=== PATIENT | female | born 1980 | race African-American/Black ===

== ENCOUNTER 2017-02-02 15:07 | Inpatient (IN) | payer SELFPAY ==
[~2017-02-02] VITALS: Ht 170.2 cm; Wt 59.4 kg
[~2017-02-02 15:07] MED LIST: ALPR0.25 PO; ASPI-630 PO; ASPI325T8 PO; ATOR20TA58 PO; CLIN150C14 PO; CLIN300C8 PO; FLUT16SP NS; FLUT9.9S NS; NAPR-682 PO; OMEP40CA5 PO; OXYC-323 PO; TRAM-48 PO
[2017-02-02] MEDS ORDERED: IV NORMAL SALINE 1000ML BAG 1,000 ML IV SCH (15:37)
[2017-02-02] MEDS ORDERED: ASPIRIN CHEWABLE 81 MG TABLET. PO ONE (15:45)
[2017-02-02 15:50] LABS: BASO % 1 % (0-3); EOS % 1 % (0-3); HEMATOCRIT 33.9 % (36.0-47.0); LYMPH # 1.8 x10^3/uL (1.0-4.8); LYMPH % 33 % (24-48); MEAN CORPUSCULAR HEMOGLOBIN 27 pg (25-35); MEAN CORPUSCULAR HGB CONC 33 g/dL (31-37); MEAN CORPUSCULAR VOLUME 81 fL (79-100); MONO % 8 % (0-9); NEUT % 58 % (31-73); PLATELET COUNT 254 x10^3/uL (140-400); RED BLOOD COUNT 4.16 x10^6/uL (3.50-5.40); RED CELL DISTRIBUTION WIDTH 21.5 % (11.5-14.5); WHITE BLOOD COUNT 5.4 x10^3/uL (4.0-11.0)
[2017-02-02 15:59] LABS: ANION GAP 10 (6-14); BLOOD UREA NITROGEN 10 mg/dL (7-20); CALCIUM 9.7 mg/dL (8.5-10.1); CARBON DIOXIDE 27 mmol/L (21-32); CHLORIDE 99 mmol/L (98-107); GFR 76.3; GLUCOSE 112 mg/dL (70-99); SODIUM 136 mmol/L (136-145)
[2017-02-02 16:04] LABS: ALBUMIN 4.2 g/dL (3.4-5.0); ALK PHOS 47 U/L (46-116); ALT (SGPT) 14 U/L (14-59); AST (SGOT) 18 U/L (15-37); DIRECT BILIRUBIN < 0.1 mg/dL (0.0-0.2); MAGNESIUM 2.2 mg/dL (1.8-2.4); TOTAL BILIRUBIN 0.2 mg/dL (0.2-1.0)
[2017-02-02 16:11] LABS: CREATINE KINASE 44 U/L (26-192)
[2017-02-02 16:16] LABS: CKMB MASS < 0.5 ng/mL (0.0-3.6)
[2017-02-02 16:38] LABS: BARBITURATES NEG (NEG); BENZODIAZEPINES NEG (NEG); CANNABINOIDS NEG (NEG); COCAINE NEG (NEG); METHADONE NEG (NEG); OPIATES NEG (NEG); PHENCYCLIDINE NEG (NEG)
--- NOTE | 2017-02-02 16:58 | RAD ---
Portable chest, 02/02/2017: History: Tachycardia Comparison is made to a study from 03/04/2016. The heart size and pulmonary vascularity are normal. A calcified granuloma is present in the right base. No pulmonary infiltrates are seen. There is no evidence of pleural fluid. IMPRESSION: No acute cardiopulmonary abnormality is detected.
[2017-02-02 17:25] LABS: ANISOCYTOSIS MOD; PLT ESTIMATE ADEQUATE (ADEQUATE); POLYCHROMASIA SLIGHT
--- NOTE | 2017-02-02 17:32 | PHYS DOC ---
Past Medical History Past Medical History: A-Fib, CVA Additional Past Medical Histor: PFO, CVA 2014 Past Surgical History: Tubal ligation Alcohol Use: None Drug Use: None Adult General Chief Complaint Chief Complaint: RAPID HEART RATE HPI HPI Patient is a 37 year old female who states that she was riding in the car with her boyfriend when she felt her heart beating very fast, she felt faint and she almost passed out. She told him to drive her here to get checked out. She feels a bit better now but still feels like her heart is pounding. She also feels a discomfort in her chest that feels like a burning or a rubbing sensation. Patient states she was recently hospitalized at [facility] for A. fib. She was discharged on January 31 with a prescription for diltiazem which she has been taking. Prior to this, she had not had a history of A. fib in the past. She is on low-dose aspirin but is not on a blood thinner. Patient states she has a PFO and had a CVA in 2014. She has only left hand numbness as a residual. She did not have echocardiogram during her recent hospitalization, that she has had a transesophageal echo in the past. Patient denies . She has had her tubes tied. Patient states that both of her legs feel weak and she feels "off balance". This started about 2 days ago. She has generalized weakness but it might be worse in her left leg. She has not had difficulty using her hands but her hand felt "shaky" when she tried to sign her name. No history of slurred speech or aphasia. Review of Systems Review of Systems Constitutional: Denies fever or chills [] HENT: Denies nasal congestion or sore throat [] Respiratory: Denies cough or shortness of breath [] Cardiovascular: As in history of present illness GI: Denies abdominal pain, nausea, vomiting, bloody stools or diarrhea [] : Denies Musculoskeletal: Denies back pain or joint pain [] Integument: Denies rash or skin lesions [] Neurologic: As in history of present illness Current Medications Current Medications Current Medications Medications (Trade) Dose Ordered Sig/Cassie Start Time Stop Time Status Last Admin Dose Admin Aspirin (Children'S Aspirin) 324 mg 1X ONCE 02/02/17 15:45 02/02/17 15:46 DC 02/02/17 15:48 324 MG Sodium Chloride 1,000 ml @ 1,000 mls/hr Q1H 02/02/17 15:37 02/02/17 16:36 DC 02/02/17 15:48 1,000 MLS/HR Allergies Allergies Allergies Coded Allergies Type Severity Reaction Last Updated Verified diphenhydramine Allergy Severe 01/04/16 Yes morphine Allergy Severe shortness of breath 07/08/15 Yes amoxicillin Allergy Intermediate hives 06/30/15 Yes hydrocodone Allergy Intermediate HIVES, tolerates Percocet 01/14/16 Yes ibuprofen Allergy Intermediate HIVES,tolerates aspirin 01/14/16 Yes Physical Exam Physical Exam Constitutional: Well developed, well nourished, no acute distress, non-toxic appearance. Alert, mentating normally, warm and dry. Heart rate in the range of 90, sinus rhythm on the monitor. When I had the patient sit up so I could listen to her lungs, her heart rate jumped up to 125-128, sinus tachycardia. Went back to the mid 90s after she laid back on the bed. HENT: Normocephalic, atraumatic, bilateral external ears normal, oropharynx moist, no oral exudates, nose normal. [] Eyes: conjunctiva normal, no discharge. [] Neck: Normal range of motion, no stridor. [] Cardiovascular:Heart rate regular rhythm, no murmur Lungs & Thorax: Bilateral breath sounds clear to auscultation [] Abdomen: Bowel sounds normal, soft, no tenderness, no masses, no pulsatile masses. [] Skin: Warm, dry, no erythema, no rash. [] Extremities: No tenderness, no cyanosis, no clubbing, ROM intact, no edema. [] Neurologic: Alert and oriented X 3, normal motor function, no focal deficits noted. No facial asymmetry, no speech disturbance, no slurred speech or aphasia. Upper extremity strength and lower extremity strength 5 over 5 and equal bilaterally. [id number] nose and heel to pandey normal bilaterally. Current Patient Data Vital Signs Vital Signs Date Time Temp Pulse Resp B/P (MAP) Pulse Ox O2 Delivery O2 Flow Rate FiO2 02/02/17 17:19 90 22 132/78 (96) 100 Room Air 02/02/17 15:19 98.3 98.3 Lab Values Laboratory Tests Test 9/10/17 15:28 02/02/17 15:30 02/02/17 16:15 POC Urine HCG, Qualitative Hcg negative (Negative) White Blood Count 5.4 x10^3/uL (4.0-11.0) Red Blood Count 4.16 x10^6/uL (3.50-5.40) Hemoglobin 11.0 g/dL (12.0-15.5) L Hematocrit 33.9 % (36.0-47.0) L Mean Corpuscular Volume 81 fL (79-100) Mean Corpuscular Hemoglobin 27 pg (25-35) Mean Corpuscular Hemoglobin Concent 33 g/dL (31-37) Red Cell Distribution Width 21.5 % (11.5-14.5) H Platelet Count 254 x10^3/uL (140-400) Neutrophils (%) (Auto) 58 % (31-73) Lymphocytes (%) (Auto) 33 % (24-48) Monocytes (%) (Auto) 8 % (0-9) Eosinophils (%) (Auto) 1 % (0-3) Basophils (%) (Auto) 1 % (0-3) Neutrophils # (Auto) 3.1 x10^3uL (1.8-7.7) Lymphocytes # (Auto) 1.8 x10^3/uL (1.0-4.8) Monocytes # (Auto) 0.4 x10^3/uL (0.0-1.1) Eosinophils # (Auto) 0.0 x10^3/uL (0.0-0.7) Basophils # (Auto) 0.0 x10^3/uL (0.0-0.2) Platelet Estimate Adequate (ADEQUATE) Polychromasia Slight Anisocytosis Mod D-Dimer (Stella) 0.85 ug/mlFEU (0.00-0.50) H Sodium Level 136 mmol/L (136-145) Potassium Level 4.0 mmol/L (3.5-5.1) Chloride Level 99 mmol/L (98-107) Carbon Dioxide Level 27 mmol/L (21-32) Anion Gap 10 (6-14) Blood Urea Nitrogen 10 mg/dL (7-20) Creatinine 1.0 mg/dL (0.6-1.0) Estimated GFR (Cockcroft-Gault) 76.3 Glucose Level 112 mg/dL (70-99) H Calcium Level 9.7 mg/dL (8.5-10.1) Magnesium Level 2.2 mg/dL (1.8-2.4) Total Bilirubin 0.2 mg/dL (0.2-1.0) Direct Bilirubin < 0.1 mg/dL (0.0-0.2) Aspartate Amino Transferase (AST) 18 U/L (15-37) Alanine Aminotransferase (ALT) 14 U/L (14-59) Alkaline Phosphatase 47 U/L (46-116) Creatine Kinase 44 U/L (26-192) Creatine Kinase MB (Mass) < 0.5 ng/mL (0.0-3.6) Creatine Kinase MB Relative Index 1.1 % (0-4) Troponin I Quantitative < 0.017 ng/mL (0.000-0.055) DW-Yog-L-Type Natriuretic Peptide 17 pg/mL (0-124) Total Protein 8.0 g/dL (6.4-8.2) Albumin 4.2 g/dL (3.4-5.0) Thyroid Stimulating Hormone (TSH) 0.943 uIU/mL (0.358-3.74) Urine Opiates Screen Neg (NEG) Urine Methadone Screen Neg (NEG) Urine Barbiturates Neg (NEG) Urine Phencyclidine Screen Neg (NEG) Urine Amphetamine/Methamphetamine Neg (NEG) Urine Benzodiazepines Screen Neg (NEG) Urine Cocaine Screen Neg (NEG) Urine Cannabinoids Screen Neg (NEG) Urine Ethyl Alcohol Neg (NEG) Laboratory Tests 02/02/17 15:30 Laboratory Tests 02/02/17 15:30 EKG EKG 12-lead EKG read by me. Sinus rhythm. Heart rate 87. There are no acute ST or T wave changes indicative of ischemia or infarction. No STEMI. 1813[] Rhythm strip interpretation by me: Heart rate 128, sinus tachycardia, when the patient sat up for lung exam. Radiology/Procedures Radiology/Procedures CT scan of the head read by the radiologist. No acute findings. CT angiography of the chest read by the radiologist. No pulmonary embolism or other abnormalities.[] Course & Med Decision Making Course & Med Decision Making Pertinent Labs and Imaging studies reviewed. (See chart for details) 37-year-old female presents with the sensation of tachycardia and near syncope. Patient gives a history of a recent episode of atrial fibrillation which apparently resolved on its own. Today she does not have atrial fibrillation or any other rhythm disturbance, but she did become significantly tachycardic when she sat up to take deep breaths for lung exam. I feel the patient needs further evaluation for significant sinus tachycardia and recent history of atrial fibrillation. Patient is concerned and wants to be further evaluated as well. I discussed the case with Dr. Pineda, [facility] medicine. She will admit the patient. I wrote bridge orders. The patient does have a history of CVA in 2015 that was attributed to PFO. Today , she did mention that she is concerned about recurrent CVA given the fact that she is "off balance" today and feels "like something isn't right". On evaluation in the ED, her neuro exam is normal. Her symptom onset was about 2 days ago, putting her well outside the window for thrombolytic consideration. Although she feels "off balance", her finger to nose and her bixf-ii-pabe is normal, and objectively tested her strength is normal bilaterally. CT scan of the head shows nothing acute today. Although possible subacute small CVA is a consideration, she is outside of the thrombolytic window and nothing further to be done at this time other than admission and workup of her recent atrial fibrillation episode and tachycardia. [] Dragon Disclaimer Dragon Disclaimer This electronic medical record was generated, in whole or in part, using a voice recognition dictation system. Departure Departure Impression: Primary Impression: PFO (patent foramen ovale) Additional Impressions: Sinus tachycardia Near syncope Disposition: 09 ADMITTED INPATIENT Admitting Physician: Rekha Pineda Condition: STABLE Referrals: ALEXUS ROBLES (PCP) Problem Qualifiers JOSE ELIAS TAVARES MD Feb 02, 2017 17:32
--- NOTE | 2017-02-02 17:33 | RAD ---
Indication: History of CVA. Axial imaging through the brain was performed without contrast. One or more of the following individualized dose reduction techniques were utilized for this examination: 1. Automated exposure control 2. Adjustment of the mA and/or kV according to patient size 3. Use of iterative reconstruction technique Comparison is made with prior exam from 07/08/2015. The ventricles and sulci are within normal limits. No sulcal effacement, midline shift or hemorrhage is detected. Cisterns are patent. The visualized paranasal sinuses are clear. IMPRESSION: No acute intracranial process is detected. Electronically signed by: Oswald Quezada MD (02/02/2017 5:30 PM) [facility]
--- NOTE | 2017-02-02 17:33 | RAD ---
CTA chest with contrast Indication: tachycardia, elevated d-dimer. r/o pe. iv omni 300 75 mls. . Comparison: No comparison is available. Technique: After bolus of intravenous contrast, CT imaging was performed of the chest. MIP reconstructions were obtained. Exposure: One or more of the following individualized dose reduction techniques were utilized for this examination: 1. Automated exposure control 2. Adjustment of the mA and/or kV according to patient size 3. Use of iterative reconstruction technique. Findings: Pulmonary arteries:No evidence of pulmonary embolism. Thoracic aorta: No evidence of aneurysm or dissection. Great vessel origins: There is an aberrant right subclavian artery, with a retroesophageal course. Thyroid gland:Visualized aspect is unremarkable. Lymph nodes:No significant enlargement Heart: No significant pericadial effusion. Pleural spaces: No significant effusion Lungs: Dense calcified granuloma in the right lung. Trachea and central airways: Patent Bones: No destructive process Upper abdomen: Slices were obtained through the upper abdomen, but are of limited usefulness due to technique.No obvious acute findings. Impression: No evidence of pulmonary embolism or acute abnormality. Electronically signed by: Jose William MD (02/02/2017 5:29 PM) [place] [id number]
[2017-02-02] MEDS: IV NORMAL SALINE 1000ML BAG 1,000 ML IV SCH ×2 (17:34→21:16)
[2017-02-02] MEDS ORDERED: ONDANSETRON PF 4 MG/2 ML VIAL. IV PRN ×2 (17:45→18:00)
[2017-02-02] MEDS ORDERED: IOHEXOL 300 MG/ML 75 ML VIAL IV ONE (17:45)
[2017-02-02] MEDS ORDERED: ONDANSETRON PF 4 MG/2 ML VIAL. IV ONE (17:45)
[2017-02-02] MEDS ORDERED: CONTRAST GIVEN MC PRN (17:45)
[2017-02-02] MEDS ORDERED: diphenhydrAMINE HCL 25 MG CAPSULE PO PRN (18:00)
[2017-02-02] MEDS ORDERED: traMADol 50 MG TABLET PO PRN (18:00)
[2017-02-02] MEDS ORDERED: fentaNYL PF VIAL 100 MCG/2 ML VIAL IV PRN (18:00)
[2017-02-02] MEDS ORDERED: ACETAMINOPHEN 500 MG TABLET PO PRN (18:00)
[2017-02-02 18:15] VITALS: BP 125/80
[2017-02-02] MEDS ORDERED: PANT40TA3 PO (19:12)
[2017-02-02] MEDS ORDERED: DOXY100C14 PO (19:12)
[2017-02-02] MEDS ORDERED: ESCITALOPRAM OX10 MG PO (19:12)
[2017-02-02] MEDS ORDERED: LIDO:MAALOX:DONNATAL 1:1:1 15 ML SINGLE DOSE SWSW ONE (20:15)
[2017-02-02] MEDS ORDERED: CALCIUM CARBONATE 500 MG TAB.CHEW PO PRN (20:15)
[2017-02-02] MEDS ORDERED: LIDO:MAALOX:DONNATAL 1:1:1 15 ML SINGLE DOSE SWSW PRN (20:15)
--- NOTE | 2017-02-02 20:21 | PDOC1 ---
History and Physical Date of Admission Date of Admission DATE: 02/02/17 TIME: 20:13 Identification/Chief Complaint Chief Complaint palpitations,. lightheaded, ill feeling with recent cardizem PO Problems: Source Source: Caregiver, Chart review, Patient History of Present Illness History of Present Illness 37 y.o AA female who was in the car with her boyfriend today, developed the above sx so went to ER, She was in [facility] 2 days ago, spent overnight there for what sounds like a dx of paroxysmal atrial fib, no echo done she claims, dcd on PO cardizem. She only has been taking it 2 days and claims she does not like the feeling it gave her, .lightheaded etc,. She claims she did check her BP and is actually on high side, She is now NSR. She intially would go to 120s bpm at ER while at rest talking to ER mD. NOw SBP 120s, HR 80s at rest, Also she mentions bothersome GERD sxs, has not picked up PPI rx'd by . She claims she can hardly eat bec of severe reflux sxs and has lost 2 lbs. (131 to 128 lbs), She is interested in seeing GI MD while in house, though I went to the full education of trial of PPI first then OP GI if sxs persist, LAbs and CXR all ok Past Medical History Cardiovascular: Other (paroxysmal atrial fib) Pulmonary: No pertinent hx CENTRAL NERVOUS SYSTEM: Other GI: GERD Heme/Onc: No pertinent hx Hepatobiliary: No pertinent hx Psych: No pertinent hx Rheumatologic: No pertinent hx Infectious disease: No pertinent hx ENT: No pertinent hx Renal/: No pertinent hx Endocrine: No pertinent hx Dermatology: No pertinent hx Past Surgical History Past Surgical History: Tubal Ligation Family History Family History: Hypertension, Other Social History Smoke: No ALCOHOL: none Drugs: None Current Problem List Problem List Problems Medical Problems: (1) Near syncope Status: Acute (2) PFO (patent foramen ovale) Status: Acute (3) Sinus tachycardia Status: Acute Problems: Current Medications Current Medications Current Medications Aspirin (Children'S Aspirin) 324 mg 1X ONCE PO Last administered on 02/02/17t 15:48; Start 02/02/17 at 15:45; Stop 02/02/17 at 15:46; Status DC Sodium Chloride 1,000 ml @ 1,000 mls/hr Q1H IV Last administered on 02/02/17t 15:48; Start 02/02/17 at 15:37; Stop 02/02/17 at 16:36; Status DC Iohexol (Omnipaque 300 Mg/ml) 75 ml 1X ONCE IV ; Start 02/02/17 at 17:45; Stop 02/02/17 at 17:46; Status DC Ondansetron HCl (Zofran) 4 mg 1X ONCE IV ; Start 02/02/17 at 17:45; Stop at 17:46; Status DC Ondansetron HCl (Zofran) 4 mg PRN Q8HRS PRN IV NAUSEA/VOMITING; Start 02/02/17 at 17:45; Stop 02/02/17 at 17:55; Status DC Sodium Chloride 1,000 ml @ 100 mls/hr Q10H IV ; Start 02/02/17 at 17:34; Stop 02/03/17 at 17:33 Info (Do NOT chart on this entry -- for MONITORING) 1 each PRN DAILY PRN MC SEE COMMENTS; Start 02/02/17 at 17:45; Stop 02/04/17 at 17:44 Ondansetron HCl (Zofran) 4 mg PRN Q6HRS PRN IV NAUSEA/VOMITING; Start 02/02/17 at 18:00; Stop 02/03/17 at 17:59 Acetaminophen (Tylenol) 500 mg PRN QID PRN PO pain; Start 02/02/17 at 18:00 Tramadol HCl (Ultram) 50 mg PRN QID PRN PO pain; Start 02/02/17 at 18:00 Aspirin (Children'S Aspirin) 81 mg DAILY PO ; Start 02/03/17 at 09:00 Atorvastatin Calcium (Lipitor) 20 mg QHS PO ; Start 02/02/17 at 21:00 Fluticasone Propionate (Flonase) 2 spray DAILY NS ; Start 02/03/17 at 09:00 Diphenhydramine HCl (Benadryl) 25 mg QHS PRN PO sleep; Start 02/02/17 at 18:00 ; Stop 02/02/17 at 18:28; Status DC Fentanyl Citrate (Fentanyl 2ml Vial) 25 mcg PRN Q2HR PRN IV pain; Start at 18:00 Alprazolam (Xanax) 0.25 mg PRN QID PRN PO nerves; Start 02/02/17 at 18:00 Active Scripts Active Fluticasone Propionate Nasal Kingston (Fluticasone Propionate) 16 Gm Kingston.susp 2 Kingston NS DAILY Atorvastatin Calcium 20 Mg Tablet 20 Mg PO QHS Reported Doxycycline Monohydrate 100 Mg Capsule 100 Mg PO BID 10 Days Escitalopram Oxalate 10 Mg Tablet 10 Mg PO DAILY Protonix (Pantoprazole Sodium) 40 Mg Tablet.dr 40 Mg PO DAILY Aspirin 81 Mg Tab.chew 1 Tab PO DAILY Allergies Allergies: Coded Allergies: diphenhydramine (Verified Allergy, Severe, 01/04/16) SVT morphine (Verified Allergy, Severe, shortness of breath, 07/08/15) amoxicillin (Verified Allergy, Intermediate, hives, 06/30/15) hydrocodone (Verified Allergy, Intermediate, HIVES, tolerates Percocet, ) ibuprofen (Verified Allergy, Intermediate, HIVES,tolerates aspirin, ) ROS Review of System per HPI, all else is neg 14 pt reviewed Physical Exam General: Alert, Oriented X3, Cooperative, No acute distress HEENT: Atraumatic, PERRLA, EOMI Lungs: Clear to auscultation, Normal air movement Heart: S1S2, RRR, no thrills, no rubs, no gallops, no murmurs Cardiovascular: S1, S2 Breasts: Normal, Rt breast nml w/o mass, Lt breast nml w/o mass, Nipples normal Abdomen: Normal bowel sounds, Soft, No tenderness, No hepatosplenomegaly, No masses Rectal Exam: not examined PELVIC: Nml ext genitalia Extremities: No clubbing, No cyanosis, No edema, Normal pulses, No tenderness/ swelling Skin: No rashes, No breakdown, No significant lesion Neuro: Normal gait, Normal speech, Strength at 5/5 X4 ext, Normal tone, Sensation intact, Cranial nerves 3-12 NL, Reflexes 2+ Psych/Mental Status: Mental status NL, Mood NL Vitals Vitals Vital Signs Date Time Temp Pulse Resp B/P (MAP) Pulse Ox O2 Delivery O2 Flow Rate FiO2 02/02/17 18:15 98.8 87 20 125/80 (95) 99 Room Air 98.8 Labs Labs Laboratory Tests Test 02/02/17 15:28 02/02/17 15:30 02/02/17 16:15 02/02/17 19:00 Bedside Urine HCG, Qualitative Hcg negative (Negative) White Blood Count 5.4 x10^3/uL (4.0-11.0) Red Blood Count 4.16 x10^6/uL (3.50-5.40) Hemoglobin 11.0 g/dL (12.0-15.5) Hematocrit 33.9 % (36.0-47.0) Mean Corpuscular Volume 81 fL (79-100) Mean Corpuscular Hemoglobin 27 pg (25-35) Mean Corpuscular Hemoglobin Concent 33 g/dL (31-37) Red Cell Distribution Width 21.5 % (11.5-14.5) Platelet Count 254 x10^3/uL (140-400) Neutrophils (%) (Auto) 58 % (31-73) Lymphocytes (%) (Auto) 33 % (24-48) Monocytes (%) (Auto) 8 % (0-9) Eosinophils (%) (Auto) 1 % (0-3) Basophils (%) (Auto) 1 % (0-3) Neutrophils # (Auto) 3.1 x10^3uL (1.8-7.7) Lymphocytes # (Auto) 1.8 x10^3/uL (1.0-4.8) Monocytes # (Auto) 0.4 x10^3/uL (0.0-1.1) Eosinophils # (Auto) 0.0 x10^3/uL (0.0-0.7) Basophils # (Auto) 0.0 x10^3/uL (0.0-0.2) Platelet Estimate Adequate (ADEQUATE) Polychromasia Slight Anisocytosis Mod D-Dimer (Stella) 0.85 ug/mlFEU (0.00-0.50) Sodium Level 136 mmol/L (136-145) Potassium Level 4.0 mmol/L (3.5-5.1) Chloride Level 99 mmol/L (98-107) Carbon Dioxide Level 27 mmol/L (21-32) Anion Gap 10 (6-14) Blood Urea Nitrogen 10 mg/dL (7-20) Creatinine 1.0 mg/dL (0.6-1.0) Estimated GFR (Cockcroft-Gault) 76.3 Glucose Level 112 mg/dL (70-99) Calcium Level 9.7 mg/dL (8.5-10.1) Magnesium Level 2.2 mg/dL (1.8-2.4) Total Bilirubin 0.2 mg/dL (0.2-1.0) Direct Bilirubin < 0.1 mg/dL (0.0-0.2) Aspartate Amino Transf (AST/SGOT) 18 U/L (15-37) Alanine Aminotransferase (ALT/SGPT) 14 U/L (14-59) Alkaline Phosphatase 47 U/L (46-116) Creatine Kinase 44 U/L (26-192) Creatine Kinase MB (Mass) < 0.5 ng/mL (0.0-3.6) Creatine Kinase MB Relative Index 1.1 % (0-4) Troponin I Quantitative < 0.017 ng/mL (0.000-0.055) < 0.017 ng/mL (0.000-0.055) KG-Kyf-V-Type Natriuretic Peptide 17 pg/mL (0-124) Total Protein 8.0 g/dL (6.4-8.2) Albumin 4.2 g/dL (3.4-5.0) Thyroid Stimulating Hormone (TSH) 0.943 uIU/mL (0.358-3.74) Urine Opiates Screen Neg (NEG) Urine Methadone Screen Neg (NEG) Urine Barbiturates Neg (NEG) Urine Phencyclidine Screen Neg (NEG) Urine Amphetamine/Methamphetamine Neg (NEG) Urine Benzodiazepines Screen Neg (NEG) Urine Cocaine Screen Neg (NEG) Urine Cannabinoids Screen Neg (NEG) Urine Ethyl Alcohol Neg (NEG) Laboratory Tests Test 02/02/17 15:28 02/02/17 15:30 02/02/17 16:15 02/02/17 19:00 Bedside Urine HCG, Qualitative Hcg negative (Negative) White Blood Count 5.4 x10^3/uL (4.0-11.0) Red Blood Count 4.16 x10^6/uL (3.50-5.40) Hemoglobin 11.0 g/dL (12.0-15.5) Hematocrit 33.9 % (36.0-47.0) Mean Corpuscular Volume 81 fL (79-100) Mean Corpuscular Hemoglobin 27 pg (25-35) Mean Corpuscular Hemoglobin Concent 33 g/dL (31-37) Red Cell Distribution Width 21.5 % (11.5-14.5) Platelet Count 254 x10^3/uL (140-400) Neutrophils (%) (Auto) 58 % (31-73) Lymphocytes (%) (Auto) 33 % (24-48) Monocytes (%) (Auto) 8 % (0-9) Eosinophils (%) (Auto) 1 % (0-3) Basophils (%) (Auto) 1 % (0-3) Neutrophils # (Auto) 3.1 x10^3uL (1.8-7.7) Lymphocytes # (Auto) 1.8 x10^3/uL (1.0-4.8) Monocytes # (Auto) 0.4 x10^3/uL (0.0-1.1) Eosinophils # (Auto) 0.0 x10^3/uL (0.0-0.7) Basophils # (Auto) 0.0 x10^3/uL (0.0-0.2) Platelet Estimate Adequate (ADEQUATE) Polychromasia Slight Anisocytosis Mod D-Dimer (Stella) 0.85 ug/mlFEU (0.00-0.50) Sodium Level 136 mmol/L (136-145) Potassium Level 4.0 mmol/L (3.5-5.1) Chloride Level 99 mmol/L (98-107) Carbon Dioxide Level 27 mmol/L (21-32) Anion Gap 10 (6-14) Blood Urea Nitrogen 10 mg/dL (7-20) Creatinine 1.0 mg/dL (0.6-1.0) Estimated GFR (Cockcroft-Gault) 76.3 Glucose Level 112 mg/dL (70-99) Calcium Level 9.7 mg/dL (8.5-10.1) Magnesium Level 2.2 mg/dL (1.8-2.4) Total Bilirubin 0.2 mg/dL (0.2-1.0) Direct Bilirubin < 0.1 mg/dL (0.0-0.2) Aspartate Amino Transf (AST/SGOT) 18 U/L (15-37) Alanine Aminotransferase (ALT/SGPT) 14 U/L (14-59) Alkaline Phosphatase 47 U/L (46-116) Creatine Kinase 44 U/L (26-192) Creatine Kinase MB (Mass) < 0.5 ng/mL (0.0-3.6) Creatine Kinase MB Relative Index 1.1 % (0-4) Troponin I Quantitative < 0.017 ng/mL (0.000-0.055) < 0.017 ng/mL (0.000-0.055) VJ-Bog-O-Type Natriuretic Peptide 17 pg/mL (0-124) Total Protein 8.0 g/dL (6.4-8.2) Albumin 4.2 g/dL (3.4-5.0) Thyroid Stimulating Hormone (TSH) 0.943 uIU/mL (0.358-3.74) Urine Opiates Screen Neg (NEG) Urine Methadone Screen Neg (NEG) Urine Barbiturates Neg (NEG) Urine Phencyclidine Screen Neg (NEG) Urine Amphetamine/Methamphetamine Neg (NEG) Urine Benzodiazepines Screen Neg (NEG) Urine Cocaine Screen Neg (NEG) Urine Cannabinoids Screen Neg (NEG) Urine Ethyl Alcohol Neg (NEG) VTE Prophylaxis Ordered VTE Prophylaxis Devices: Yes VTE Pharmacological Prophylaxi: Yes Assessment/Plan Assessment/Plan 1. Palpitations, lightheadedness, 2. Recent dc paroxysmal atrial fib in (dcd jan 31, 2017) dcd on PO cardizem 3. CLaims intolerance to cardizem 4. GERD PLAn: Admit, edvin izaguirre Did advise her to cont cardziem and give it time to work/observe its effects If arrhythmia sxs persist, might need event monitor as OP TSH is normal The rest per cards Might need to check echo - claims MAUREEN never did Get records from PPI daily, melvina pederson Would like to see GI while admitted Seen and discussed with JAGDEEP Jacobson at bedside TOOTIE KNIGHT MD Feb 02, 2017 20:20
[2017-02-02 20:52] VITALS: BP 91/50
[2017-02-02] MEDS: ATORVASTATIN CALCIUM 20 MG TABLET PO SCH (21:04)
[2017-02-02] MEDS: ALPRAZolam 0.25 MG TABLET PO PRN (22:23)
[2017-02-02 23:29] VITALS: BP 99/62
[2017-02-02] MEDS: METOPROLOL TART IMMED RELEASE 25 MG TABLET. PO SCH (23:49)
[2017-02-03 03:55] VITALS: BP 103/62
[2017-02-03] MEDS: METOPROLOL TART IMMED RELEASE 25 MG TABLET. PO SCH ×2 (05:48→23:18)
--- NOTE | 2017-02-03 06:14 | EKG ---
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
[2017-02-03 07:00] VITALS: BP 114/60
[2017-02-03 07:09] LABS: CHOLESTEROL/HDL RATIO 2.8
[2017-02-03] MEDS: IV NORMAL SALINE 1000ML BAG 1,000 ML IV SCH (07:51)
[2017-02-03] MEDS ORDERED: ASPIRIN CHEWABLE 81 MG TABLET. PO SCH (09:00)
--- NOTE | 2017-02-03 10:13 | PDOC2 ---
OLGA ANDUJAR VISITOR SERVICES SPECIALIST 02/03/17 1013: CARDIAC CONSULT DATE OF CONSULT Date of Consult DATE: 02/03/17 TIME: 10:00 REASON FOR CONSULT Reason for Consult: recent AFIB, PFO hx, sinus tach REFERRING PHYSICIAN Referring Physician: Redd SOURCE Source: Chart review, Patient HISTORY OF PRESENT ILLNESS HISTORY OF PRESENT ILLNESS This is a pleasant 37 yo female admitted for complains of palpitations and chest discomfort. Reports that she has not been taking any reflux medications has been having frequent episodes of heartburn. Reports that this came first prior to her heart starting to feel like it was beating fast. when she starts having sensation of palpitations she feels tightness in her chest as well and feeling dizzy as well. Denies any vomiting, or diaphoresis and no significant SOA. Reports though that her palpitations is a daily occurrence. She was at 01/31 amd was discharge on 02/01. She was noted with sinus tachycardia but she said there may be a mention of AFIB but no conclusive evidence during her stay here and no mention per chart review. She is significant for PSVT in the past and was actually with heart monitor for 4 weeks dating Feb-Mar 2016 and noted with SR with occasional PACs otherwise no significant ectopies. She is positive for PFO in the past with cryptogenic stroke as well with no residuals and no further recurrence. Upon discharge in she was started on cardizem. Upon admission she was given a low dose metoprolol and was noted with HR in the 40-50s. Overnight she has had episodes of HR in the 130s but brief. Presently she feels like she is having palpitations but her HR is in the 80s. She has anxiety issues and she has been noted to be taking her sisters xanax as well. PAST MEDICAL HISTORY Cardiovascular: Hyperlipidemia, Other (PFO, palpitations, PSVT; presyncope) Pulmonary: Asthma CENTRAL NERVOUS SYSTEM: CVA (03/2015- cryptogenic) GI: GERD Heme/Onc: No pertinent hx Hepatobiliary: No pertinent hx Psych: Anxiety Rheumatologic: No pertinent hx Infectious disease: No pertinent hx ENT: Allergic Rhinitis Renal/: No pertinent hx Endocrine: No pertinent hx Dermatology: No pertinent hx PAST SURGICAL HISTORY Past Surgical History: Tubal Ligation FAMILY HISTORY Family History noncontributory SOCIAL HISTORY Smoke: No ALCOHOL: occassional Drugs: None Lives: with Family CURRENT MEDICATIONS CURRENT MEDICATIONS Current Medications Medications (Trade) Dose Ordered Sig/Cassie Route PRN Reason Start Time Stop Time Status Last Admin Dose Admin Aspirin (Children'S Aspirin) 324 mg 1X ONCE PO 02/02/17 15:45 02/02/17 15:46 DC 02/02/17 15:48 Sodium Chloride 1,000 ml @ 1,000 mls/hr Q1H IV 02/02/17 15:37 02/02/17 16:36 DC 02/02/17 15:48 Sodium Chloride 1,000 ml @ 100 mls/hr Q10H IV 02/02/17 17:34 02/03/17 17:33 02/03/17 07:51 Acetaminophen (Tylenol) 500 mg PRN QID PRN PO pain 02/02/17 18:00 02/02/17 21:13 Atorvastatin Calcium (Lipitor) 20 mg QHS PO 02/02/17 21:00 02/02/17 21:04 Alprazolam (Xanax) 0.25 mg PRN QID PRN PO nerves 02/02/17 18:00 02/02/17 22:23 Multi-Ingredient Mouthwash/Gargle (Gi Cocktail Single Dose) 15 ml 1X ONCE SWSW 02/02/17 20:15 02/02/17 20:18 DC 02/02/17 21:05 Metoprolol Tartrate (Lopressor) 12.5 mg Q6HRS PO 02/03/17 00:00 02/02/17 23:49 ALLERGIES ALLERGIES: Coded Allergies: diphenhydramine (Verified Allergy, Severe, 01/04/16) SVT morphine (Verified Allergy, Severe, shortness of breath, 07/08/15) amoxicillin (Verified Allergy, Intermediate, hives, 06/30/15) hydrocodone (Verified Allergy, Intermediate, HIVES, tolerates Percocet, ) ibuprofen (Verified Allergy, Intermediate, HIVES,tolerates aspirin, ) ROS Review of System 14 point ROS evaluated with pertinent positives noted per HPI PHYSICAL EXAM General: Alert, Oriented X3, Cooperative, No acute distress HEENT: Atraumatic, Mucous membr. moist/pink Lungs: Clear to auscultation, Normal air movement Heart: Regular rate (SR), Normal S1, Normal S2 Abdomen: Soft, No tenderness Extremities: No cyanosis, No edema Skin: No breakdown, No significant lesion Neuro: Normal speech, Sensation intact Psych/Mental Status: Mental status NL, Other (anxiety) MUSCULOSKELETAL: Full range of motion without pain VITALS VITALS Vital Signs Date Time Temp Pulse Resp B/P (MAP) Pulse Ox O2 Delivery O2 Flow Rate FiO2 02/03/17 07:00 98.4 73 16 114/60 (78) 100 Room Air 98.4 LABS Lab: Laboratory Tests Test 02/02/17 15:28 02/02/17 15:30 02/02/17 16:15 02/02/17 19:00 Bedside Urine HCG, Qualitative Hcg negative (Negative) White Blood Count 5.4 x10^3/uL (4.0-11.0) Red Blood Count 4.16 x10^6/uL (3.50-5.40) Hemoglobin 11.0 g/dL (12.0-15.5) Hematocrit 33.9 % (36.0-47.0) Mean Corpuscular Volume 81 fL (79-100) Mean Corpuscular Hemoglobin 27 pg (25-35) Mean Corpuscular Hemoglobin Concent 33 g/dL (31-37) Red Cell Distribution Width 21.5 % (11.5-14.5) Platelet Count 254 x10^3/uL (140-400) Neutrophils (%) (Auto) 58 % (31-73) Lymphocytes (%) (Auto) 33 % (24-48) Monocytes (%) (Auto) 8 % (0-9) Eosinophils (%) (Auto) 1 % (0-3) Basophils (%) (Auto) 1 % (0-3) Neutrophils # (Auto) 3.1 x10^3uL (1.8-7.7) Lymphocytes # (Auto) 1.8 x10^3/uL (1.0-4.8) Monocytes # (Auto) 0.4 x10^3/uL (0.0-1.1) Eosinophils # (Auto) 0.0 x10^3/uL (0.0-0.7) Basophils # (Auto) 0.0 x10^3/uL (0.0-0.2) Platelet Estimate Adequate (ADEQUATE) Polychromasia Slight Anisocytosis Mod D-Dimer (Stella) 0.85 ug/mlFEU (0.00-0.50) Sodium Level 136 mmol/L (136-145) Potassium Level 4.0 mmol/L (3.5-5.1) Chloride Level 99 mmol/L (98-107) Carbon Dioxide Level 27 mmol/L (21-32) Anion Gap 10 (6-14) Blood Urea Nitrogen 10 mg/dL (7-20) Creatinine 1.0 mg/dL (0.6-1.0) Estimated GFR (Cockcroft-Gault) 76.3 Glucose Level 112 mg/dL (70-99) Calcium Level 9.7 mg/dL (8.5-10.1) Magnesium Level 2.2 mg/dL (1.8-2.4) Total Bilirubin 0.2 mg/dL (0.2-1.0) Direct Bilirubin < 0.1 mg/dL (0.0-0.2) Aspartate Amino Transf (AST/SGOT) 18 U/L (15-37) Alanine Aminotransferase (ALT/SGPT) 14 U/L (14-59) Alkaline Phosphatase 47 U/L (46-116) Creatine Kinase 44 U/L (26-192) Creatine Kinase MB (Mass) < 0.5 ng/mL (0.0-3.6) Creatine Kinase MB Relative Index 1.1 % (0-4) Troponin I Quantitative < 0.017 ng/mL (0.000-0.055) < 0.017 ng/mL (0.000-0.055) HA-Ryn-F-Type Natriuretic Peptide 17 pg/mL (0-124) Total Protein 8.0 g/dL (6.4-8.2) Albumin 4.2 g/dL (3.4-5.0) Triglycerides Level 48 mg/dL (0-150) Cholesterol Level 187 mg/dL (0-200) LDL Cholesterol, Calculated 110 mg/dL (0-100) VLDL Cholesterol, Calculated 10 mg/dL (0-40) Non-HDL Cholesterol Calculated 120 mg/dL (0-129) HDL Cholesterol 67 mg/dL (40-60) Cholesterol/HDL Ratio 2.8 Thyroid Stimulating Hormone (TSH) 0.943 uIU/mL (0.358-3.74) Urine Opiates Screen Neg (NEG) Urine Methadone Screen Neg (NEG) Urine Barbiturates Neg (NEG) Urine Phencyclidine Screen Neg (NEG) Urine Amphetamine/Methamphetamine Neg (NEG) Urine Benzodiazepines Screen Neg (NEG) Urine Cocaine Screen Neg (NEG) Urine Cannabinoids Screen Neg (NEG) Urine Ethyl Alcohol Neg (NEG) Test 02/02/17 21:25 Troponin I Quantitative < 0.017 ng/mL (0.000-0.055) ECHOCARDIOGRAM ECHOCARDIOGRAM <Conclusion> TTE Left ventricle systolic function is normal. The Ejection Fraction is 65-70%. There is normal LV segmental wall motion. Patient has a known PFO from previous TRISTEN with bubble study. Color doppler was negative on this study. No significant valvular disease. DATE: 03/05/16 152 STRESS TEST STRESS TEST IMPRESSION Normal Myocardial Perfusion exercise stress study Conclusion 1. No evidence of stress induced EKG changes. 2. Normal myocardial perfusion at stress/rest. 3. Normal EF at stress at > 70% 4. Low risk study DATE: 03/05/16 152 ASSESSMENT/PLAN ASSESSMENT/PLAN 1. Palpitations/dizziness: notable for PSVT hx, possibly inappropriate sinus tach with max rate noted at 130s. Presently SR 80s with occasional PACs. TSH normal per review 2. GERD exacerbation, GI following 3. Hx of PFO: not a candidate for closure due to nickel allergy 4. Hx of cryptogenic stroke: no residuals. 5. HLP 6. Uncontrolled anxiety: pt has been taking her sister's xanax. 7. Sinus bradycardia: mainly induced by cardizem CD use. Recommendations 1. DC cardizem 120 mg and start on low dose metoprolol tartrate at 12.5 mg po bid. Continue statin 2. Will likely need a loop recorder to further differentiate any episodic tachyarrhythmias. Will discuss and reevaluate as an outpt. 3. Continue with low dose ECASA. 4. Discuss treatment compliance and follow up. 5. TTE today Problems: MARIJA BLOOM MD 02/03/17 9225: CARDIAC CONSULT ALLERGIES ALLERGIES: Coded Allergies: diphenhydramine (Verified Allergy, Severe, 01/04/16) SVT morphine (Verified Allergy, Severe, shortness of breath, 07/08/15) amoxicillin (Verified Allergy, Intermediate, hives, 06/30/15) hydrocodone (Verified Allergy, Intermediate, HIVES, tolerates Percocet, ) ibuprofen (Verified Allergy, Intermediate, HIVES,tolerates aspirin, ) ASSESSMENT/PLAN ASSESSMENT/PLAN Patient seen and examined. Agree with MAID SUPERVISOR's assessment and plan. Telemetry did not show any significant arrhythmias. 2-D echo showed normal LV systolic function without any wall motion abnormalities. Agree with initiating beta blockers. We will consider loop recorder implantation as an outpatient. Thank you for your consultation. Problems: OLGA ANDUJAR APRN Feb 03, 2017 10:13 MARIJA BLOOM MD Feb 03, 2017 16:57
--- NOTE | 2017-02-03 10:40 | PDOC2 ---
GI CONSULT Reason For Consult: Severe GERD HPI: HPI: 37 y/o female admitted w/ lightheadedness. PMH as below, cardiology eval pending. Has had GERD symptoms for at least a year; describes heartburn and reflux daily w/ dysphagia-type symptoms (food goes down slowly and "hangs" in epigastrium). Some nausea after eating; avoids eating as a result, has lost 3 pounds recently. Some periumbilical pain which is a newer symptom but comes and goes. Radiates to upper back, "burning like a heart attack." Alternating bowel habits w/ diarrhea one day followed by constipation several days later. Currently more on the constipation side, had a small greenish stool yesterday. Takes ASA, no NSAIDs. No gallbladder, liver, or pancreas history. Tried omeprazole QD x 6 months, stopped due to sore throat. Now takes Zantac or Tums PRN. No previous EGD or colonoscopy. Has PPI, Mylanta, Tums, and GI cocktail ordered here but kept NPO this morning. PMH: PMH: A Fib, PFO, CVA, GERD, tubal ligation FH: Family History: No pertinent hx (denies GI cancers) Social History: Smoke: No ALCOHOL: none Drugs: None ROS: GEN: Denies fevers, chills, sweats HEENT: Denies blurred vision, sore throat CV: Denies chest pain RESP: Denies shortness of air, cough GI: Per HPI : Denies hematuria, dysuria ENDO: +weight loss NEURO: +lightheaded MSK: Denies weakness, joint pain/swelling SKIN: Denies jaundice, pruritus Vitals: Vitals: Vital Signs Date Time Temp Pulse Resp B/P (MAP) Pulse Ox O2 Delivery O2 Flow Rate FiO2 02/03/17 07:00 98.4 73 16 114/60 (78) 100 Room Air 98.4 Labs: Labs: Laboratory Tests Test 02/02/17 15:28 02/02/17 15:30 02/02/17 16:15 02/02/17 19:00 Bedside Urine HCG, Qualitative Hcg negative (Negative) White Blood Count 5.4 x10^3/uL (4.0-11.0) Red Blood Count 4.16 x10^6/uL (3.50-5.40) Hemoglobin 11.0 g/dL (12.0-15.5) Hematocrit 33.9 % (36.0-47.0) Mean Corpuscular Volume 81 fL (79-100) Mean Corpuscular Hemoglobin 27 pg (25-35) Mean Corpuscular Hemoglobin Concent 33 g/dL (31-37) Red Cell Distribution Width 21.5 % (11.5-14.5) Platelet Count 254 x10^3/uL (140-400) Neutrophils (%) (Auto) 58 % (31-73) Lymphocytes (%) (Auto) 33 % (24-48) Monocytes (%) (Auto) 8 % (0-9) Eosinophils (%) (Auto) 1 % (0-3) Basophils (%) (Auto) 1 % (0-3) Neutrophils # (Auto) 3.1 x10^3uL (1.8-7.7) Lymphocytes # (Auto) 1.8 x10^3/uL (1.0-4.8) Monocytes # (Auto) 0.4 x10^3/uL (0.0-1.1) Eosinophils # (Auto) 0.0 x10^3/uL (0.0-0.7) Basophils # (Auto) 0.0 x10^3/uL (0.0-0.2) Platelet Estimate Adequate (ADEQUATE) Polychromasia Slight Anisocytosis Mod D-Dimer (Stella) 0.85 ug/mlFEU (0.00-0.50) Sodium Level 136 mmol/L (136-145) Potassium Level 4.0 mmol/L (3.5-5.1) Chloride Level 99 mmol/L (98-107) Carbon Dioxide Level 27 mmol/L (21-32) Anion Gap 10 (6-14) Blood Urea Nitrogen 10 mg/dL (7-20) Creatinine 1.0 mg/dL (0.6-1.0) Estimated GFR (Cockcroft-Gault) 76.3 Glucose Level 112 mg/dL (70-99) Calcium Level 9.7 mg/dL (8.5-10.1) Magnesium Level 2.2 mg/dL (1.8-2.4) Total Bilirubin 0.2 mg/dL (0.2-1.0) Direct Bilirubin < 0.1 mg/dL (0.0-0.2) Aspartate Amino Transf (AST/SGOT) 18 U/L (15-37) Alanine Aminotransferase (ALT/SGPT) 14 U/L (14-59) Alkaline Phosphatase 47 U/L (46-116) Creatine Kinase 44 U/L (26-192) Creatine Kinase MB (Mass) < 0.5 ng/mL (0.0-3.6) Creatine Kinase MB Relative Index 1.1 % (0-4) Troponin I Quantitative < 0.017 ng/mL (0.000-0.055) < 0.017 ng/mL (0.000-0.055) FN-Bdi-E-Type Natriuretic Peptide 17 pg/mL (0-124) Total Protein 8.0 g/dL (6.4-8.2) Albumin 4.2 g/dL (3.4-5.0) Triglycerides Level 48 mg/dL (0-150) Cholesterol Level 187 mg/dL (0-200) LDL Cholesterol, Calculated 110 mg/dL (0-100) VLDL Cholesterol, Calculated 10 mg/dL (0-40) Non-HDL Cholesterol Calculated 120 mg/dL (0-129) HDL Cholesterol 67 mg/dL (40-60) Cholesterol/HDL Ratio 2.8 Thyroid Stimulating Hormone (TSH) 0.943 uIU/mL (0.358-3.74) Urine Opiates Screen Neg (NEG) Urine Methadone Screen Neg (NEG) Urine Barbiturates Neg (NEG) Urine Phencyclidine Screen Neg (NEG) Urine Amphetamine/Methamphetamine Neg (NEG) Urine Benzodiazepines Screen Neg (NEG) Urine Cocaine Screen Neg (NEG) Urine Cannabinoids Screen Neg (NEG) Urine Ethyl Alcohol Neg (NEG) Test 02/02/17 21:25 Troponin I Quantitative < 0.017 ng/mL (0.000-0.055) Allergies: Coded Allergies: diphenhydramine (Verified Allergy, Severe, 01/04/16) SVT morphine (Verified Allergy, Severe, shortness of breath, 07/08/15) amoxicillin (Verified Allergy, Intermediate, hives, 06/30/15) hydrocodone (Verified Allergy, Intermediate, HIVES, tolerates Percocet, ) ibuprofen (Verified Allergy, Intermediate, HIVES,tolerates aspirin, ) Medications: Current Medications Medications (Trade) Dose Ordered Sig/Cassie Route PRN Reason Start Time Stop Time Status Last Admin Dose Admin Aspirin (Children'S Aspirin) 324 mg 1X ONCE PO 02/02/17 15:45 02/02/17 15:46 DC 02/02/17 15:48 Sodium Chloride 1,000 ml @ 1,000 mls/hr Q1H IV 02/02/17 15:37 02/02/17 16:36 DC 02/02/17 15:48 Sodium Chloride 1,000 ml @ 100 mls/hr Q10H IV 02/02/17 17:34 02/03/17 17:33 02/03/17 07:51 Acetaminophen (Tylenol) 500 mg PRN QID PRN PO pain 02/02/17 18:00 02/02/17 21:13 Atorvastatin Calcium (Lipitor) 20 mg QHS PO 02/02/17 21:00 02/02/17 21:04 Alprazolam (Xanax) 0.25 mg PRN QID PRN PO nerves 02/02/17 18:00 02/02/17 22:23 Multi-Ingredient Mouthwash/Gargle (Gi Cocktail Single Dose) 15 ml 1X ONCE SWSW 02/02/17 20:15 02/02/17 20:18 DC 02/02/17 21:05 Metoprolol Tartrate (Lopressor) 12.5 mg Q6HRS PO 02/03/17 00:00 02/02/17 23:49 Imaging: Imaging: CXR 02/02/17 IMPRESSION: No acute cardiopulmonary abnormality is detected. Head CT 02/02/17 IMPRESSION: No acute intracranial process is detected. Chest CTA 02/02/17 Impression: No evidence of pulmonary embolism or acute abnormality. PE: GEN: NAD HEENT: Atraumatic, PERRL LUNGS: CTAB HEART: RRR ABD: NABS, S/ND, periumbilical discomfort (mild) EXTREMITY: No edema SKIN: No rashes, no jaundice NEURO/PSYCH: A & O 3 A/P: A/P: Lightheadedness w/ ?h/o A Fib and PFO -per cardiology -on ASA GERD -reflux, heartburn/chest burning, radiates to back -no previous EGD, stopped PPI after 6 months due to sore throat, takes H2 rancho/Tums PRN -feels food moves slowly down esophagus, some early satiety and nausea w/ periumbilical pain Alternating diarrhea and constipation Normocytic anemia -Hgb at/above average CRC screen -no previous colonoscopy, average risk -- Agree w/ PPI. Probably would benefit from EGD at some point, probably as outpatient but will review this w/ Dr. Dougherty. Will add Miralax PRN. BEAU BLAKE Feb 03, 2017 10:40
[2017-02-03] MEDS ORDERED: POLYETHYLENE GLYCOL 3350 17 GM PACKET. PO PRN (10:45)
[2017-02-03 11:00] VITALS: BP 110/72
[2017-02-03] MEDS: PANTOPRAZOLE 40 MG TABLET.DR. PO SCH (11:16)
--- NOTE | 2017-02-03 11:31 | PDOC ---
PROGRESS NOTES Chief Complaint Chief Complaint Lightheadedness, palpitations GERD Atrial tachycardia GI discomfort Assessment/Plan History of Present Illness History of Present Illness Pt sitting up in bed and talkative and in good spirits. Vitals Vitals Vital Signs Date Time Temp Pulse Resp B/P (MAP) Pulse Ox O2 Delivery O2 Flow Rate FiO2 02/03/17 07:00 98.4 73 16 114/60 (78) 100 Room Air 98.4 Physical Exam General: Alert, Oriented X3, Cooperative, No acute distress Heart: Regular rate (Tachycardic), Normal S1, Normal S2, No murmurs Lungs: Clear, Other (No acute respiratory distress) Abdomen: Normal bowel sounds, Soft Extremities: No cyanosis, No edema Skin: No breakdown, No significant lesion Labs LABS Laboratory Tests Test 02/02/17 15:28 02/02/17 15:30 02/02/17 16:15 02/02/17 19:00 Bedside Urine HCG, Qualitative Hcg negative (Negative) White Blood Count 5.4 x10^3/uL (4.0-11.0) Red Blood Count 4.16 x10^6/uL (3.50-5.40) Hemoglobin 11.0 g/dL (12.0-15.5) Hematocrit 33.9 % (36.0-47.0) Mean Corpuscular Volume 81 fL (79-100) Mean Corpuscular Hemoglobin 27 pg (25-35) Mean Corpuscular Hemoglobin Concent 33 g/dL (31-37) Red Cell Distribution Width 21.5 % (11.5-14.5) Platelet Count 254 x10^3/uL (140-400) Neutrophils (%) (Auto) 58 % (31-73) Lymphocytes (%) (Auto) 33 % (24-48) Monocytes (%) (Auto) 8 % (0-9) Eosinophils (%) (Auto) 1 % (0-3) Basophils (%) (Auto) 1 % (0-3) Neutrophils # (Auto) 3.1 x10^3uL (1.8-7.7) Lymphocytes # (Auto) 1.8 x10^3/uL (1.0-4.8) Monocytes # (Auto) 0.4 x10^3/uL (0.0-1.1) Eosinophils # (Auto) 0.0 x10^3/uL (0.0-0.7) Basophils # (Auto) 0.0 x10^3/uL (0.0-0.2) Platelet Estimate Adequate (ADEQUATE) Polychromasia Slight Anisocytosis Mod D-Dimer (Stella) 0.85 ug/mlFEU (0.00-0.50) Sodium Level 136 mmol/L (136-145) Potassium Level 4.0 mmol/L (3.5-5.1) Chloride Level 99 mmol/L (98-107) Carbon Dioxide Level 27 mmol/L (21-32) Anion Gap 10 (6-14) Blood Urea Nitrogen 10 mg/dL (7-20) Creatinine 1.0 mg/dL (0.6-1.0) Estimated GFR (Cockcroft-Gault) 76.3 Glucose Level 112 mg/dL (70-99) Calcium Level 9.7 mg/dL (8.5-10.1) Magnesium Level 2.2 mg/dL (1.8-2.4) Total Bilirubin 0.2 mg/dL (0.2-1.0) Direct Bilirubin < 0.1 mg/dL (0.0-0.2) Aspartate Amino Transf (AST/SGOT) 18 U/L (15-37) Alanine Aminotransferase (ALT/SGPT) 14 U/L (14-59) Alkaline Phosphatase 47 U/L (46-116) Creatine Kinase 44 U/L (26-192) Creatine Kinase MB (Mass) < 0.5 ng/mL (0.0-3.6) Creatine Kinase MB Relative Index 1.1 % (0-4) Troponin I Quantitative < 0.017 ng/mL (0.000-0.055) < 0.017 ng/mL (0.000-0.055) KO-Vji-Y-Type Natriuretic Peptide 17 pg/mL (0-124) Total Protein 8.0 g/dL (6.4-8.2) Albumin 4.2 g/dL (3.4-5.0) Triglycerides Level 48 mg/dL (0-150) Cholesterol Level 187 mg/dL (0-200) LDL Cholesterol, Calculated 110 mg/dL (0-100) VLDL Cholesterol, Calculated 10 mg/dL (0-40) Non-HDL Cholesterol Calculated 120 mg/dL (0-129) HDL Cholesterol 67 mg/dL (40-60) Cholesterol/HDL Ratio 2.8 Thyroid Stimulating Hormone (TSH) 0.943 uIU/mL (0.358-3.74) Urine Opiates Screen Neg (NEG) Urine Methadone Screen Neg (NEG) Urine Barbiturates Neg (NEG) Urine Phencyclidine Screen Neg (NEG) Urine Amphetamine/Methamphetamine Neg (NEG) Urine Benzodiazepines Screen Neg (NEG) Urine Cocaine Screen Neg (NEG) Urine Cannabinoids Screen Neg (NEG) Urine Ethyl Alcohol Neg (NEG) Test 02/02/17 21:25 Troponin I Quantitative < 0.017 ng/mL (0.000-0.055) Review of Systems Review of Systems c/o anxiety c/o fatigue Assessment and Plan Assessmemt and Plan CC: lightheadedness, palpitations 1. GI discomfort: possible endoscopy tomorrow 2. Tachycardia: continue to monitor 4. GERD: continue PPI 5. Anxiety: continue xanax cardiac workup negative Problems: Comment Review of Relevant I have reviewed the following items janet (where applicable) has been applied. Labs Laboratory Tests Test 02/02/17 15:28 02/02/17 15:30 02/02/17 16:15 02/02/17 19:00 Bedside Urine HCG, Qualitative Hcg negative (Negative) White Blood Count 5.4 x10^3/uL (4.0-11.0) Red Blood Count 4.16 x10^6/uL (3.50-5.40) Hemoglobin 11.0 g/dL (12.0-15.5) Hematocrit 33.9 % (36.0-47.0) Mean Corpuscular Volume 81 fL (79-100) Mean Corpuscular Hemoglobin 27 pg (25-35) Mean Corpuscular Hemoglobin Concent 33 g/dL (31-37) Red Cell Distribution Width 21.5 % (11.5-14.5) Platelet Count 254 x10^3/uL (140-400) Neutrophils (%) (Auto) 58 % (31-73) Lymphocytes (%) (Auto) 33 % (24-48) Monocytes (%) (Auto) 8 % (0-9) Eosinophils (%) (Auto) 1 % (0-3) Basophils (%) (Auto) 1 % (0-3) Neutrophils # (Auto) 3.1 x10^3uL (1.8-7.7) Lymphocytes # (Auto) 1.8 x10^3/uL (1.0-4.8) Monocytes # (Auto) 0.4 x10^3/uL (0.0-1.1) Eosinophils # (Auto) 0.0 x10^3/uL (0.0-0.7) Basophils # (Auto) 0.0 x10^3/uL (0.0-0.2) Platelet Estimate Adequate (ADEQUATE) Polychromasia Slight Anisocytosis Mod D-Dimer (Stella) 0.85 ug/mlFEU (0.00-0.50) Sodium Level 136 mmol/L (136-145) Potassium Level 4.0 mmol/L (3.5-5.1) Chloride Level 99 mmol/L (98-107) Carbon Dioxide Level 27 mmol/L (21-32) Anion Gap 10 (6-14) Blood Urea Nitrogen 10 mg/dL (7-20) Creatinine 1.0 mg/dL (0.6-1.0) Estimated GFR (Cockcroft-Gault) 76.3 Glucose Level 112 mg/dL (70-99) Calcium Level 9.7 mg/dL (8.5-10.1) Magnesium Level 2.2 mg/dL (1.8-2.4) Total Bilirubin 0.2 mg/dL (0.2-1.0) Direct Bilirubin < 0.1 mg/dL (0.0-0.2) Aspartate Amino Transf (AST/SGOT) 18 U/L (15-37) Alanine Aminotransferase (ALT/SGPT) 14 U/L (14-59) Alkaline Phosphatase 47 U/L (46-116) Creatine Kinase 44 U/L (26-192) Creatine Kinase MB (Mass) < 0.5 ng/mL (0.0-3.6) Creatine Kinase MB Relative Index 1.1 % (0-4) Troponin I Quantitative < 0.017 ng/mL (0.000-0.055) < 0.017 ng/mL (0.000-0.055) RT-Ymj-L-Type Natriuretic Peptide 17 pg/mL (0-124) Total Protein 8.0 g/dL (6.4-8.2) Albumin 4.2 g/dL (3.4-5.0) Triglycerides Level 48 mg/dL (0-150) Cholesterol Level 187 mg/dL (0-200) LDL Cholesterol, Calculated 110 mg/dL (0-100) VLDL Cholesterol, Calculated 10 mg/dL (0-40) Non-HDL Cholesterol Calculated 120 mg/dL (0-129) HDL Cholesterol 67 mg/dL (40-60) Cholesterol/HDL Ratio 2.8 Thyroid Stimulating Hormone (TSH) 0.943 uIU/mL (0.358-3.74) Urine Opiates Screen Neg (NEG) Urine Methadone Screen Neg (NEG) Urine Barbiturates Neg (NEG) Urine Phencyclidine Screen Neg (NEG) Urine Amphetamine/Methamphetamine Neg (NEG) Urine Benzodiazepines Screen Neg (NEG) Urine Cocaine Screen Neg (NEG) Urine Cannabinoids Screen Neg (NEG) Urine Ethyl Alcohol Neg (NEG) Test 02/02/17 21:25 Troponin I Quantitative < 0.017 ng/mL (0.000-0.055) Laboratory Tests Test 02/02/17 15:28 02/02/17 15:30 02/02/17 16:15 02/02/17 19:00 Bedside Urine HCG, Qualitative Hcg negative (Negative) White Blood Count 5.4 x10^3/uL (4.0-11.0) Red Blood Count 4.16 x10^6/uL (3.50-5.40) Hemoglobin 11.0 g/dL (12.0-15.5) Hematocrit 33.9 % (36.0-47.0) Mean Corpuscular Volume 81 fL (79-100) Mean Corpuscular Hemoglobin 27 pg (25-35) Mean Corpuscular Hemoglobin Concent 33 g/dL (31-37) Red Cell Distribution Width 21.5 % (11.5-14.5) Platelet Count 254 x10^3/uL (140-400) Neutrophils (%) (Auto) 58 % (31-73) Lymphocytes (%) (Auto) 33 % (24-48) Monocytes (%) (Auto) 8 % (0-9) Eosinophils (%) (Auto) 1 % (0-3) Basophils (%) (Auto) 1 % (0-3) Neutrophils # (Auto) 3.1 x10^3uL (1.8-7.7) Lymphocytes # (Auto) 1.8 x10^3/uL (1.0-4.8) Monocytes # (Auto) 0.4 x10^3/uL (0.0-1.1) Eosinophils # (Auto) 0.0 x10^3/uL (0.0-0.7) Basophils # (Auto) 0.0 x10^3/uL (0.0-0.2) Platelet Estimate Adequate (ADEQUATE) Polychromasia Slight Anisocytosis Mod D-Dimer (Stella) 0.85 ug/mlFEU (0.00-0.50) Sodium Level 136 mmol/L (136-145) Potassium Level 4.0 mmol/L (3.5-5.1) Chloride Level 99 mmol/L (98-107) Carbon Dioxide Level 27 mmol/L (21-32) Anion Gap 10 (6-14) Blood Urea Nitrogen 10 mg/dL (7-20) Creatinine 1.0 mg/dL (0.6-1.0) Estimated GFR (Cockcroft-Gault) 76.3 Glucose Level 112 mg/dL (70-99) Calcium Level 9.7 mg/dL (8.5-10.1) Magnesium Level 2.2 mg/dL (1.8-2.4) Total Bilirubin 0.2 mg/dL (0.2-1.0) Direct Bilirubin < 0.1 mg/dL (0.0-0.2) Aspartate Amino Transf (AST/SGOT) 18 U/L (15-37) Alanine Aminotransferase (ALT/SGPT) 14 U/L (14-59) Alkaline Phosphatase 47 U/L (46-116) Creatine Kinase 44 U/L (26-192) Creatine Kinase MB (Mass) < 0.5 ng/mL (0.0-3.6) Creatine Kinase MB Relative Index 1.1 % (0-4) Troponin I Quantitative < 0.017 ng/mL (0.000-0.055) < 0.017 ng/mL (0.000-0.055) MN-Gux-A-Type Natriuretic Peptide 17 pg/mL (0-124) Total Protein 8.0 g/dL (6.4-8.2) Albumin 4.2 g/dL (3.4-5.0) Triglycerides Level 48 mg/dL (0-150) Cholesterol Level 187 mg/dL (0-200) LDL Cholesterol, Calculated 110 mg/dL (0-100) VLDL Cholesterol, Calculated 10 mg/dL (0-40) Non-HDL Cholesterol Calculated 120 mg/dL (0-129) HDL Cholesterol 67 mg/dL (40-60) Cholesterol/HDL Ratio 2.8 Thyroid Stimulating Hormone (TSH) 0.943 uIU/mL (0.358-3.74) Urine Opiates Screen Neg (NEG) Urine Methadone Screen Neg (NEG) Urine Barbiturates Neg (NEG) Urine Phencyclidine Screen Neg (NEG) Urine Amphetamine/Methamphetamine Neg (NEG) Urine Benzodiazepines Screen Neg (NEG) Urine Cocaine Screen Neg (NEG) Urine Cannabinoids Screen Neg (NEG) Urine Ethyl Alcohol Neg (NEG) Test 02/02/17 21:25 Troponin I Quantitative < 0.017 ng/mL (0.000-0.055) Medications Current Medications Aspirin (Children'S Aspirin) 324 mg 1X ONCE PO Last administered on 02/02/17 15:48; Start 02/02/17 at 15:45; Stop 02/02/17 at 15:46; Status DC Sodium Chloride 1,000 ml @ 1,000 mls/hr Q1H IV Last administered on 02/02/17 15:48; Start 02/02/17 at 15:37; Stop 02/02/17 at 16:36; Status DC Iohexol (Omnipaque 300 Mg/ml) 75 ml 1X ONCE IV ; Start 02/02/17 at 17:45; Stop 02/02/17 at 17:46; Status DC Ondansetron HCl (Zofran) 4 mg 1X ONCE IV ; Start 02/02/17 at 17:45; Stop at 17:46; Status DC Ondansetron HCl (Zofran) 4 mg PRN Q8HRS PRN IV NAUSEA/VOMITING; Start 02/02/17 at 17:45; Stop 02/02/17 at 17:55; Status DC Sodium Chloride 1,000 ml @ 100 mls/hr Q10H IV Last administered on 02/03/17 07:51; Start 02/02/17 at 17:34; Stop 02/03/17 at 17:33 Info (Do NOT chart on this entry -- for MONITORING) 1 each PRN DAILY PRN MC SEE COMMENTS; Start 02/02/17 at 17:45; Stop 02/04/17 at 17:44 Ondansetron HCl (Zofran) 4 mg PRN Q6HRS PRN IV NAUSEA/VOMITING; Start 02/02/17 at 18:00; Stop 02/03/17 at 17:59 Acetaminophen (Tylenol) 500 mg PRN QID PRN PO pain Last administered on 21:13; Start 02/02/17 at 18:00 Tramadol HCl (Ultram) 50 mg PRN QID PRN PO pain; Start 02/02/17 at 18:00 Aspirin (Children'S Aspirin) 81 mg DAILY PO ; Start 02/03/17 at 09:00 Atorvastatin Calcium (Lipitor) 20 mg QHS PO Last administered on 02/02/17 21: 04; Start 02/02/17 at 21:00 Fluticasone Propionate (Flonase) 2 spray DAILY NS ; Start 02/03/17 at 09:00 Diphenhydramine HCl (Benadryl) 25 mg QHS PRN PO sleep; Start 02/02/17 at 18:00 ; Stop 02/02/17 at 18:28; Status DC Fentanyl Citrate (Fentanyl 2ml Vial) 25 mcg PRN Q2HR PRN IV pain; Start at 18:00 Alprazolam (Xanax) 0.25 mg PRN QID PRN PO nerves Last administered on 22:23; Start 02/02/17 at 18:00 Multi-Ingredient Mouthwash/Gargle (Gi Cocktail Single Dose) 15 ml PRN 1X PRN SWSW CHEST PAIN; Start 02/02/17 at 20:15; Stop 02/03/17 at 21:00 Multi-Ingredient Mouthwash/Gargle (Gi Cocktail Single Dose) 15 ml 1X ONCE SWSW Last administered on 02/02/17 21:05; Start 02/02/17 at 20:15; Stop 02/02/17 at 20:18; Status DC Calcium Carbonate/ Glycine (Tums) 500 mg PRN AFTMEALHC PRN PO INDIGESTION; Start 02/02/17 at 20:15 Pantoprazole Sodium (Protonix) 40 mg DAILYAC PO Last administered on 02/03/17 11:16; Start 02/03/17 at 07:30 Al Hydroxide/Mg Hydroxide (Mylanta Plus Xs) 30 ml PRN Q2HR PRN PO HEARTBURN / GAS; Start 02/02/17 at 20:15 Metoprolol Tartrate (Lopressor) 12.5 mg Q6HRS PO Last administered on t 23:49; Start 02/03/17 at 00:00; Stop 02/03/17 at 11:02; Status DC Polyethylene Glycol (miraLAX PACKET) 17 gm PRN DAILY PRN PO CONSTIPATION; Start 02/03/17 at 10:45 Metoprolol Tartrate (Lopressor) 12.5 mg BID PO ; Start 02/03/17 at 21:00 Active Scripts Active Fluticasone Propionate Nasal Witt (Fluticasone Propionate) 16 Gm Witt.susp 2 Witt NS DAILY Atorvastatin Calcium 20 Mg Tablet 20 Mg PO QHS Reported Doxycycline Monohydrate 100 Mg Capsule 100 Mg PO BID 10 Days Escitalopram Oxalate 10 Mg Tablet 10 Mg PO DAILY Protonix (Pantoprazole Sodium) 40 Mg Tablet.dr 40 Mg PO DAILY Aspirin 81 Mg Tab.chew 1 Tab PO DAILY Vitals/I & O Vital Sign - Last 24 Hours 02/02/17 02/02/17 02/02/17 02/02/17 15:19 16:17 17:19 18:15 Temp 98.3 98.8 98.3 98.8 Pulse 83 88 90 87 Resp 20 20 22 20 B/P (MAP) 131/75 (93) 134/79 (97) 132/78 (96) 125/80 (95) Pulse Ox 97 97 100 99 O2 Delivery Room Air Room Air Room Air Room Air 02/02/17 02/02/17 02/02/17 02/02/17 18:15 19:34 20:52 23:29 Temp 98.8 98.9 98.8 98.9 Pulse 87 76 85 Resp 20 20 20 B/P (MAP) 125/80 (95) 91/50 (64) 99/62 (74) Pulse Ox 99 97 96 O2 Delivery Room Air Room Air Room Air Room Air 02/02/17 02/03/17 02/03/17 02/03/17 23:49 03:55 05:48 07:00 Temp 98.4 98.4 98.4 98.4 Pulse 78 56 57 73 Resp 16 B/P (MAP) 101/53 103/62 (76) 114/60 (78) Pulse Ox 98 100 O2 Delivery Room Air Room Air SANJUANITA VALENCIA III DO Feb 03, 2017 11:31
[2017-02-03] MEDS: FLUTICASONE 50MCG/NASAL SPRAY 16GM BOTTLE. NS SCH (12:37)
[2017-02-03] MEDS ORDERED: METOPROLOL TART IMMED RELEASE 25 MG TABLET. PO ONE (14:30)
[2017-02-03] MEDS: ALPRAZolam 0.25 MG TABLET PO PRN ×2 (14:36→14:37)
[2017-02-03 15:00] VITALS: BP 121/83
[2017-02-03 15:03] LABS: CALCIUM 9.2 mg/dL (8.5-10.1); CREATININE 0.9 mg/dL (0.6-1.0); GFR 86.2; POTASSIUM 3.6 mmol/L (3.5-5.1)
--- NOTE | 2017-02-03 15:36 | EKG ---
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
--- NOTE | 2017-02-03 16:29 | CARD ---
APPROVED REPORT EXAM: Two-dimensional and M-mode echocardiogram with Doppler and color Doppler. Other Information Quality : GoodHR: 80bpm Rhythm : NSR INDICATION Tachycardia, Dizziness, PFO hx. 2D DIMENSIONS RVDd2.9 (2.9-3.5cm)Left Atrium(2D)2.8 (1.6-4.0cm) IVSd0.7 (0.7-1.1cm)Aortic Root(2D)2.7 (2.0-3.7cm) LVDd4.7 (3.9-5.9cm)LVOT Diameter2.1 (1.8-2.4cm) PWd0.7 (0.7-1.1cm)LVDs3.0 (2.5-4.0cm) FS (%) 36.4 %SV69.0 ml LVEF(%)66.1 (>50%) Aortic Valve AoV Peak Doug.124.1cm/sAoV VTI25.4cm AO Peak GR.6.2mmHgLVOT Peak Doug.111.5cm/s AO Mean GR.3mmHgAVA (VMAX)3.25cm2 Mitral Valve MV E Ddyglqqt71.7cm/sMV E Peak Gr.4mmHg MV DECEL [id number] A Gnolppyz15.2cm/s MV E Mean Gr.1mmHgE/A Ratio1.8 MV A [id number] Pulmonary Valve PV Peak Rixjrnsi003.3cm/s Tricuspid Valve TR P. [id number]/sTR Peak Gr.22mmHg Pulmonary Vein S1 Qjspkife47.1cm/sD2 Yhzirfay30.0cm/s PVa [id number] LEFT VENTRICLE The left ventricle is normal size. There is normal left ventricular wall thickness. The left ventricu lar systolic function is normal and the ejection fraction is within normal range. The Ejection Fracti on is 60-65%. There is normal LV segmental wall motion. The left ventricular diastolic function and f illing is normal for age. RIGHT VENTRICLE The right ventricle is normal size. There is normal right ventricular wall thickness. The right ventr icular systolic function is normal. ATRIA The left atrium size is normal. The right atrium size is normal. The interatrial septum is intact wit h no evidence for an atrial septal defect or patent foramen ovale as noted on 2-D or Doppler imaging. The atrial septum is aneurysmal. The PFO previously diagnosed with TRISTEN visualization could not be se en at this time. AORTIC VALVE The aortic valve is normal in structure and function. The aortic valve is trileaflet. Doppler and Col or Flow revealed no significant aortic regurgitation. There is no significant aortic valvular stenosi s. MITRAL VALVE The mitral valve is normal in structure and function. There is no evidence of mitral valve prolapse. There is no mitral valve stenosis. Doppler and Color Flow revealed no mitral valve regurgitation note d. TRICUSPID VALVE Doppler and Color Flow revealed trace tricuspid regurgitation. The pulmonary artery systolic pressure is estimated at 25 mmHg. PULMONIC VALVE The pulmonic valve is not well visualized but appears to open adequately. Doppler and Color Flow reve aled mild pulmonic valvular regurgitation. There is no pulmonic valvular stenosis by spectral Doppler . GREAT VESSELS The aortic root is normal in size. The ascending aorta is normal in size. The pulmonary artery is nor mal. The IVC is normal in size and collapses >50% with inspiration. PERICARDIAL EFFUSION There is no evidence of significant pericardial effusion. Critical Notification Critical Value: No <Conclusion> The left ventricle is normal size. The left ventricular systolic function is normal and the ejection fraction is within normal range. The Ejection Fraction is 60-65%. The interatrial septum is intact with no evidence for an atrial septal defect or patent foramen ovale as noted on 2-D or Doppler imaging. The atrial septum is aneurysmal. The PFO previously diagnosed with TRISTEN visualization could not be see n at this time. There is no significant aortic valvular stenosis. Doppler and Color Flow revealed no significant aortic regurgitation. Doppler and Color Flow revealed no mitral valve regurgitation noted. Doppler and Color Flow revealed trace tricuspid regurgitation. The pulmonary artery systolic pressure is estimated at 25 mmHg.
[2017-02-03 19:06] VITALS: BP 102/71
[2017-02-03 22:15] VITALS: BP 142/98
[2017-02-03] MEDS: ATORVASTATIN CALCIUM 20 MG TABLET PO SCH (22:17)
[2017-02-03] MEDS: MAG HYDROX/ALUMINUM HYD/SIMETH 30 ML ORAL.SUSP PO PRN (23:21)
[2017-02-04 03:59] VITALS: BP 124/80
[2017-02-04 05:03] LABS: BASO % 0 % (0-3); EOS % 1 % (0-3); HEMATOCRIT 29.8 % (36.0-47.0); HEMOGLOBIN 9.6 g/dL (12.0-15.5); LYMPH # 1.9 x10^3/uL (1.0-4.8); LYMPH % 40 % (24-48); MEAN CORPUSCULAR HEMOGLOBIN 27 pg (25-35); MEAN CORPUSCULAR HGB CONC 32 g/dL (31-37); MEAN CORPUSCULAR VOLUME 82 fL (79-100); MONO % 7 % (0-9); NEUT % 51 % (31-73); PLATELET COUNT 227 x10^3/uL (140-400); RED BLOOD COUNT 3.64 x10^6/uL (3.50-5.40); RED CELL DISTRIBUTION WIDTH 22.3 % (11.5-14.5); WHITE BLOOD COUNT 4.7 x10^3/uL (4.0-11.0)
[2017-02-04 05:39] LABS: CREATININE 0.9 mg/dL (0.6-1.0); GFR 86.2
[2017-02-04 07:25] VITALS: BP 116/77
[2017-02-04] MEDS ORDERED: ASPIRIN ENTERIC COATED 81 MG TABLET.DR. PO SCH (08:00)
[2017-02-04 10:32] VITALS: BP 117/81
--- NOTE | 2017-02-04 12:43 | PDOC3 ---
Discharge Summary Visit Information Date of Admission: Feb 02, 2017 Date of Discharge: Feb 04, 2017 Admitting Diagnosis Comment: 1. Palpitations, lightheadedness, 2. Recent dc paroxysmal atrial fib in [facility] (dcd jan 31, 2017) dcd on PO cardizem 3. CLaims intolerance to cardizem 4. GERD Final Diagnosis Problems Medical Problems: (1) Near syncope Status: Acute (2) PFO (patent foramen ovale) Status: Acute (3) Sinus tachycardia Status: Acute Brief Hospital Course Allergies Allergies Coded Allergies Type Severity Reaction Last Updated Verified diphenhydramine Allergy Severe 01/04/16 Yes morphine Allergy Severe shortness of breath 07/08/15 Yes amoxicillin Allergy Intermediate hives 06/30/15 Yes hydrocodone Allergy Intermediate HIVES, tolerates Percocet 01/14/16 Yes ibuprofen Allergy Intermediate HIVES,tolerates aspirin 01/14/16 Yes clindamycin Allergy Unknown 02/04/17 Yes Vital Signs Vital Signs Date Time Temp Pulse Resp B/P (MAP) Pulse Ox O2 Delivery O2 Flow Rate FiO2 02/04/17 10:32 98.2 80 18 117/81 (93) 95 Room Air 98.2 Lab Results Laboratory Tests Test 02/02/17 15:28 02/02/17 15:30 02/02/17 16:15 02/02/17 19:00 Bedside Urine HCG, Qualitative Hcg negative (Negative) White Blood Count 5.4 x10^3/uL (4.0-11.0) Red Blood Count 4.16 x10^6/uL (3.50-5.40) Hemoglobin 11.0 g/dL (12.0-15.5) Hematocrit 33.9 % (36.0-47.0) Mean Corpuscular Volume 81 fL (79-100) Mean Corpuscular Hemoglobin 27 pg (25-35) Mean Corpuscular Hemoglobin Concent 33 g/dL (31-37) Red Cell Distribution Width 21.5 % (11.5-14.5) Platelet Count 254 x10^3/uL (140-400) Neutrophils (%) (Auto) 58 % (31-73) Lymphocytes (%) (Auto) 33 % (24-48) Monocytes (%) (Auto) 8 % (0-9) Eosinophils (%) (Auto) 1 % (0-3) Basophils (%) (Auto) 1 % (0-3) Neutrophils # (Auto) 3.1 x10^3uL (1.8-7.7) Lymphocytes # (Auto) 1.8 x10^3/uL (1.0-4.8) Monocytes # (Auto) 0.4 x10^3/uL (0.0-1.1) Eosinophils # (Auto) 0.0 x10^3/uL (0.0-0.7) Basophils # (Auto) 0.0 x10^3/uL (0.0-0.2) Platelet Estimate Adequate (ADEQUATE) Polychromasia Slight Anisocytosis Mod D-Dimer (Stella) 0.85 ug/mlFEU (0.00-0.50) Sodium Level 136 mmol/L (136-145) Potassium Level 4.0 mmol/L (3.5-5.1) Chloride Level 99 mmol/L (98-107) Carbon Dioxide Level 27 mmol/L (21-32) Anion Gap 10 (6-14) Blood Urea Nitrogen 10 mg/dL (7-20) Creatinine 1.0 mg/dL (0.6-1.0) Estimated GFR (Cockcroft-Gault) 76.3 Glucose Level 112 mg/dL (70-99) Calcium Level 9.7 mg/dL (8.5-10.1) Magnesium Level 2.2 mg/dL (1.8-2.4) Total Bilirubin 0.2 mg/dL (0.2-1.0) Direct Bilirubin < 0.1 mg/dL (0.0-0.2) Aspartate Amino Transf (AST/SGOT) 18 U/L (15-37) Alanine Aminotransferase (ALT/SGPT) 14 U/L (14-59) Alkaline Phosphatase 47 U/L (46-116) Creatine Kinase 44 U/L (26-192) Creatine Kinase MB (Mass) < 0.5 ng/mL (0.0-3.6) Creatine Kinase MB Relative Index 1.1 % (0-4) Troponin I Quantitative < 0.017 ng/mL (0.000-0.055) < 0.017 ng/mL (0.000-0.055) AA-Rnk-F-Type Natriuretic Peptide 17 pg/mL (0-124) Total Protein 8.0 g/dL (6.4-8.2) Albumin 4.2 g/dL (3.4-5.0) Triglycerides Level 48 mg/dL (0-150) Cholesterol Level 187 mg/dL (0-200) LDL Cholesterol, Calculated 110 mg/dL (0-100) VLDL Cholesterol, Calculated 10 mg/dL (0-40) Non-HDL Cholesterol Calculated 120 mg/dL (0-129) HDL Cholesterol 67 mg/dL (40-60) Cholesterol/HDL Ratio 2.8 Thyroid Stimulating Hormone (TSH) 0.943 uIU/mL (0.358-3.74) Urine Opiates Screen Neg (NEG) Urine Methadone Screen Neg (NEG) Urine Barbiturates Neg (NEG) Urine Phencyclidine Screen Neg (NEG) Urine Amphetamine/Methamphetamine Neg (NEG) Urine Benzodiazepines Screen Neg (NEG) Urine Cocaine Screen Neg (NEG) Urine Cannabinoids Screen Neg (NEG) Urine Ethyl Alcohol Neg (NEG) Test 02/02/17 21:25 02/03/17 14:30 02/04/17 04:30 02/04/17 04:35 Troponin I Quantitative < 0.017 ng/mL (0.000-0.055) Sodium Level 137 mmol/L (136-145) 139 mmol/L (136-145) Potassium Level 3.6 mmol/L (3.5-5.1) 4.0 mmol/L (3.5-5.1) Chloride Level 102 mmol/L (98-107) 105 mmol/L (98-107) Carbon Dioxide Level 26 mmol/L (21-32) 27 mmol/L (21-32) Anion Gap 9 (6-14) 7 (6-14) Blood Urea Nitrogen 6 mg/dL (7-20) 7 mg/dL (7-20) Creatinine 0.9 mg/dL (0.6-1.0) 0.9 mg/dL (0.6-1.0) Estimated GFR (Cockcroft-Gault) 86.2 86.2 Glucose Level 100 mg/dL (70-99) 88 mg/dL (70-99) Calcium Level 9.2 mg/dL (8.5-10.1) 9.0 mg/dL (8.5-10.1) Magnesium Level 2.2 mg/dL (1.8-2.4) White Blood Count 4.7 x10^3/uL (4.0-11.0) Red Blood Count 3.64 x10^6/uL (3.50-5.40) Hemoglobin 9.6 g/dL (12.0-15.5) Hematocrit 29.8 % (36.0-47.0) Mean Corpuscular Volume 82 fL (79-100) Mean Corpuscular Hemoglobin 27 pg (25-35) Mean Corpuscular Hemoglobin Concent 32 g/dL (31-37) Red Cell Distribution Width 22.3 % (11.5-14.5) Platelet Count 227 x10^3/uL (140-400) Neutrophils (%) (Auto) 51 % (31-73) Lymphocytes (%) (Auto) 40 % (24-48) Monocytes (%) (Auto) 7 % (0-9) Eosinophils (%) (Auto) 1 % (0-3) Basophils (%) (Auto) 0 % (0-3) Neutrophils # (Auto) 2.4 x10^3uL (1.8-7.7) Lymphocytes # (Auto) 1.9 x10^3/uL (1.0-4.8) Monocytes # (Auto) 0.3 x10^3/uL (0.0-1.1) Eosinophils # (Auto) 0.1 x10^3/uL (0.0-0.7) Basophils # (Auto) 0.0 x10^3/uL (0.0-0.2) Laboratory Tests Test 02/03/17 14:30 02/04/17 04:30 02/04/17 04:35 Sodium Level 137 mmol/L (136-145) 139 mmol/L (136-145) Potassium Level 3.6 mmol/L (3.5-5.1) 4.0 mmol/L (3.5-5.1) Chloride Level 102 mmol/L (98-107) 105 mmol/L (98-107) Carbon Dioxide Level 26 mmol/L (21-32) 27 mmol/L (21-32) Anion Gap 9 (6-14) 7 (6-14) Blood Urea Nitrogen 6 mg/dL (7-20) 7 mg/dL (7-20) Creatinine 0.9 mg/dL (0.6-1.0) 0.9 mg/dL (0.6-1.0) Estimated GFR (Cockcroft-Gault) 86.2 86.2 Glucose Level 100 mg/dL (70-99) 88 mg/dL (70-99) Calcium Level 9.2 mg/dL (8.5-10.1) 9.0 mg/dL (8.5-10.1) Magnesium Level 2.2 mg/dL (1.8-2.4) White Blood Count 4.7 x10^3/uL (4.0-11.0) Red Blood Count 3.64 x10^6/uL (3.50-5.40) Hemoglobin 9.6 g/dL (12.0-15.5) Hematocrit 29.8 % (36.0-47.0) Mean Corpuscular Volume 82 fL (79-100) Mean Corpuscular Hemoglobin 27 pg (25-35) Mean Corpuscular Hemoglobin Concent 32 g/dL (31-37) Red Cell Distribution Width 22.3 % (11.5-14.5) Platelet Count 227 x10^3/uL (140-400) Neutrophils (%) (Auto) 51 % (31-73) Lymphocytes (%) (Auto) 40 % (24-48) Monocytes (%) (Auto) 7 % (0-9) Eosinophils (%) (Auto) 1 % (0-3) Basophils (%) (Auto) 0 % (0-3) Neutrophils # (Auto) 2.4 x10^3uL (1.8-7.7) Lymphocytes # (Auto) 1.9 x10^3/uL (1.0-4.8) Monocytes # (Auto) 0.3 x10^3/uL (0.0-1.1) Eosinophils # (Auto) 0.1 x10^3/uL (0.0-0.7) Basophils # (Auto) 0.0 x10^3/uL (0.0-0.2) Brief Hospital Course Ms. Redd is a 37 old AA female admitted for Palpitations with intermittent tachy, Recent dx [facility] A fib, paroxysmal - dcd on PO cardizem which she did not like the effects, HEnce shifted to PO BB here by C[facility], Lipitor 20 and ASA 81 also new meds. ALso some anxiety needed Xanax in house, I gave RX, Then severe GERD sxs, PPI not yet filled, given at GI consulted here, EGD later, If neg then home later with PPI. All rx given. Plan of care dw her and Rn Marnie Seen and examined Time 34 mins 5 new Rx: Bb bid, asa 81, lipitor 20, xanax prn and PPI Discharge Information Condition at Discharge: Improved, Stable Disposition/Orders: D/C to Home Scheduled Aspirin (Aspirin), 1 TAB PO DAILY, (Reported) Atorvastatin Calcium (Atorvastatin Calcium), 20 MG PO QHS Doxycycline Monohydrate (Doxycycline Monohydrate), 100 MG PO BID, (Reported) Escitalopram Oxalate (Escitalopram Oxalate), 10 MG PO DAILY, (Reported) Fluticasone Propionate (Fluticasone Propionate Nasal [place]), 2 SPRAY NS DAILY Pantoprazole Sodium (Protonix), 40 MG PO DAILY, (Reported) TOOTIE KNIGHT MD Feb 04, 2017 12:43
[2017-02-04] MEDS ORDERED: IV RINGERS,LACTATED 1000ML 1,000 ML IV ONE (13:45)
[2017-02-04] MEDS ORDERED: METO25TA4 PO (13:56)
[2017-02-04] MEDS ORDERED: ALPR0.25 PO (13:57)
[2017-02-04] MEDS ORDERED: PROPOFOL 0 ML IV ONE (14:03)
[2017-02-04] MEDS ORDERED: PROPOFOL 20 ML IV ONE (14:04)
--- NOTE | 2017-02-04 14:25 | PDOC4 ---
PROCEDURE Procedure EGD Indication: NCCP Meds: per anesthesia Findings: E--Irregular Zline at 40cm G--Normal D-Normal to second portion. cassie. well. IMP: less than grade I reflux; typical for patients with NCCP from reflux. REC: PPI daily at least for 6-8 weeks, chronically if repeats admissions for NCCP. Would not expect rapid response. OK to feed/dismiss at your discretion. LEANNE WADSWORTH MD Feb 04, 2017 14:25
[2017-02-04 15:10] VITALS: BP 123/75
[2017-02-04] MEDS: FLUTICASONE 50MCG/NASAL SPRAY 16GM BOTTLE. NS SCH (15:24)
[2017-02-04] MEDS: PANTOPRAZOLE 40 MG TABLET.DR. PO SCH (15:24)
[2017-02-04 15:27] VITALS: BP 123/75
[2017-02-04] MEDS: METOPROLOL TART IMMED RELEASE 25 MG TABLET. PO SCH (15:27)
[2017-02-04] MEDS: MAG HYDROX/ALUMINUM HYD/SIMETH 30 ML ORAL.SUSP PO PRN (15:28)
[2017-02-04] MEDS: ALPRAZolam 0.25 MG TABLET PO PRN (16:25)
--- NOTE | 2017-02-05 04:50 | ACF ---
Admission Forms Criteria ATRIAL FIBRILLATION Clinical Indications for Admission to Inpatient Care ([place]/check or initial the applicable condition/criteria) Admission is indicated for ANY ONE of the following(1)(2)(3)(4)(5)(6)(7)(8): [ ]I. Myocardial ischemia that persists despite outpatient and observation care treatment (13) [ ]II. Myocardial infarction [X]III. Hemodynamic instability [ ]IV. Heart failure (e.g., pulmonary edema) (14) [ ]V. Altered mental status that is severe or persistent complications secondary to comorbidities (eg, symptomatic heart failure) [ ]. Syncope [ ]VII. Patient has implantable cardioverter defibrillator that has fired more than once within past 24hror needs immediate adjustment of settings that cannot be done other than in inpatient setting. (15) [ ]VIII. Suspected accessory pathway (e.g., Tncxd-Gdbelzdla-Sxpko syndrome) on ECG [ ]IX. Medication toxicity (e.g., digitalis) causing arrhythmia(16) [ ]X. Underlying medical condition that necessitates inpatient care(e.g., thyrotoxicosis, pneumonia)(17) [ ]XI. Continuous ECG monitoring is required for condition causing arrhythmia (e.g., severe hyperkalemia, hypokalemia, acid-base disturbance)(18)(19)(20) [ ]XII. Initiation of antiarrhythmic drug therapy is needed in patient at high risk of adverse effects as indicated by ANY ONE of the following: [ ]a) Significant structural heart disease (e.g., reduced ejection fraction, congenital heart disease, valvular heart disease) [ ]b) Prolonged QT interval [ ]c) Underlying sinus node or atrioventricular conduction disturbances [ ]d) Need for treatment with antiarrhythmic drugs that have significant proarrhythmic potential (e.g., dofetilide, sotalol, procainamide) [ ]e) Patient whose sinus rhythm has never been observed on ECG [ ]XIII. Persistent symptomatic tachycardia (rate > 100 bpm) despite outpatient and observation level of care (eg, rate cannot be sufficiently controlled [ ]XIV. Elective or urgent cardioversion that cannot be performed on outpatient basis or during observation care. [A] (Use also A Fib: Observation Care ) as appropriate.(21)(22)(23) Extended stay beyond goal length of stay may be needed for (1)(43)(44): [ ]a) Unstable comorbidities (eg, heart failure, COPD, renal insuffciency) [ ]b) Persistently uncontrolled atrial fibrillation or other arrhythmias (45) [ ]c) Acute thromboembolic event (e.g., stroke, limb ischemia) [ ]d) Need for inpatient attainment of full anticoagulation(28)(46)(47) The original [facility] content created by [facility] [employer] has been revised. The portions of the content which have been revised are identified through the use of italic text, and [facility] has neither reviewed nor approved the modified material. All other unmodified content is copyright [facility] [employer]. Please see references footnoted in the original [facility] [employer] edition 2014 Admission Criteria Met?: Yes CHIO SANTANA Feb 05, 2017 04:50
== END 2017-02-04 16:43 | disposition home or self-care (01) | DRG 309 ==
LOC: ER 15:07 → 2 SOUTH 17:30
PROVIDERS: ADMIT Internal Medicine; ATTEND Internal Medicine
PROC: 0DJ08ZZ Inspection of Upper Intestinal Tract, Via Natural or Artificial Opening Endoscopic (ICD-10-PCS; principal; 2017-02-04 14:00)
DX: I47.1 Supraventricular tachycardia (principal); I51.0 Cardiac septal defect, acquired; E78.5 Hyperlipidemia, unspecified; I48.0 Paroxysmal atrial fibrillation; K21.9 Gastro-esophageal reflux disease without esophagitis; F41.9 Anxiety disorder, unspecified; J02.9 Acute pharyngitis, unspecified; R12 Heartburn; J45.909 Unspecified asthma, uncomplicated; Z79.82 Long term (current) use of aspirin; Z86.73 Personal history of transient ischemic attack (TIA), and cerebral infarction without residual deficits; Z82.49 Family history of ischemic heart disease and other diseases of the circulatory system; Z98.51 Tubal ligation status; Z88.1 Allergy status to other antibiotic agents; Z88.8 Allergy status to other drugs, medicaments and biological substances
CPT/HCPCS: 36415; 70450; 71010; 71275; 80048; 80061; 80076; 80307; 81025; 82553; 83735; 83880; 84443; 84484; 85025; 85379; 93005; 93306; 96360; J2704; J7030; J7120; 99285-25; G0479

== ENCOUNTER 2017-02-05 13:42 | Observation (INO) | payer SELFPAY ==
[~2017-02-05] VITALS: Ht 170.2 cm; Wt 58.5 kg
[~2017-02-05 13:42] MED LIST changes: +DOXY100C14 PO; +ESCITALOPRAM OX10 MG PO; +METO25TA4 PO; +PANT40TA3 PO
--- NOTE | 2017-02-05 14:01 | PHYS DOC ---
Past Medical History Past Medical History: A-Fib, CVA Additional Past Medical Histor: PFO, CVA 2014 Past Surgical History: Tubal ligation Alcohol Use: None Drug Use: None Adult General Chief Complaint Chief Complaint: SHORTNESS OF BREATH HPI HPI Patient is a 37 year old female who presents with near- syncope. She states that she started feeling bad yesterday she got a hospital and was taken to [facility] where she was not evaluated because the wait was too long. She states this morning she felt like she was going to pass out she's had some mild shortness of breath and more than anything just weakness all over. She denies any fevers chills or vomiting. She states that ever since she was put on metoprolol she has been feeling well. His last night she got sweaty when she was sleeping and this is also new for her. Review of Systems Review of Systems Constitutional: Denies fever or chills [] Eyes: Denies change in visual acuity, redness, or eye pain [] HENT: Denies nasal congestion or sore throat [] Respiratory: Denies cough or shortness of breath [] Cardiovascular: No additional information not addressed in HPI [] GI: Denies abdominal pain, nausea, vomiting, bloody stools or diarrhea [] : Denies dysuria or hematuria [] Musculoskeletal: Denies back pain or joint pain [] Integument: Denies rash or skin lesions [] Neurologic: Denies headache, focal weakness or sensory changes [] Endocrine: Denies polyuria or polydipsia [] Allergies Allergies Allergies Coded Allergies Type Severity Reaction Last Updated Verified diphenhydramine Allergy Severe 02/04/17 Yes morphine Allergy Severe shortness of breath 02/04/17 Yes amoxicillin Allergy Intermediate hives 02/04/17 Yes hydrocodone Allergy Intermediate HIVES, tolerates Percocet 02/04/17 Yes ibuprofen Allergy Intermediate HIVES,tolerates aspirin 02/04/17 Yes clindamycin Allergy Unknown 02/04/17 Yes doxycycline Allergy Unknown 02/04/17 Yes Physical Exam Physical Exam Constitutional: Well developed, well nourished, no acute distress, non-toxic appearance. [] HENT: Normocephalic, atraumatic, bilateral external ears normal, oropharynx moist, no oral exudates, nose normal. [] Eyes: PERRLA, EOMI, conjunctiva normal, no discharge. [] Neck: Normal range of motion, no tenderness, supple, no stridor. [] Cardiovascular:Heart rate regular rhythm, no murmur [] Lungs & Thorax: Bilateral breath sounds clear to auscultation [] Abdomen: Bowel sounds normal, soft, no tenderness, no masses, no pulsatile masses. [] Skin: Warm, dry, no erythema, no rash. [] Back: No tenderness, no CVA tenderness. [] Extremities: No tenderness, no cyanosis, no clubbing, ROM intact, no edema. [] Neurologic: Alert and oriented X 3, normal motor function, normal sensory function, no focal deficits noted. [] Psychologic: Affect normal, judgement normal, mood normal. [] Current Patient Data Vital Signs Vital Signs Date Time Temp Pulse Resp B/P (MAP) Pulse Ox O2 Delivery O2 Flow Rate FiO2 02/05/17 13:59 99.1 87 20 133/68 (89) 98 Room Air 99.1 Lab Values Laboratory Tests Test 02/05/17 14:10 02/05/17 15:20 02/05/17 15:25 02/05/17 17:25 White Blood Count 5.4 x10^3/uL (4.0-11.0) Red Blood Count 4.13 x10^6/uL (3.50-5.40) Hemoglobin 11.0 g/dL (12.0-15.5) L Hematocrit 33.9 % (36.0-47.0) L Mean Corpuscular Volume 82 fL (79-100) Mean Corpuscular Hemoglobin 27 pg (25-35) Mean Corpuscular Hemoglobin Concent 32 g/dL (31-37) Red Cell Distribution Width 21.5 % (11.5-14.5) H Platelet Count 282 x10^3/uL (140-400) Neutrophils (%) (Auto) 68 % (31-73) Lymphocytes (%) (Auto) 23 % (24-48) L Monocytes (%) (Auto) 7 % (0-9) Eosinophils (%) (Auto) 1 % (0-3) Basophils (%) (Auto) 0 % (0-3) Neutrophils # (Auto) 3.7 x10^3uL (1.8-7.7) Lymphocytes # (Auto) 1.3 x10^3/uL (1.0-4.8) Monocytes # (Auto) 0.4 x10^3/uL (0.0-1.1) Eosinophils # (Auto) 0.1 x10^3/uL (0.0-0.7) Basophils # (Auto) 0.0 x10^3/uL (0.0-0.2) Platelet Estimate Adequate (ADEQUATE) Giant Platelets Occ Hypochromasia Slight Anisocytosis Mod Ovalocytes Few Prothrombin Time 13.5 SEC (11.7-14.0) Prothrombin Time INR 1.1 (0.8-1.1) D-Dimer (Stella) 1.73 ug/mlFEU (0.00-0.50) H Sodium Level 137 mmol/L (136-145) Potassium Level 3.8 mmol/L (3.5-5.1) Chloride Level 101 mmol/L (98-107) Carbon Dioxide Level 27 mmol/L (21-32) Anion Gap 9 (6-14) Blood Urea Nitrogen 9 mg/dL (7-20) Creatinine 1.1 mg/dL (0.6-1.0) H Estimated GFR (Cockcroft-Gault) 68.4 Glucose Level 91 mg/dL (70-99) Calcium Level 9.8 mg/dL (8.5-10.1) Total Bilirubin 0.6 mg/dL (0.2-1.0) Direct Bilirubin 0.1 mg/dL (0.0-0.2) Aspartate Amino Transferase (AST) 17 U/L (15-37) Alanine Aminotransferase (ALT) 18 U/L (14-59) Alkaline Phosphatase 53 U/L (46-116) Creatine Kinase 41 U/L (26-192) Creatine Kinase MB (Mass) < 0.5 ng/mL (0.0-3.6) Creatine Kinase MB Relative Index % (0-4) Troponin I Quantitative < 0.017 ng/mL (0.000-0.055) < 0.017 ng/mL (0.000-0.055) NO-Fio-T-Type Natriuretic Peptide 23 pg/mL (0-124) Total Protein 8.4 g/dL (6.4-8.2) H Albumin 4.1 g/dL (3.4-5.0) Lipase 185 U/L (73-393) Serum Test, Qualitative Negative (NEG) Urine Collection Type Unknown Urine Color Yellow Urine Clarity Clear Urine pH 7.5 Urine Specific Denio <=1.005 Urine Protein Negative mg/dL (NEG-TRACE) Urine Glucose (UA) Negative mg/dL (NEG) Urine Ketones (Stick) Negative mg/dL (NEG) Urine Blood Negative (NEG) Urine Nitrite Negative (NEG) Urine Bilirubin Negative (NEG) Urine Urobilinogen Dipstick 0.2 mg/dL (0.2 mg/dL) Urine Leukocyte Esterase Negative (NEG) Urine RBC 0 /HPF (0-2) Urine WBC 0 /HPF (0-4) Urine Squamous Epithelial Cells Few /LPF Urine Transitional Epithelial Cells Few /LPF Urine Bacteria 0 /HPF (0-FEW) POC Urine HCG, Qualitative Hcg negative (Negative) Laboratory Tests 02/05/17 14:10 Laboratory Tests 02/05/17 14:10 EKG EKG KG shows sinus rhythm [address] elevations, T-wave inversions noted in leads 3, normal axis, QTC 374 ms, as interpreted by me. Radiology/Procedures Radiology/Procedures [facility] [address] [place] [address] IMAGING REPORT Signed PATIENT: NARA SEGUNDO ACCOUNT: [id number] : 1980 LOCATION: ER AGE: 37 SEX: F EXAM STATUS: REG ER ORD. PHYSICIAN: VLAD WU MD REASON: soa PROCEDURE: PORTABLE CHEST 1V Portable chest, 02/05/2017: History: Shortness of breath, chest pressure Comparison is made to a study from 02/05/2017. The heart size and pulmonary vascularity are normal. A calcified granuloma is present in the right base. No acute infiltrates are seen. There is no evidence of pleural fluid. IMPRESSION: No acute cardiopulmonary abnormality is detected. DICTATED and SIGNED BY: JAXSON SMART MD DATE: 02/05/17 1520 CC: VLAD WU MD; ALEXUS ROBLES Impressions: Presyncope Palpitations Course & Med Decision Making Course & Med Decision Making Pertinent Labs and Imaging studies reviewed. (See chart for details) Patient was just discharged from hospital yesterday and 3 days ago she presented with exact same symptoms that she has today. Her d-dimer was elevated then and she did receive a CT Angio. D-dimer remains elevated. I do not believe she has a PE based on her physical exam findings, her heart rate, her O2 saturation and her history. She states she feels like she is going to pass out and she's been getting sweaty at night's when she is sleeping. She doesn't feel comfortable being discharged home. Patient is being admitted for additional workup. Dragon Disclaimer Dragon Disclaimer This electronic medical record was generated, in whole or in part, using a voice recognition dictation system. Departure Departure Impression: Primary Impression: Pre-syncope Disposition: ADMITTED INPATIENT Admitting Physician: Claudia Gomez Condition: STABLE Referrals: ALEXUS ROBLES (PCP) VLAD WU MD Feb 05, 2017 14:01
[2017-02-05 14:25] LABS: BASO % 0 % (0-3); EOS % 1 % (0-3); HEMATOCRIT 33.9 % (36.0-47.0); LYMPH # 1.3 x10^3/uL (1.0-4.8); LYMPH % 23 % (24-48); MEAN CORPUSCULAR HEMOGLOBIN 27 pg (25-35); MEAN CORPUSCULAR HGB CONC 32 g/dL (31-37); MEAN CORPUSCULAR VOLUME 82 fL (79-100); MONO % 7 % (0-9); NEUT % 68 % (31-73); PLATELET COUNT 282 x10^3/uL (140-400); RED BLOOD COUNT 4.13 x10^6/uL (3.50-5.40); RED CELL DISTRIBUTION WIDTH 21.5 % (11.5-14.5); WHITE BLOOD COUNT 5.4 x10^3/uL (4.0-11.0)
[2017-02-05 14:37] LABS: INR 1.1 (0.8-1.1); PROTHROMBIN TIME PATIENT 13.5 SEC (11.7-14.0)
[2017-02-05 14:42] LABS: CALCIUM 9.8 mg/dL (8.5-10.1); CREATININE 1.1 mg/dL (0.6-1.0); GFR 68.4; POTASSIUM 3.8 mmol/L (3.5-5.1)
[2017-02-05 14:43] LABS: NEG OBC SER NEG; POS OBC SER POS
[2017-02-05 14:48] LABS: ALBUMIN 4.1 g/dL (3.4-5.0); DIRECT BILIRUBIN 0.1 mg/dL (0.0-0.2); TOTAL BILIRUBIN 0.6 mg/dL (0.2-1.0); TOTAL PROTEIN 8.4 g/dL (6.4-8.2)
[2017-02-05 15:01] LABS: CREATINE KINASE 41 U/L (26-192)
[2017-02-05 15:02] LABS: CKMB MASS < 0.5 ng/mL (0.0-3.6)
--- NOTE | 2017-02-05 15:23 | RAD ---
Portable chest, 02/05/2017: History: Shortness of breath, chest pressure Comparison is made to a study from 02/05/2017. The heart size and pulmonary vascularity are normal. A calcified granuloma is present in the right base. No acute infiltrates are seen. There is no evidence of pleural fluid. IMPRESSION: No acute cardiopulmonary abnormality is detected.
[2017-02-05 15:27] LABS: ANISOCYTOSIS MOD; HYPOCHROMIA SLIGHT; OVALOCYTES FEW; PLT ESTIMATE ADEQUATE (ADEQUATE)
[2017-02-05 15:31] LABS: BILIRUBIN,URINE NEGATIVE (NEG); GLUCOSE,URINE NEGATIVE (NEG); NITRITE,URINE NEGATIVE (NEG); PH,URINE 7.5; PROTEIN,URINE NEGATIVE (NEG-TRACE); UROBILINOGEN,URINE 0.2 mg/dL (0.2 mg/dL)
[2017-02-05 15:38] LABS: BACTERIA,URINE 0 /HPF (0-FEW); RBC,URINE 0 /HPF (0-2); SQUAMOUS EPITHELIAL CELL,UR FEW /LPF; WBC,URINE 0 /HPF (0-4)
--- NOTE | 2017-02-05 15:38 | EKG ---
[facility] [address] [place] [address] Test Date: 2017-02-05 Test Time: 13:59:05 Pat Name: NARA SEGUNDO Department: Room: Gender: F Mountain Guide: TRISTIN : 1980 Requested By: VLAD WU Order Number: [id number] Reading MD: Fidencio Powell Measurements Intervals [place] Rate: 76 P: 52 IN: 146 QRS: 31 QRSD: 74 T: 10 QT: 330 QTc: 375 Interpretive Statements SINUS RHYTHM Electronically Signed On 02-10-2017 10:24:17 CDT by Fidencio Powell
[2017-02-05] MEDS ORDERED: ONDANSETRON PF 4 MG/2 ML VIAL. IV PRN (18:15)
[2017-02-05 19:20] VITALS: BP 114/71
[2017-02-05] MEDS ORDERED: ALPRAZolam 0.25 MG TABLET PO PRN (22:45)
[2017-02-05 23:00] VITALS: BP 104/66
[2017-02-05] MEDS ORDERED: ATORVASTATIN CALCIUM 20 MG TABLET PO SCH (23:00)
--- NOTE | 2017-02-05 23:19 | HP ---
ADMIT DATE: 02/05/2017 CHIEF COMPLAINT: Palpitations. HOSPITAL COURSE: The patient is a 37-year-old -[place] woman who had been recently diagnosed at with SVT and had been started on Cardizem. She had been seen here for a couple of days and just discharged yesterday for lightheadedness, dizziness and prompting GI workup. At that time, she was seen by Cardiology here and her Cardizem had been changed to metoprolol. The patient now presents for what she thinks persistent symptoms. She describes her heart beating in her left chest with some pain towards her left axilla. She denies any shortness of breath. She states that the pain actually gets worse when she takes her metoprolol. She is quite fatigued, which she also relates to the metoprolol. She has developed night sweats at night, at times drenching and wonders if this is also related to the medication. She denies any current lightheadedness or other symptoms. PAST MEDICAL HISTORY: SVT, GERD and anxiety. PAST SURGICAL HISTORY: Tubal ligation. FAMILY HISTORY: Positive for hypertension. SOCIAL HISTORY: No toxic habits. ALLERGIES: Multiple including AMOXICILLIN, CLINDAMYCIN, DIPHENHYDRAMINE, DOXYCYCLINE, HYDROCODONE, IBUPROFEN and MORPHINE. HOME MEDICATIONS: Reconciled with MAR. REVIEW OF SYSTEMS: Positive as per HPI. Rest of organ system review is negative. PHYSICAL EXAMINATION: VITAL SIGNS: Today show blood pressure of 114/70, heart rate of 77 and respiratory rate at 20. She is afebrile. GENERAL: Includes a slim, well-nourished 37-year-old -[place] woman, alert and oriented, in no acute distress, very pleasant. HEENT: Shows no scleral icterus. NECK: Supple. LUNGS: Clear to auscultation. HEART: Has regular rate and rhythm without any murmurs. ABDOMEN: Has positive bowel sounds. Soft and nontender. EXTREMITIES: Show no edema. LABORATORY DATA: CBC with a WBC of 5.4, hemoglobin 11.0 and platelets of 282. Chemistries with a BUN and creatinine of 9 and 1.1. Normal electrolytes, normal LFTs and normal protein. Toxicology reason 2 days ago was negative. IMAGING STUDIES: Chest x-ray in the Emergency Room did not reveal any acute cardiopulmonary abnormality. ASSESSMENT AND PLAN: The patient is a 37-year-old woman with supraventricular tachycardia, recently switched to metoprolol, who feels that her palpitations are persisting. Her heart rate actually is very well controlled in the 70-80 range on her current regimen. No abnormalities are noted on rhythm strip. We will obtain Cardiology consult in the morning. My strong suspicion is that this is anxiety more than anything else. She is requesting her Xanax. She has been started recently on Lexapro as well in hopes of transitioning. Discussed the medications with her in detail, both are available to her here. We will continue all her other medications from home as well. AILEEN ISAAC MD DR: UR/nts JOB#: [id number] / [id number] GYPSY Clay MD MTDD
[2017-02-06 06:53] LABS: BASO % 1 % (0-3); EOS % 2 % (0-3); HEMATOCRIT 32.2 % (36.0-47.0); HEMOGLOBIN 10.2 g/dL (12.0-15.5); LYMPH # 1.7 x10^3/uL (1.0-4.8); LYMPH % 40 % (24-48); MEAN CORPUSCULAR HEMOGLOBIN 26 pg (25-35); MEAN CORPUSCULAR HGB CONC 32 g/dL (31-37); MEAN CORPUSCULAR VOLUME 83 fL (79-100); MONO % 11 % (0-9); NEUT % 47 % (31-73); PLATELET COUNT 245 x10^3/uL (140-400); RED BLOOD COUNT 3.88 x10^6/uL (3.50-5.40); RED CELL DISTRIBUTION WIDTH 21.2 % (11.5-14.5); WHITE BLOOD COUNT 4.3 x10^3/uL (4.0-11.0)
[2017-02-06 07:00] VITALS: BP 116/67
[2017-02-06 07:14] LABS: CALCIUM 9.2 mg/dL (8.5-10.1); CREATININE 0.9 mg/dL (0.6-1.0); GFR 86.2; POTASSIUM 4.2 mmol/L (3.5-5.1)
[2017-02-06] MEDS ORDERED: PANTOPRAZOLE 40 MG TABLET.DR. PO SCH (07:30)
[2017-02-06] MEDS ORDERED: FLUTICASONE 50MCG/NASAL SPRAY 16GM BOTTLE. NS SCH (09:00)
[2017-02-06] MEDS ORDERED: CITALOPRAM 20 MG TABLET. PO SCH (09:00)
[2017-02-06] MEDS ORDERED: ASPIRIN CHEWABLE 81 MG TABLET. PO SCH (09:00)
[2017-02-06] MEDS ORDERED: METOPROLOL TART IMMED RELEASE 25 MG TABLET. PO SCH (09:00)
[2017-02-06 11:03] VITALS: BP 118/64
--- NOTE | 2017-02-06 11:07 | PDOC ---
OLGA ANDUJAR AIR COMMODORE 02/06/17 1107: CARDIO Progress Notes Date and Time Date of Service 02/06/2017 Time of Evaluation 1030 Subjective Subjective: No Chest Pain, No shortness of breath, No Palpitations, No Dizziness Vitals Vitals Vital Signs Date Time Temp Pulse Resp B/P (MAP) Pulse Ox O2 Delivery O2 Flow Rate FiO2 02/06/17 09:29 86 116/67 02/06/17 08:20 Room Air 02/06/17 07:00 97.9 18 100 97.9 Weight Weight [ ] Input and Output Intake and Output Intake and Output 02/07/17 07:00 Intake Total 300 ml Balance 300 ml Intake Oral 300 ml Laboratory Labs Laboratory Tests Test 02/05/17 14:10 02/05/17 15:20 02/05/17 15:25 02/05/17 17:25 White Blood Count 5.4 x10^3/uL (4.0-11.0) Red Blood Count 4.13 x10^6/uL (3.50-5.40) Hemoglobin 11.0 g/dL (12.0-15.5) Hematocrit 33.9 % (36.0-47.0) Mean Corpuscular Volume 82 fL (79-100) Mean Corpuscular Hemoglobin 27 pg (25-35) Mean Corpuscular Hemoglobin Concent 32 g/dL (31-37) Red Cell Distribution Width 21.5 % (11.5-14.5) Platelet Count 282 x10^3/uL (140-400) Neutrophils (%) (Auto) 68 % (31-73) Lymphocytes (%) (Auto) 23 % (24-48) Monocytes (%) (Auto) 7 % (0-9) Eosinophils (%) (Auto) 1 % (0-3) Basophils (%) (Auto) 0 % (0-3) Neutrophils # (Auto) 3.7 x10^3uL (1.8-7.7) Lymphocytes # (Auto) 1.3 x10^3/uL (1.0-4.8) Monocytes # (Auto) 0.4 x10^3/uL (0.0-1.1) Eosinophils # (Auto) 0.1 x10^3/uL (0.0-0.7) Basophils # (Auto) 0.0 x10^3/uL (0.0-0.2) Platelet Estimate Adequate (ADEQUATE) Giant Platelets Occ Hypochromasia Slight Anisocytosis Mod Ovalocytes Few Prothrombin Time 13.5 SEC (11.7-14.0) Prothromb Time International Ratio 1.1 (0.8-1.1) D-Dimer (Stella) 1.73 ug/mlFEU (0.00-0.50) Sodium Level 137 mmol/L (136-145) Potassium Level 3.8 mmol/L (3.5-5.1) Chloride Level 101 mmol/L (98-107) Carbon Dioxide Level 27 mmol/L (21-32) Anion Gap 9 (6-14) Blood Urea Nitrogen 9 mg/dL (7-20) Creatinine 1.1 mg/dL (0.6-1.0) Estimated GFR (Cockcroft-Gault) 68.4 Glucose Level 91 mg/dL (70-99) Calcium Level 9.8 mg/dL (8.5-10.1) Total Bilirubin 0.6 mg/dL (0.2-1.0) Direct Bilirubin 0.1 mg/dL (0.0-0.2) Aspartate Amino Transf (AST/SGOT) 17 U/L (15-37) Alanine Aminotransferase (ALT/SGPT) 18 U/L (14-59) Alkaline Phosphatase 53 U/L (46-116) Creatine Kinase 41 U/L (26-192) Creatine Kinase MB (Mass) < 0.5 ng/mL (0.0-3.6) Creatine Kinase MB Relative Index % (0-4) Troponin I Quantitative < 0.017 ng/mL (0.000-0.055) < 0.017 ng/mL (0.000-0.055) YZ-Aiq-N-Type Natriuretic Peptide 23 pg/mL (0-124) Total Protein 8.4 g/dL (6.4-8.2) Albumin 4.1 g/dL (3.4-5.0) Lipase 185 U/L (73-393) Serum Test, Qualitative Negative (NEG) Urine Collection Type Unknown Urine Color Yellow Urine Clarity Clear Urine pH 7.5 Urine Specific [place] <=1.005 Urine Protein Negative mg/dL (NEG-TRACE) Urine Glucose (UA) Negative mg/dL (NEG) Urine Ketones (Stick) Negative mg/dL (NEG) Urine Blood Negative (NEG) Urine Nitrite Negative (NEG) Urine Bilirubin Negative (NEG) Urine Urobilinogen Dipstick 0.2 mg/dL (0.2 mg/dL) Urine Leukocyte Esterase Negative (NEG) Urine RBC 0 /HPF (0-2) Urine WBC 0 /HPF (0-4) Urine Squamous Epithelial Cells Few /LPF Urine Transitional Epithelial Cells Few /LPF Urine Bacteria 0 /HPF (0-FEW) Bedside Urine HCG, Qualitative Hcg negative (Negative) Test 02/05/17 20:25 02/06/17 00:40 02/06/17 06:22 Troponin I Quantitative < 0.017 ng/mL (0.000-0.055) < 0.017 ng/mL (0.000-0.055) < 0.017 ng/mL (0.000-0.055) White Blood Count 4.3 x10^3/uL (4.0-11.0) Red Blood Count 3.88 x10^6/uL (3.50-5.40) Hemoglobin 10.2 g/dL (12.0-15.5) Hematocrit 32.2 % (36.0-47.0) Mean Corpuscular Volume 83 fL (79-100) Mean Corpuscular Hemoglobin 26 pg (25-35) Mean Corpuscular Hemoglobin Concent 32 g/dL (31-37) Red Cell Distribution Width 21.2 % (11.5-14.5) Platelet Count 245 x10^3/uL (140-400) Neutrophils (%) (Auto) 47 % (31-73) Lymphocytes (%) (Auto) 40 % (24-48) Monocytes (%) (Auto) 11 % (0-9) Eosinophils (%) (Auto) 2 % (0-3) Basophils (%) (Auto) 1 % (0-3) Neutrophils # (Auto) 2.0 x10^3uL (1.8-7.7) Lymphocytes # (Auto) 1.7 x10^3/uL (1.0-4.8) Monocytes # (Auto) 0.5 x10^3/uL (0.0-1.1) Eosinophils # (Auto) 0.1 x10^3/uL (0.0-0.7) Basophils # (Auto) 0.0 x10^3/uL (0.0-0.2) Sodium Level 137 mmol/L (136-145) Potassium Level 4.2 mmol/L (3.5-5.1) Chloride Level 102 mmol/L (98-107) Carbon Dioxide Level 27 mmol/L (21-32) Anion Gap 8 (6-14) Blood Urea Nitrogen 12 mg/dL (7-20) Creatinine 0.9 mg/dL (0.6-1.0) Estimated GFR (Cockcroft-Gault) 86.2 Glucose Level 85 mg/dL (70-99) Calcium Level 9.2 mg/dL (8.5-10.1) Physical Exam HEENT: Neck Supple W Full Motion Chest: Symmetric LUNGS: Clear to Auscultation Heart: S1S2, RRR (presently SR ) Abdomen: Soft N/T Extremities: No Calf Tenderness Neurology: alert, oriented, follow commands Assessment Assessment IMPRESSION Normal Myocardial Perfusion exercise stress study Conclusion 1. No evidence of stress induced EKG changes. 2. Normal myocardial perfusion at stress/rest. 3. Normal EF at stress at > 70% 4. Low risk study DATE: 03/05/16 1523 <Conclusion> TTE The left ventricle is normal size. The left ventricular systolic function is normal and the ejection fraction is within normal range. The Ejection Fraction is 60-65%. The interatrial septum is intact with no evidence for an atrial septal defect or patent foramen ovale as noted on 2-D or Doppler imaging. The atrial septum is aneurysmal. The PFO previously diagnosed with TRISTEN visualization could not be seen at this time. There is no significant aortic valvular stenosis. Doppler and Color Flow revealed no significant aortic regurgitation. Doppler and Color Flow revealed no mitral valve regurgitation noted. Doppler and Color Flow revealed trace tricuspid regurgitation. The pulmonary artery systolic pressure is estimated at 25 mmHg. DATE: 02/03/17 1628 Findings: CTA Pulmonary arteries:No evidence of pulmonary embolism. Thoracic aorta: No evidence of aneurysm or dissection. Great vessel origins: There is an aberrant right subclavian artery, with a retroesophageal course. Thyroid gland:Visualized aspect is unremarkable. Lymph nodes:No significant enlargement Heart: No significant pericadial effusion. Pleural spaces: No significant effusion Lungs: Dense calcified granuloma in the right lung. Trachea and central airways: Patent Bones: No destructive process Upper abdomen: Slices were obtained through the upper abdomen, but are of limited usefulness due to technique.No obvious acute findings. Impression: No evidence of pulmonary embolism or acute abnormality. DATE: 02/02/17 172 HPI: This is a pleasant 37 yo female admitted for complains of palpitations, dizziness and chest tightness. Pt was seen recently and was discharge 2016. She recently was given cardizem from another hospital but did not want to continue this due to weakness and was noted with low BP/HR. She was admitted here and was switched to metoprolol. Upon discharge pt did not start her metoprolol as an outpt till 1300 yesterday. Also she was started on SSRI but doubtful about it and remains to have uncontrolled anxiety. Due to her complains about weakness and blaming on meds she then did not take the metoprolol last night and was noted with sinus tachycardia overnight. Yesterday she was having intermittent palpitations then followed by some nonradiating chest tightness, mild SOA and dizziness. No nausea, vomiting nor diaphoresis. She initially went to [place] but later decided to come to [facility] because the wait was too long over there. 1. Palpitations/dizziness: appears inappropriate sinus tachycardia and accentuated by not taking her metoprolol with uncontrolled anxiety 2. Generalized anxiety disorder? per PCP 3. 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 GERD exacerbation: recent EGD with grade 1 reflux 5. Noncompliance: poor compliance so far in regards to BB and SSRI. 6. HLP: statin Recommendations 1. Continue with low dose ECASA. 2. Will likely need a loop recorder to further differentiate any episodic tachyarrhythmias. Will discuss and reevaluate as an outpt. 3. Long discussion in regards to treatment compliance and to give the medications chance to work 4. Encouraged home BP/HR monitoring and discuss symptoms and to call our office if any issues arise or HR not controlled. 5. Continue with metoprolol and PPI MARIJA BLOOM MD 02/06/17 5932: CARDIO Progress Notes Assessment Assessment Patient seen and examined. Agree with FOREIGN EXCHANGE TRADER's assessment and plan. Symptoms appear to be secondary to anxiety No arrhythmias recorded so for We will consider event monitor as an outpatient Thank you for your consultation OLGA ANDUJAR APRN Feb 06, 2017 11:07 MARIJA BLOOM MD Feb 06, 2017 16:42
[2017-02-06] MEDS ORDERED: IV NORMAL SALINE 500ML BAG 500 ML IV ONE (13:45)
[2017-02-06 14:47] VITALS: BP 120/65
--- NOTE | 2017-02-07 08:59 | DS ---
DATE OF DISCHARGE: 02/06/2017 CHIEF COMPLAINT: Palpitations. HOSPITAL COURSE: The patient is a 37-year-old -Iranian woman with previously diagnosed paroxysmal SVT who presented to the Emergency Room with palpitations. She had been discharged from the hospital within the past 2 days after having medications changed from calcium channel rancho to metoprolol for control of her heart rate. She stated that she still felt that she had palpitations. However, EKG actually did not show any persistent tachycardia, although slightly irregular heart rate in the 80s. Cardiology was once again consulted. No further interventions were undertaken. She was advised to follow up with Cardiology on an outpatient basis for Holter monitor testing. The perceived palpitations were thought to be potentially secondary to anxiety. She is on benzodiazepines t.i.d. for control of this. She has been started on SSRI by her primary care physician. Long discussions were held with the patient about benefit of good control of her anxiety and hopefully other symptoms as well. DISCHARGE DIAGNOSES: Paroxysmal SVT, anxiety. DISCHARGE DISPOSITION: To home. DISCHARGE CONDITION: Improved. DISCHARGE MEDICATIONS: Please refer to MAR. DISCHARGE INSTRUCTIONS: The patient will follow up with her PCP YEVGENIY and make an appointment with cardiology clinic. AILEEN ISAAC MD DR: UR/nts JOB#: [id number] / [id number] Farhat Bonilla
== END 2017-02-06 18:20 | disposition home or self-care (01) ==
LOC: ER 13:42 → 5 SOUTH 18:00
PROVIDERS: ADMIT Internal Medicine Hematology & Oncology; ATTEND Internal Medicine Hematology & Oncology
DX: I47.1 Supraventricular tachycardia (principal); R55 Syncope and collapse; R53.83 Other fatigue; K21.9 Gastro-esophageal reflux disease without esophagitis; F41.9 Anxiety disorder, unspecified; Z82.49 Family history of ischemic heart disease and other diseases of the circulatory system; Z86.73 Personal history of transient ischemic attack (TIA), and cerebral infarction without residual deficits
CPT/HCPCS: 36415; 71010; 80048; 80076; 81001; 81025; 82553; 83690; 83880; 84484; 84703; 85025; 85379; 85610; 93005; 96360; 99285; G0378; J7040; G0379

== ENCOUNTER 2017-03-10 12:49 | Emergency (ER) | payer BC ==
[~2017-03-10] VITALS: Ht 170.2 cm; Wt 58.5 kg
[2017-03-10] MEDS ORDERED: IV NORMAL SALINE 1000ML BAG 1,000 ML IV SCH (13:37)
--- NOTE | 2017-03-10 13:40 | EKG ---
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
[2017-03-10] MEDS ORDERED: ONDANSETRON PF 4 MG/2 ML VIAL. IV ONE (13:45)
[2017-03-10] MEDS ORDERED: ASPIRIN CHEWABLE 81 MG TABLET. PO ONE (13:45)
[2017-03-10] MEDS ORDERED: 0.9 % SODIUM CHLORIDE 10 ML DISP.SYRIN. IV PRN (13:45)
--- NOTE | 2017-03-10 13:48 | PHYS DOC ---
Past Medical History Past Medical History: A-Fib, CVA Additional Past Medical Histor: PFO, CVA 2015; SVT Past Surgical History: Tubal ligation Alcohol Use: None Drug Use: None Adult General Chief Complaint Chief Complaint: CHEST PAIN HPI HPI She is a pleasant 37-year-old -[place] female with history of PFO since episodes of SVT H or fibrillation and a prior stroke. She has a significant family history of stroke in her father who had a stroke prior to the age of 55 she herself has had one as well. She's on a daily aspirin of 81 mg and she began experiencing mild dizziness that began earlier in the week and has progressively gotten worse with now palpitations without chest pain. She says the dizziness described fullness in her ears without hearing loss or tinnitus and as clouded tunnel vision that occurs with standing from a kneeling laying down or sitting position. She denies any headache or other focal neurologic deficits. & Weakness. She says the palpitations actually gotten progressively worse with mild chest pressure over the last several days. She said there is also been heaviness and pain in her left arm in addition to this. She denies any fevers but has had some chills and mild diaphoresis with symptoms and a nonproductive cough. All joints without rash joint swelling or pain. Patient denies abdominal pain, nausea, vomiting or diarrhea. Denies any UTI symptoms trauma or travel outside the country. My syncope differential includes but not limited to: Neurally mediated vasovagal syncope, situational syncope, cardiac sinus syncope , orthostatic hypertension, medications, psychiatric interventions, neurologic syncope, cardiogenic syncopal B, to include organic heart disease congestive heart failure, cardiac dysrhythmia, seizure disorder, stroke or transient ischemic attack, bradycardia dysrhythmias, tachycardia dysrhythmias, PT, V. fib V. fib, cardiac abnormalities like first degree secondary third-degree AV blocks , prolonged QT, hypertrophic Gregg myopathy, severe pulmonic stenosis, pulmonary arterial hypertension, atrial myxomas, aortic stenosis, valvular failure, alcohol consumption, adrenal insufficiency, drug effects from things like antidepressants, antihypertensive agents like beta blockers, vasodilators including calcium channel blockers and nitrates, autonomic insufficiency. Review of Systems Review of Systems Constitutional: Denies fever has had some chills. Eyes: Denies change in visual acuity, redness, or eye pain [] HENT: Denies nasal congestion or sore throat [] Respiratory: He has had a nonproductive cough and mild shortness of breath or palpitations. Cardiovascular: No additional information not addressed in HPI [] GI: Denies abdominal pain, nausea, vomiting, bloody stools or diarrhea [] : Denies dysuria or hematuria [] Musculoskeletal: Denies back pain or joint pain describes myalgias in all extremities. Integument: Denies rash or skin lesions [] Neurologic: Denies headache, focal weakness or sensory changes [] Endocrine: Denies polyuria or polydipsia [] Current Medications Current Medications Current Medications Medications (Trade) Dose Ordered Sig/Cassie Start Time Stop Time Status Last Admin Dose Admin Aspirin (Children'S Aspirin) 324 mg 1X ONCE 03/10/17 13:45 03/10/17 13:46 DC 03/10/17 14:00 324 MG Info (Do NOT chart on this entry -- for MONITORING) 1 each PRN DAILY PRN 03/10/17 16:00 03/12/17 15:59 Iohexol (Omnipaque 300 Mg/ml) 75 ml 1X ONCE 03/10/17 16:00 03/10/17 16:01 DC 03/10/17 16:09 75 ML Ondansetron HCl (Zofran) 4 mg 1X ONCE 03/10/17 13:45 03/10/17 13:46 DC Sodium Chloride (Normal Saline Flush) 10 ml QSHIFT PRN 03/10/17 13:45 Allergies Allergies Allergies Coded Allergies Type Severity Reaction Last Updated Verified diphenhydramine Allergy Severe 02/04/17 Yes morphine Allergy Severe shortness of breath 02/04/17 Yes amoxicillin Allergy Intermediate hives 02/04/17 Yes clindamycin Allergy Intermediate 02/06/17 Yes doxycycline Allergy Intermediate 02/06/17 Yes hydrocodone Allergy Intermediate HIVES, tolerates Percocet 02/04/17 Yes ibuprofen Allergy Intermediate HIVES,tolerates aspirin 02/04/17 Yes Physical Exam Physical Exam This is vital sign reviewed and within the chart demonstrates hypertension. Constitutional: Well developed, well nourished, no acute distress, non-toxic appearance. [] HENT: Normocephalic, atraumatic, bilateral external ears normal, oropharynx moist, no oral exudates, nose normal. [] Eyes: PERRLA, EOMI, conjunctiva normal, no discharge. [] Neck: Normal range of motion, no tenderness, supple, no stridor. [] Cardiovascular:Heart rate regular rhythm, no murmurs, rubs or rubs noted she has no chest wall tenderness to palpation. Lungs & Thorax: Bilateral breath sounds clear to auscultation wheezes rhonchi rales or crackles. Abdomen: Bowel sounds normal, soft, no tenderness, no masses, no pulsatile masses. [] Skin: Warm, dry, no erythema, no rash. [] Back: No tenderness, no CVA tenderness. [] Extremities: No tenderness, no cyanosis, no clubbing, ROM intact, no edema. [] Neurologic: Alert and oriented X 3, normal motor function, normal sensory function, no focal deficits noted. [] Psychologic: Affect normal, judgement normal, mood normal. [] Current Patient Data Vital Signs Vital Signs Date Time Temp Pulse Resp B/P (MAP) Pulse Ox O2 Delivery O2 Flow Rate FiO2 03/10/17 13:03 97.9 81 18 140/83 (102) 100 Room Air 97.9 Lab Values Laboratory Tests Test 03/10/17 13:10 03/10/17 13:12 03/10/17 13:44 Urine Color Yellow Urine Clarity Clear Urine pH 7.0 Urine Specific [place] <=1.005 Urine Protein Negative mg/dL (NEG-TRACE) Urine Glucose (UA) Negative mg/dL (NEG) Urine Ketones (Stick) Negative mg/dL (NEG) Urine Blood Negative (NEG) Urine Nitrite Negative (NEG) Urine Bilirubin Negative (NEG) Urine Urobilinogen Dipstick 0.2 mg/dL (0.2 mg/dL) Urine Leukocyte Esterase Negative (NEG) Urine RBC 0 /HPF (0-2) Urine WBC 0 /HPF (0-4) Urine Squamous Epithelial Cells Occ /LPF Urine Bacteria 0 /HPF (0-FEW) Urine Mucus Slight /LPF Urine Opiates Screen Neg (NEG) Urine Methadone Screen Neg (NEG) Urine Barbiturates Neg (NEG) Urine Phencyclidine Screen Neg (NEG) Urine Amphetamine/Methamphetamine Neg (NEG) Urine Benzodiazepines Screen Neg (NEG) Urine Cocaine Screen Neg (NEG) Urine Cannabinoids Screen Neg (NEG) Urine Ethyl Alcohol Neg (NEG) White Blood Count 4.6 x10^3/uL (4.0-11.0) Red Blood Count 4.28 x10^6/uL (3.50-5.40) Hemoglobin 11.1 g/dL (12.0-15.5) L Hematocrit 35.3 % (36.0-47.0) L Mean Corpuscular Volume 83 fL (79-100) Mean Corpuscular Hemoglobin 26 pg (25-35) Mean Corpuscular Hemoglobin Concent 32 g/dL (31-37) Red Cell Distribution Width 21.4 % (11.5-14.5) H Platelet Count 385 x10^3/uL (140-400) Neutrophils (%) (Auto) 58 % (31-73) Lymphocytes (%) (Auto) 33 % (24-48) Monocytes (%) (Auto) 7 % (0-9) Eosinophils (%) (Auto) 1 % (0-3) Basophils (%) (Auto) 0 % (0-3) Neutrophils # (Auto) 2.7 x10^3uL (1.8-7.7) Lymphocytes # (Auto) 1.5 x10^3/uL (1.0-4.8) Monocytes # (Auto) 0.3 x10^3/uL (0.0-1.1) Eosinophils # (Auto) 0.0 x10^3/uL (0.0-0.7) Basophils # (Auto) 0.0 x10^3/uL (0.0-0.2) D-Dimer (Stella) 1.57 ug/mlFEU (0.00-0.50) H Sodium Level 139 mmol/L (136-145) Potassium Level 3.5 mmol/L (3.5-5.1) Chloride Level 103 mmol/L (98-107) Carbon Dioxide Level 25 mmol/L (21-32) Anion Gap 11 (6-14) Blood Urea Nitrogen 10 mg/dL (7-20) Creatinine 0.9 mg/dL (0.6-1.0) Estimated GFR (Cockcroft-Gault) 86.2 BUN/Creatinine Ratio 11 (6-20) Glucose Level 89 mg/dL (70-99) Calcium Level 9.9 mg/dL (8.5-10.1) Magnesium Level 2.0 mg/dL (1.8-2.4) Total Bilirubin 0.4 mg/dL (0.2-1.0) Aspartate Amino Transferase (AST) 16 U/L (15-37) Alanine Aminotransferase (ALT) 17 U/L (14-59) Alkaline Phosphatase 53 U/L (46-116) Creatine Kinase 42 U/L (26-192) Creatine Kinase MB (Mass) < 0.5 ng/mL (0.0-3.6) Creatine Kinase MB Relative Index 1.2 % (0-4) Troponin I Quantitative < 0.017 ng/mL (0.000-0.055) VO-Hed-H-Type Natriuretic Peptide 54 pg/mL (0-124) Total Protein 8.6 g/dL (6.4-8.2) H Albumin 4.3 g/dL (3.4-5.0) Albumin/Globulin Ratio 1.0 (1.0-1.7) Lipase 173 U/L (73-393) Thyroid Stimulating Hormone (TSH) 0.904 uIU/mL (0.358-3.74) POC Urine HCG, Qualitative Hcg negative (Negative) Laboratory Tests 03/10/17 13:12 Laboratory Tests 03/10/17 13:12 EKG EKG []KG timed 12:58 PM demonstrated to her rate of 82. The QRS normal sinus rhythm with T-wave inversions in the inferior leads patient is a 7 T-wave changes consistent with acute ischemia. NC interval was 147 which is normal, QRS width is 78 which is normal, QTc is 460 which is normal. No evidence of wall Parkinson 's White, long QT, or Brugada syndrome. EKG read by hi Radiology/Procedures Radiology/Procedures [] [facility] [address] [place], [place] [id number] IMAGING REPORT Signed PATIENT: NARA SEGUNDO ACCOUNT: [id number] : 1980 LOCATION: ER AGE: 37 SEX: F EXAM STATUS: REG ER ORD. PHYSICIAN: SEBAS MAURICIO MD REASON: PE protocol PROCEDURE: CT ANGIOGRAPHY CHEST Indication chest pain. Contrast imaging through the chest was performed. Examination was tailored for the detection of pulmonary embolus. 75 cc of Omnipaque 300 was administered intravenously. Note is made of a similar examination just over one month ago. MIP images were generated in the coronal and sagittal planes and reviewed. The study is negative for pulmonary embolus. The thoracic aorta is unremarkable. Aberrant right subclavian artery is noted. There is no significant hilar or mediastinal adenopathy. No acute parenchymal infiltrate is seen. There is no pleural fluid. Imaging through the upper abdomen is unremarkable. IMPRESSION: No acute finding seen in the chest. Negative study for pulmonary embolus PQRS Compliance Statement: One or more of the following individualized dose reduction techniques were utilized for this examination: 1. Automated exposure control 2. Adjustment of the mA and/or kV according to patient size 3. Use of iterative reconstruction technique DICTATED and SIGNED BY: GILLIAN BLACKWELL MD DATE: 03/10/17 1633 CC: SEBAS MAURICIO MD; ALEXUS ROBLES ~ [facility] [address] [place] [address] IMAGING REPORT Signed PATIENT: NARA SEGUNDO ACCOUNT: [id number] : 1980 LOCATION: ER AGE: 37 SEX: F EXAM STATUS: REG ER ORD. PHYSICIAN: SEBAS MAURICIO MD REASON: chest pain with palpitations, CHEST PRESSURE, SHORT OF AIR, DIZZY, X 1 DAY PROCEDURE: CHEST PA & LATERAL Indication: Chest pain and palpitations. Technique: Two-view chest radiograph was obtained. Comparison is from February 05, 2017. Findings: The lungs are clear. Calcified granuloma is noted on the right. The cardiopulmonary silhouette is within normal limits. There is no pleural effusion. The bony structures are intact. Leads overlie the patient. Impression: No acute thoracic findings. DICTATED and SIGNED BY: RIGO KEVIN MD DATE: 03/10/17 1439 CC: SEBAS MAURICIO MD; ALEXUS ROBLES Course & Med Decision Making Course & Med Decision Making Pertinent Labs and Imaging studies reviewed. (See chart for details) she presents with chest pain and dizziness that began bothering her for last week, Along with palpitations she does have a concerning history of atrial fibrillation SVT with a prior stroke secondary to PFO. Patient's palpitations and increasing dizziness or concerning for possible cardiac cause. Differential diagnosis for chest pain: Pericarditis, myocarditis, endocarditis, pneumothorax , pneumonia, aortic dissection, esophageal spasm, esophagitis, peptic ulcer disease, acute coronary syndrome, mediastinitis, Boerhaave syndrome, musculoskeletal chest wall pain, costochondritis, intercostal strain, rib fracture, pulmonary contusion, pneumonitis, pleural effusion, pericardial effusion, pericardial tamponode, and pleurisy. Considered upon arrival. Patient tells me that their symptoms given during CC are improved. We reviewed labs and radiology reports with patient and any family at bedside. Time is now 3 :20 PM she has negative troponin, negative CMP, mild anemia with an H&H of 10 at 30 chest x-ray, my concern is an elevated d-dimer although she has low risk for PE positive d-dimer requires further studies at this time. His history she scores a 0 based on presentation. History factors and troponin. This means that if she is found clear of PE on CT angios the chest she is low risk and she can go home and follow with cardiology as an outpatient. History: Highly suspicious 2 points moderately suspicious 1. slightly suspicious 0 point EKG: ST segment depression 2. nonspecific repolarization disturbance 1. normal 0 point Age: Greater than 65 2 points, 65-45 1., less than 45 years old 0 points Risk factors:> 3 risk factors 2 points, 1-2 risk factors one point, no risk factors 0 point Troponin: > 2 times normal 2 points, 1-2 times normal 1., normal limits 0 point Total score: Score % pts MACE/n MACE Policy 0-3 32% 1.9% 0.05% Discharge 4-6 51% 413/3136 13% 1.3% Observation Risk management 7-10 17% 518/1045 50% 2.8% Observation Treatment, CAG [] Impression CT scan angiogram of the chest reveals no pulmonary most. Patient's family and I discussed symptoms and reasonable follow-up with cardiology and her primary care doctor. There is no obvious signs of dysrhythmia today on EKG, there is no evidence of elevated troponin or cardiac damage at this point in time. Impression: palpitations, chest pain shortness of breath dizziness unclear etiology Disposition: Discharged home PCP follow-up cardiology evaluation. Dragon Disclaimer Dragon Disclaimer This electronic medical record was generated, in whole or in part, using a voice recognition dictation system. Departure Departure Impression: Primary Impression: Chest pain at rest Additional Impressions: PFO (patent foramen ovale) Palpitations Pre-syncope Disposition: 01 HOME, SELF-CARE Condition: IMPROVED Referrals: ALEXUS ROBLES (PCP) Patient Instructions: Anxiety and Panic Attacks, Chest Pain (Nonspecific), Near -Syncope, Palpitations Additional Instructions: My discharge plan Although you have low risk chest pain you May still have heart disease despite having an apparent negative workup today. I would advise that you follow-up with your primary care doctor this week to arrange follow-up with her insurance claim representative. The insurance claim representative will help stratify your risk for heart injury in the future. Follow up: In addition patient is asked to followup with their primary doctor, within a week for followup examination and to address patient's ongoing medical conditions. Because patient does not have a regular medical doctor, the [facility] Resource Sheet will be provided to establish care primary care. Patient is advised that in the Emergency Department primary complaints are addressed and only in light of known signs and symptoms. Patient should return immediately to the emergency department if new signs and symptoms develop or patient's condition worsens in any way. At time of discharge patient was in stable condition and had verbalized understanding of the discharge instructions. Scripts Acetaminophen (TYLENOL) 325 Mg Tablet 1-2 TAB PO QID, #60 TAB 2 Refills Prov: SEBAS MAURICIO MD 03/10/17 Lorazepam (ATIVAN) 1 Mg Tablet 1 MG PO BID for 5 Days, #10 TAB Prov: SEBAS MAURICIO MD 03/10/17 Problem Qualifiers SEBAS MAURICIO MD Mar 10, 2017 13:48
[2017-03-10 13:52] LABS: BASO % 0 % (0-3); EOS % 1 % (0-3); HEMATOCRIT 35.3 % (36.0-47.0); HEMOGLOBIN 11.1 g/dL (12.0-15.5); LYMPH # 1.5 x10^3/uL (1.0-4.8); LYMPH % 33 % (24-48); MEAN CORPUSCULAR HEMOGLOBIN 26 pg (25-35); MEAN CORPUSCULAR HGB CONC 32 g/dL (31-37); MEAN CORPUSCULAR VOLUME 83 fL (79-100); MONO % 7 % (0-9); NEUT % 58 % (31-73); PLATELET COUNT 385 x10^3/uL (140-400); RED BLOOD COUNT 4.28 x10^6/uL (3.50-5.40); RED CELL DISTRIBUTION WIDTH 21.4 % (11.5-14.5); WHITE BLOOD COUNT 4.6 x10^3/uL (4.0-11.0)
[2017-03-10 14:07] LABS: BARBITURATES NEG (NEG); BENZODIAZEPINES NEG (NEG); CANNABINOIDS NEG (NEG); COCAINE NEG (NEG); METHADONE NEG (NEG); OPIATES NEG (NEG); PHENCYCLIDINE NEG (NEG)
[2017-03-10 14:11] LABS: ALBUMIN 4.3 g/dL (3.4-5.0); CALCIUM 9.9 mg/dL (8.5-10.1); CREATININE 0.9 mg/dL (0.6-1.0); GFR 86.2; POTASSIUM 3.5 mmol/L (3.5-5.1); TOTAL BILIRUBIN 0.4 mg/dL (0.2-1.0); TOTAL PROTEIN 8.6 g/dL (6.4-8.2)
[2017-03-10 14:17] LABS: BILIRUBIN,URINE NEGATIVE (NEG); GLUCOSE,URINE NEGATIVE (NEG); NITRITE,URINE NEGATIVE (NEG); PROTEIN,URINE NEGATIVE (NEG-TRACE); UROBILINOGEN,URINE 0.2 mg/dL (0.2 mg/dL)
[2017-03-10 14:19] LABS: CREATINE KINASE 42 U/L (26-192)
[2017-03-10 14:27] LABS: CKMB MASS < 0.5 ng/mL (0.0-3.6)
[2017-03-10 14:34] LABS: BACTERIA,URINE 0 /HPF (0-FEW); RBC,URINE 0 /HPF (0-2); SQUAMOUS EPITHELIAL CELL,UR OCC /LPF; WBC,URINE 0 /HPF (0-4)
--- NOTE | 2017-03-10 14:42 | RAD ---
Indication: Chest pain and palpitations. Technique: Two-view chest radiograph was obtained. Comparison is from February 05, 2017. Findings: The lungs are clear. Calcified granuloma is noted on the right. The cardiopulmonary silhouette is within normal limits. There is no pleural effusion. The bony structures are intact. Leads overlie the patient. Impression: No acute thoracic findings.
[2017-03-10] MEDS ORDERED: IOHEXOL 300 MG/ML 75 ML VIAL IV ONE (16:00)
[2017-03-10] MEDS ORDERED: CONTRAST GIVEN MC PRN (16:00)
--- NOTE | 2017-03-10 16:42 | RAD ---
Indication chest pain. Contrast imaging through the chest was performed. Examination was tailored for the detection of pulmonary embolus. 75 cc of Omnipaque 300 was administered intravenously. Note is made of a similar examination just over one month ago. MIP images were generated in the coronal and sagittal planes and reviewed. The study is negative for pulmonary embolus. The thoracic aorta is unremarkable. Aberrant right subclavian artery is noted. There is no significant hilar or mediastinal adenopathy. No acute parenchymal infiltrate is seen. There is no pleural fluid. Imaging through the upper abdomen is unremarkable. IMPRESSION: No acute finding seen in the chest. Negative study for pulmonary embolus PQRS Compliance Statement: One or more of the following individualized dose reduction techniques were utilized for this examination: 1. Automated exposure control 2. Adjustment of the mA and/or kV according to patient size 3. Use of iterative reconstruction technique
[2017-03-10] MEDS ORDERED: LORA-434 PO (16:53)
[2017-03-10] MEDS ORDERED: ACET325T9 PO (16:53)
[2017-03-10 16:58] VITALS: BP 108/54
[2017-03-11] MEDS ORDERED: FERR-26 PO (18:07)
== END 2017-03-10 17:19 | disposition home or self-care (01) ==
LOC: ER 12:49
DX: R55 Syncope and collapse (principal); R07.89 Other chest pain; R00.2 Palpitations; Q21.1 Atrial septal defect; I48.91 Unspecified atrial fibrillation; Z86.73 Personal history of transient ischemic attack (TIA), and cerebral infarction without residual deficits; Z98.51 Tubal ligation status; Z88.1 Allergy status to other antibiotic agents; Z88.5 Allergy status to narcotic agent; Z88.6 Allergy status to analgesic agent; Z88.8 Allergy status to other drugs, medicaments and biological substances
CPT/HCPCS: 36415; 71020; 71275; 80053; 80307; 81001; 81025; 82553; 83690; 83735; 83880; 84443; 84484; 85025; 85379; 93005; 96360; 99285; J7030; Q9967; G0479

== ENCOUNTER 2017-03-11 15:16 | Inpatient (IN) | payer BC ==
[~2017-03-11] VITALS: Ht 170.2 cm; Wt 59.0 kg
[~2017-03-11 15:16] MED LIST changes: +ACET325T9 PO; +LORA-434 PO
[2017-03-11] MEDS ORDERED: fentaNYL PF VIAL 100 MCG/2 ML VIAL IV PRN (15:45)
--- NOTE | 2017-03-11 15:49 | PHYS DOC ---
Past Medical History Past Medical History: A-Fib, CVA Additional Past Medical Histor: PFO, CVA 2015; SVT Past Surgical History: Tubal ligation Alcohol Use: None Drug Use: None Adult General Chief Complaint Chief Complaint: CHEST WALL PAIN HPI HPI She is a pleasant 37-year-old -Swedish female with history of PFO and multiple episodes of SVT with atrial fibrillation and a prior stroke. She has a significant family history of stroke in her father who had a stroke prior to the age of 55 she herself has had one as well. She's on a daily aspirin of 81 mg and she began experiencing mild dizziness that began earlier in the week and has progressively gotten worse with now palpitations without chest pain. Impression today was sitting in a car which had a sudden onset of sharp stabbing pain in the center of her chest is exacerbated by position and her anxiety. She says that the dizziness that she had yesterday as she described as fullness in her ears without hearing loss or tinnitus and as clouded tunnel vision that occurs with standing from a kneeling laying down or sitting position. She denies any headache or other focal neurologic deficits. & Weakness. She says the palpitations actually gotten progressively worse with mild chest pressure over the last several days. She said there is also been heaviness and pain in her left arm in addition to this. She denies any fevers but has had some chills and mild diaphoresis with symptoms and a nonproductive cough. All joints without rash joint swelling or pain. Patient denies abdominal pain, nausea, vomiting or diarrhea. Denies any UTI symptoms trauma or travel outside the country. Differential diagnosis for chest pain: Pericarditis, myocarditis, endocarditis, pneumothorax, pneumonia, aortic dissection, esophageal spasm, esophagitis, peptic ulcer disease, acute coronary syndrome, mediastinitis, Boerhaave syndrome , musculoskeletal chest wall pain, costochondritis, intercostal strain, rib fracture, pulmonary contusion, pneumonitis, pleural effusion, pericardial effusion, pericardial tamponode, and pleurisy. Considered upon arrival. Concerning the fact the patient was here yesterday I will add a CT angios the chest to ensure that no pulmonary was him has developed in the interval time between evaluation now. Based on patient's history of irregular heartbeat Review of Systems Review of Systems Constitutional: Denies fever or chills [] Eyes: Denies change in visual acuity, redness, or eye pain [] HENT: Denies nasal congestion or sore throat [] Respiratory: She complains of a nonproductive cough and intermittent shortness of breath Cardiovascular: No additional information not addressed in HPI [] GI: Denies abdominal pain, she does complain of nausea without vomiting bloody stools or diarrhea. : Denies dysuria or hematuria [] Musculoskeletal: Denies back pain or joint pain [] Integument: Denies rash or skin lesions [] Neurologic: She complains of generalized myalgias without focal weakness. Endocrine: Denies polyuria or polydipsia [] Current Medications Current Medications Current Medications Medications (Trade) Dose Ordered Sig/Cassie Start Time Stop Time Status Last Admin Dose Admin Acetaminophen (Tylenol) 650 mg 1X ONCE 03/11/17 16:00 03/11/17 16:01 DC 03/11/17 16:12 650 MG Aspirin (Children'S Aspirin) 324 mg 1X ONCE 03/11/17 16:00 03/11/17 16:01 DC 03/11/17 16:12 324 MG Fentanyl Citrate (Fentanyl 2ml Vial) 50 mcg PRN Q15MIN PRN 03/11/17 15:45 03/11/17 15:45 DC Info (Do NOT chart on this entry -- for MONITORING) 1 each PRN DAILY PRN 03/11/17 16:15 03/13/17 16:14 Iohexol (Omnipaque 300 Mg/ml) 75 ml 1X ONCE 03/11/17 16:30 03/11/17 16:31 DC Allergies Allergies Allergies Coded Allergies Type Severity Reaction Last Updated Verified diphenhydramine Allergy Severe 02/04/17 Yes morphine Allergy Severe shortness of breath 02/04/17 Yes amoxicillin Allergy Intermediate hives 02/04/17 Yes clindamycin Allergy Intermediate 02/06/17 Yes doxycycline Allergy Intermediate 02/06/17 Yes hydrocodone Allergy Intermediate HIVES, tolerates Percocet 02/04/17 Yes ibuprofen Allergy Intermediate HIVES,tolerates aspirin 02/04/17 Yes Physical Exam Physical Exam Other vital signs reviewed on the chart documented at this point all within normal limits. Constitutional: Well developed, well nourished, no acute distress, non-toxic appearance. [] HENT: Normocephalic, atraumatic, bilateral external ears normal, oropharynx moist, no oral exudates, nose normal. [] Eyes: PERRLA, EOMI, conjunctiva normal, no discharge. [] Neck: Normal range of motion, no tenderness, supple, no stridor. [] Cardiovascular:Heart rate regular rhythm, no murmur [] Lungs & Thorax: Bilateral breath sounds clear to auscultation does have some chest wall tenderness to palpation of physical exam. Abdomen: Bowel sounds normal, soft, no tenderness, no masses, no pulsatile masses. [] Skin: Warm, dry, no erythema, no rash. [] Extremities: No tenderness, no cyanosis, no clubbing, ROM intact, no edema. [] Neurologic: Alert and oriented X 3, normal motor function, normal sensory function, no focal deficits noted. [] Psychologic: She is anxious Current Patient Data Vital Signs Vital Signs Date Time Temp Pulse Resp B/P (MAP) Pulse Ox O2 Delivery O2 Flow Rate FiO2 03/11/17 16:14 85 16 119/62 (81) 100 Room Air 03/11/17 15:24 98.8 98.8 Lab Values Laboratory Tests Test 03/11/17 15:45 03/11/17 16:15 White Blood Count 4.2 x10^3/uL (4.0-11.0) Red Blood Count 3.88 x10^6/uL (3.50-5.40) Hemoglobin 10.2 g/dL (12.0-15.5) L Hematocrit 31.6 % (36.0-47.0) L Mean Corpuscular Volume 82 fL (79-100) Mean Corpuscular Hemoglobin 26 pg (25-35) Mean Corpuscular Hemoglobin Concent 32 g/dL (31-37) Red Cell Distribution Width 21.3 % (11.5-14.5) H Platelet Count 396 x10^3/uL (140-400) Neutrophils (%) (Auto) 45 % (31-73) Lymphocytes (%) (Auto) 41 % (24-48) Monocytes (%) (Auto) 10 % (0-9) H Eosinophils (%) (Auto) 1 % (0-3) Basophils (%) (Auto) 2 % (0-3) Neutrophils # (Auto) 1.9 x10^3uL (1.8-7.7) Lymphocytes # (Auto) 1.7 x10^3/uL (1.0-4.8) Monocytes # (Auto) 0.4 x10^3/uL (0.0-1.1) Eosinophils # (Auto) 0.1 x10^3/uL (0.0-0.7) Basophils # (Auto) 0.1 x10^3/uL (0.0-0.2) Platelet Estimate Pending Sodium Level 140 mmol/L (136-145) Potassium Level 4.2 mmol/L (3.5-5.1) Chloride Level 104 mmol/L (98-107) Carbon Dioxide Level 26 mmol/L (21-32) Anion Gap 10 (6-14) Blood Urea Nitrogen 9 mg/dL (7-20) Creatinine 0.9 mg/dL (0.6-1.0) Estimated GFR (Cockcroft-Gault) 86.2 Glucose Level 89 mg/dL (70-99) Calcium Level 9.5 mg/dL (8.5-10.1) Total Bilirubin Pending Direct Bilirubin Pending Aspartate Amino Transferase (AST) Pending Alanine Aminotransferase (ALT) Pending Alkaline Phosphatase Pending Total Protein Pending Albumin Pending Lipase Pending Laboratory Tests 03/11/17 15:45 Laboratory Tests 03/11/17 16:15 EKG EKG [] Radiology/Procedures Radiology/Procedures [] [facility] [address] [place] [address] IMAGING REPORT Signed PATIENT: NARA SEGUNDO ACCOUNT: [id number] : 1980 LOCATION: ER AGE: 37 SEX: F EXAM STATUS: REG ER ORD. PHYSICIAN: SEBAS MAURICIO MD REASON: chest pain PROCEDURE: PORTABLE CHEST 1V Indication left-sided chest pain. A single view of the chest was obtained. Comparison is made to an examination yesterday. Note is made of a CT examination of the chest yesterday as well The heart and pulmonary vessels and mediastinum appear normal. The lungs are clear. There has not been a significant change compared to prior study. IMPRESSION: No acute finding. No significant change DICTATED and SIGNED BY: GILLIAN BLACKWELL MD DATE: 03/11/17 7534 CC: SEBAS MAURICIO MD; ALEXUS ROBLES ~ Course & Med Decision Making Course & Med Decision Making Pertinent Labs and Imaging studies reviewed. (See chart for details) [] Dragon Disclaimer Dragon Disclaimer This electronic medical record was generated, in whole or in part, using a voice recognition dictation system. Departure Departure Referrals: ALEXUS ROBLES (PCP) SEBAS MAURICIO MD Mar 11, 2017 15:49
[2017-03-11] MEDS ORDERED: ACETAMINOPHEN 325 MG TABLET. PO ONE (16:00)
[2017-03-11] MEDS ORDERED: ASPIRIN CHEWABLE 81 MG TABLET. PO ONE (16:00)
[2017-03-11 16:03] LABS: BASO # 0.1 x10^3/uL (0.0-0.2); BASO % 2 % (0-3); EOS % 1 % (0-3); HEMATOCRIT 31.6 % (36.0-47.0); HEMOGLOBIN 10.2 g/dL (12.0-15.5); LYMPH # 1.7 x10^3/uL (1.0-4.8); LYMPH % 41 % (24-48); MEAN CORPUSCULAR HEMOGLOBIN 26 pg (25-35); MEAN CORPUSCULAR HGB CONC 32 g/dL (31-37); MEAN CORPUSCULAR VOLUME 82 fL (79-100); MONO % 10 % (0-9); NEUT % 45 % (31-73); PLATELET COUNT 396 x10^3/uL (140-400); RED BLOOD COUNT 3.88 x10^6/uL (3.50-5.40); RED CELL DISTRIBUTION WIDTH 21.3 % (11.5-14.5); WHITE BLOOD COUNT 4.2 x10^3/uL (4.0-11.0)
--- NOTE | 2017-03-11 16:09 | RAD ---
Indication left-sided chest pain. A single view of the chest was obtained. Comparison is made to an examination yesterday. Note is made of a CT examination of the chest yesterday as well The heart and pulmonary vessels and mediastinum appear normal. The lungs are clear. There has not been a significant change compared to prior study. IMPRESSION: No acute finding. No significant change
[2017-03-11] MEDS ORDERED: CONTRAST GIVEN MC PRN (16:15)
--- NOTE | 2017-03-11 16:20 | EKG ---
[facility] [address] [place] [address] Test Date: 2017-03-11 Test Time: 15:46:47 Pat Name: NARA SEGUNDO Department: Room: Gender: F Kier Tender: : 1980 Requested By: SEBAS MAURICIO Order Number: [id number] Reading MD: Measurements Intervals [place] Rate: 91 P: 13 CA: 144 QRS: 26 QRSD: 82 T: 24 QT: 420 QTc: 519 Interpretive Statements SINUS RHYTHM INCOMPLETE RIGHT BUNDLE BRANCH BLOCK T ABNORMALITY IN HIGH LATERAL LEADS PROLONGED QT RI6.01 Unconfirmed report No previous ECG available for comparison
[2017-03-11] MEDS ORDERED: IOHEXOL 300 MG/ML 75 ML VIAL IV ONE (16:30)
[2017-03-11 16:38] LABS: CALCIUM 9.5 mg/dL (8.5-10.1); CREATININE 0.9 mg/dL (0.6-1.0); GFR 86.2; POTASSIUM 4.2 mmol/L (3.5-5.1)
[2017-03-11 16:44] LABS: ALBUMIN 3.7 g/dL (3.4-5.0); DIRECT BILIRUBIN 0.1 mg/dL (0.0-0.2); TOTAL BILIRUBIN 0.3 mg/dL (0.2-1.0); TOTAL PROTEIN 7.3 g/dL (6.4-8.2)
[2017-03-11 16:46] LABS: ANISOCYTOSIS MOD; HYPOCHROMIA SLIGHT; PLT ESTIMATE ADEQUATE (ADEQUATE); POLYCHROMASIA SLIGHT
[2017-03-11 16:51] LABS: CREATINE KINASE 38 U/L (26-192)
[2017-03-11 16:53] LABS: CKMB MASS < 0.5 ng/mL (0.0-3.6)
[2017-03-11] MEDS ORDERED: ACETAMINOPHEN 325 MG TABLET. PO PRN (17:30)
[2017-03-11] MEDS ORDERED: ONDANSETRON PF 4 MG/2 ML VIAL. IV PRN (17:30)
--- NOTE | 2017-03-11 17:40 | PDOC1 ---
History and Physical Date of Admission Date of Admission DATE: 03/11/17 TIME: 17:34 Identification/Chief Complaint Chief Complaint chest pain, dizzy, pre //near syncopal sxs Problems: Source Source: Caregiver, Chart review, Patient History of Present Illness History of Present Illness Pleasant 37 y.o AA female known to our cards group for an admission Sept for the below: Conclusion 1. No evidence of stress induced EKG changes. 2. Normal myocardial perfusion at stress/rest. 3. Normal EF at stress at > 70% 4. Low risk study DATE: 03/05/16 1523 <Conclusion> TTE The left ventricle is normal size. The left ventricular systolic function is normal and the ejection fraction is within normal range. The Ejection Fraction is 60-65%. The interatrial septum is intact with no evidence for an atrial septal defect or patent foramen ovale as noted on 2-D or Doppler imaging. The atrial septum is aneurysmal. The PFO previously diagnosed with TRISTEN visualization could not be seen at this time. There is no significant aortic valvular stenosis. Doppler and Color Flow revealed no significant aortic regurgitation. Doppler and Color Flow revealed no mitral valve regurgitation noted. Doppler and Color Flow revealed trace tricuspid regurgitation. The pulmonary artery systolic pressure is estimated at 25 mmHg. COmes in bec of near syncopal sxs with CP, She claims she was taken off BB bec of hypotension, saw Rohit Campbell last weak as OP and everything ok. NEver did get the event monitor as OP mentioned in Sept note,. COmes in bec of sharp left sided cp at rest, no dipahoresis, maybe radiated to back, CTA recent (yesterday) is neg, Does not like narcs, no relief with tylenol and NSAIDs at home. Claims she has hx SVT and sometimes she feels she will pass out Admitted with cards, Past Medical History Cardiovascular: Hyperlipidemia, Other Pulmonary: Asthma CENTRAL NERVOUS SYSTEM: CVA GI: GERD Heme/Onc: No pertinent hx Hepatobiliary: No pertinent hx Psych: Anxiety Rheumatologic: No pertinent hx Infectious disease: No pertinent hx Renal/: No pertinent hx Endocrine: No pertinent hx Past Surgical History Past Surgical History: Tubal Ligation Family History Family History: Hypertension, Other Social History Smoke: No ALCOHOL: none Drugs: None Current Medications Current Medications Current Medications Aspirin (Children'S Aspirin) 324 mg 1X ONCE PO Last administered on t 16:12; Start 03/11/17 at 16:00; Stop 03/11/17 at 16:01; Status DC Fentanyl Citrate (Fentanyl 2ml Vial) 50 mcg PRN Q15MIN PRN IV PAIN GREATER THAN 3/10; Start 03/11/17 at 15:45; Stop 03/11/17 at 15:45; Status DC Acetaminophen (Tylenol) 650 mg 1X ONCE PO Last administered on 03/11/17t 16: 12; Start 03/11/17 at 16:00; Stop 03/11/17 at 16:01; Status DC Iohexol (Omnipaque 300 Mg/ml) 75 ml 1X ONCE IV ; Start 03/11/17 at 16:30; Stop 03/11/17 at 16:31; Status DC Info (Do NOT chart on this entry -- for MONITORING) 1 each PRN DAILY PRN MC SEE COMMENTS; Start 03/11/17 at 16:15; Stop 03/13/17 at 16:14 Ondansetron HCl (Zofran) 4 mg PRN Q8HRS PRN IV NAUSEA/VOMITING; Start at 17:30; Stop 03/12/17 at 17:29 Sodium Chloride 1,000 ml @ 125 mls/hr Q8H IV ; Start 03/11/17 at 17:26; Stop 03/12/17 at 17:25 Acetaminophen (Tylenol) 650 mg PRN Q4HRS PRN PO FEVER; Start 03/11/17 at 17:30 ; Stop 03/12/17 at 17:29 Active Scripts Active Tylenol (Acetaminophen) 325 Mg Tablet 1-2 Tab PO QID Ativan (Lorazepam) 1 Mg Tablet 1 Mg PO BID 5 Days Fluticasone Propionate Nasal [place] (Fluticasone Propionate) 16 Gm [place].susp 2 [place] NS DAILY Atorvastatin Calcium 20 Mg Tablet 20 Mg PO QHS Reported Xanax (Alprazolam) 0.25 Mg Tablet 1 Tab PO Q8HRS PRN Metoprolol Tartrate 25 Mg Tablet 0.5 Tab PO BID Doxycycline Monohydrate 100 Mg Capsule 100 Mg PO BID 10 Days Escitalopram Oxalate 10 Mg Tablet 10 Mg PO DAILY Protonix (Pantoprazole Sodium) 40 Mg Tablet.dr 40 Mg PO DAILY Aspirin 81 Mg Tab.chew 1 Tab PO DAILY Allergies Allergies: Coded Allergies: diphenhydramine (Verified Allergy, Severe, 02/04/17) SVT morphine (Verified Allergy, Severe, shortness of breath, 02/04/17) amoxicillin (Verified Allergy, Intermediate, hives, 02/04/17) clindamycin (Verified Allergy, Intermediate, 02/06/17) doxycycline (Verified Allergy, Intermediate, 02/06/17) hydrocodone (Verified Allergy, Intermediate, HIVES, tolerates Percocet, 05/11) ibuprofen (Verified Allergy, Intermediate, HIVES,tolerates aspirin, ) ROS General: No: Chills, Night Sweats, Fatigue, Malaise, Appetite, Other PSYCHOLOGICAL ROS: No: Anxiety, Behavioral Disorder, Concentration difficultie , Decreased libido, Depression, Disorientation, Hallucinations, Hostility, Irritablity, Memory difficulties, Mood Swings, Obsessive thoughts, Physical abuse, Sexual abuse, Sleep disturbances, Suicidal ideation, Other Eyes: No Blurry vision, No Decreased vision, No Double vision, No Dry eyes, No Excessive tearing, No Eye Pain, No Itchy Eyes, No Loss of vision, No Photophobia , No Scotomata, No Uses contacts, No Uses glasses, No Other ALLERGY AND IMMUNOLOGY: No: Hives, Insect Bite Sensitivity, Itchy/Watery Eyes, Nasal Congestion, Post Nasal Drip, Seasonal Allergies, Other Hematological and Lymphatic: No: Bleeding Problems, Blood Clots, Blood Transfusions, Brusing, Night Sweats, Pallor, Swollen Lymph Nodes, Other ENDOCRINE: No: Breast Changes, Galactorrhea, Hair Pattern Changes, Hot Flashes , Malaise/lethargy, Mood Swings, Palpitations, Polydipsia/polyuria, Skin Changes , Temperature Intolerance, Unexpected Weight Changes, Other Breast: No New/Changing Breast Lumps, No Nipple changes, No Nipple discharge, No Other Respiratory: No: Cough, Hemoptysis, Orthopnea, Pleuritic Pain, Shortness of breath, SOB with excertion, Sputum Changes, Stridor, Tachypnea, Wheezing, Other Cardiovascular: yes Chest Pain, yes Palpitations, yes Lt Headedness, yes Other (dizzy) Gastrointestinal: No Nausea, No Vomiting, No Abdominal Pain, No Diarrhea, No Constipation, No Melena, No Hematochezia, No Other Genitourinary: No Dysuria, No Frequency, No Incontinence, No Hematuria, No Retention, No Discharge, No Urgency, No Pain, No Flank Pain, No Other, No , No , No , No , No , No , No Musculoskeletal: No Gait Disturbance, No Joint Pain, No Joint Stiffness, No Joint Swelling, No Muscle Pain, No Muscular Weakness, No Pain In:, No Swelling In:, No Other Neurological: No Behavorial Changes, No Bowel/Bladder ControlChng, No Confusion , No Dizziness, No Gait Disturbance, No Headaches, No Impaired Coord/balance, No Memory Loss, No Numbness/Tingling, No Seizures, No Speech Problems, No Tremors, No Visual Changes, No Weakness, No Other Skin: No Dry Skin, No Eczema, No Hair Changes, No Lumps, No Mole Changes, No Mottling, No Nail Changes, No Pruritus, No Rash, No Skin Lesion Changes, No Other, No Acne Physical Exam General: Alert, Oriented X3, Cooperative, No acute distress HEENT: PERRLA Lungs: Clear to auscultation, Normal air movement Heart: S1S2, RRR, no thrills, no rubs, no gallops, no murmurs Cardiovascular: S1, S2 Breasts: Normal, Rt breast nml w/o mass, Lt breast nml w/o mass, Nipples normal Abdomen: Normal bowel sounds, Soft, No tenderness, No hepatosplenomegaly, No masses Rectal Exam: not examined PELVIC: Nml ext genitalia Extremities: No clubbing, No cyanosis, No edema, Normal pulses, No tenderness/ swelling Skin: No rashes, No breakdown, No significant lesion Neuro: Normal gait, Normal speech, Strength at 5/5 X4 ext, Normal tone, Sensation intact, Cranial nerves 3-12 NL, Reflexes 2+ Psych/Mental Status: Mental status NL, Mood NL Vitals Vitals Vital Signs Date Time Temp Pulse Resp B/P (MAP) Pulse Ox O2 Delivery O2 Flow Rate FiO2 03/11/17 16:14 85 16 119/62 (81) 100 Room Air 03/11/17 15:24 98.8 98.8 Labs Labs Laboratory Tests Test 03/11/17 15:45 03/11/17 16:15 White Blood Count 4.2 x10^3/uL (4.0-11.0) Red Blood Count 3.88 x10^6/uL (3.50-5.40) Hemoglobin 10.2 g/dL (12.0-15.5) Hematocrit 31.6 % (36.0-47.0) Mean Corpuscular Volume 82 fL (79-100) Mean Corpuscular Hemoglobin 26 pg (25-35) Mean Corpuscular Hemoglobin Concent 32 g/dL (31-37) Red Cell Distribution Width 21.3 % (11.5-14.5) Platelet Count 396 x10^3/uL (140-400) Neutrophils (%) (Auto) 45 % (31-73) Lymphocytes (%) (Auto) 41 % (24-48) Monocytes (%) (Auto) 10 % (0-9) Eosinophils (%) (Auto) 1 % (0-3) Basophils (%) (Auto) 2 % (0-3) Neutrophils # (Auto) 1.9 x10^3uL (1.8-7.7) Lymphocytes # (Auto) 1.7 x10^3/uL (1.0-4.8) Monocytes # (Auto) 0.4 x10^3/uL (0.0-1.1) Eosinophils # (Auto) 0.1 x10^3/uL (0.0-0.7) Basophils # (Auto) 0.1 x10^3/uL (0.0-0.2) Platelet Estimate Adequate (ADEQUATE) Polychromasia Slight Hypochromasia Slight Anisocytosis Mod Sodium Level 140 mmol/L (136-145) Potassium Level 4.2 mmol/L (3.5-5.1) Chloride Level 104 mmol/L (98-107) Carbon Dioxide Level 26 mmol/L (21-32) Anion Gap 10 (6-14) Blood Urea Nitrogen 9 mg/dL (7-20) Creatinine 0.9 mg/dL (0.6-1.0) Estimated GFR (Cockcroft-Gault) 86.2 Glucose Level 89 mg/dL (70-99) Calcium Level 9.5 mg/dL (8.5-10.1) Total Bilirubin 0.3 mg/dL (0.2-1.0) Direct Bilirubin 0.1 mg/dL (0.0-0.2) Aspartate Amino Transf (AST/SGOT) 14 U/L (15-37) Alanine Aminotransferase (ALT/SGPT) 13 U/L (14-59) Alkaline Phosphatase 44 U/L (46-116) Creatine Kinase 38 U/L (26-192) Creatine Kinase MB (Mass) < 0.5 ng/mL (0.0-3.6) Creatine Kinase MB Relative Index 1.3 % (0-4) Troponin I Quantitative < 0.017 ng/mL (0.000-0.055) RO-Qov-L-Type Natriuretic Peptide 40 pg/mL (0-124) Total Protein 7.3 g/dL (6.4-8.2) Albumin 3.7 g/dL (3.4-5.0) Lipase 175 U/L (73-393) Laboratory Tests Test 03/11/17 15:45 03/11/17 16:15 White Blood Count 4.2 x10^3/uL (4.0-11.0) Red Blood Count 3.88 x10^6/uL (3.50-5.40) Hemoglobin 10.2 g/dL (12.0-15.5) Hematocrit 31.6 % (36.0-47.0) Mean Corpuscular Volume 82 fL (79-100) Mean Corpuscular Hemoglobin 26 pg (25-35) Mean Corpuscular Hemoglobin Concent 32 g/dL (31-37) Red Cell Distribution Width 21.3 % (11.5-14.5) Platelet Count 396 x10^3/uL (140-400) Neutrophils (%) (Auto) 45 % (31-73) Lymphocytes (%) (Auto) 41 % (24-48) Monocytes (%) (Auto) 10 % (0-9) Eosinophils (%) (Auto) 1 % (0-3) Basophils (%) (Auto) 2 % (0-3) Neutrophils # (Auto) 1.9 x10^3uL (1.8-7.7) Lymphocytes # (Auto) 1.7 x10^3/uL (1.0-4.8) Monocytes # (Auto) 0.4 x10^3/uL (0.0-1.1) Eosinophils # (Auto) 0.1 x10^3/uL (0.0-0.7) Basophils # (Auto) 0.1 x10^3/uL (0.0-0.2) Platelet Estimate Adequate (ADEQUATE) Polychromasia Slight Hypochromasia Slight Anisocytosis Mod Sodium Level 140 mmol/L (136-145) Potassium Level 4.2 mmol/L (3.5-5.1) Chloride Level 104 mmol/L (98-107) Carbon Dioxide Level 26 mmol/L (21-32) Anion Gap 10 (6-14) Blood Urea Nitrogen 9 mg/dL (7-20) Creatinine 0.9 mg/dL (0.6-1.0) Estimated GFR (Cockcroft-Gault) 86.2 Glucose Level 89 mg/dL (70-99) Calcium Level 9.5 mg/dL (8.5-10.1) Total Bilirubin 0.3 mg/dL (0.2-1.0) Direct Bilirubin 0.1 mg/dL (0.0-0.2) Aspartate Amino Transf (AST/SGOT) 14 U/L (15-37) Alanine Aminotransferase (ALT/SGPT) 13 U/L (14-59) Alkaline Phosphatase 44 U/L (46-116) Creatine Kinase 38 U/L (26-192) Creatine Kinase MB (Mass) < 0.5 ng/mL (0.0-3.6) Creatine Kinase MB Relative Index 1.3 % (0-4) Troponin I Quantitative < 0.017 ng/mL (0.000-0.055) YS-Nqd-N-Type Natriuretic Peptide 40 pg/mL (0-124) Total Protein 7.3 g/dL (6.4-8.2) Albumin 3.7 g/dL (3.4-5.0) Lipase 175 U/L (73-393) VTE Prophylaxis Ordered VTE Prophylaxis Devices: Yes VTE Pharmacological Prophylaxi: Yes Assessment/Plan Assessment/Plan 1. CP, Palpitations/dizziness: 2. Generalized anxiety disorder? 3. 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 GERD exacerbation: recent EGD with grade 1 reflux 5. NO DM 6. HLP: statin 7. Pre syncopal sxs 8. Intolerance to BB bec of hypotension PLAn: Admit CVC Hook tele Cards consult COnt meds Await further cards recs Supportive meds Seen at ER XAnax prn -s he appears calm to TOOTIE Guerra MD Mar 11, 2017 17:40
[2017-03-11] MEDS ORDERED: traMADol 50 MG TABLET PO PRN (17:45)
[2017-03-11] MEDS ORDERED: KETOROLAC 15 MG/ML VIAL. IV PRN (17:45)
[2017-03-11] MEDS: IV NORMAL SALINE 1000ML BAG 1,000 ML IV SCH (17:54)
[2017-03-11 18:03] VITALS: BP 127/76
[2017-03-11] MEDS ORDERED: FERR-26 PO (18:07)
[2017-03-11 19:35] VITALS: BP 134/62
[2017-03-11] MEDS: METOPROLOL TART IMMED RELEASE 25 MG TABLET. PO SCH (21:00)
[2017-03-11] MEDS ORDERED: ATORVASTATIN CALCIUM 20 MG TABLET PO SCH (21:00)
[2017-03-11] MEDS ORDERED: LORazepam 1 MG TABLET PO SCH (21:00)
[2017-03-11] MEDS: ACETAMINOPHEN 325 MG TABLET. PO SCH (21:05)
[2017-03-11] MEDS: ALPRAZolam 0.25 MG TABLET PO PRN (21:06)
[2017-03-11 23:00] VITALS: BP 122/65
[2017-03-12] MEDS: IV NORMAL SALINE 1000ML BAG 1,000 ML IV SCH (01:26)
[2017-03-12 03:00] VITALS: BP 107/55
[2017-03-12 05:16] LABS: MAGNESIUM 1.7 mg/dL (1.8-2.4)
[2017-03-12 07:00] VITALS: BP 114/58
[2017-03-12] MEDS ORDERED: PANTOPRAZOLE 40 MG TABLET.DR. PO SCH (07:30)
[2017-03-12] MEDS ORDERED: FLUTICASONE 50MCG/NASAL SPRAY 16GM BOTTLE. NS SCH (09:00)
[2017-03-12] MEDS ORDERED: ASPIRIN CHEWABLE 81 MG TABLET. PO SCH (09:00)
[2017-03-12] MEDS ORDERED: CITALOPRAM 20 MG TABLET. PO SCH (09:00)
[2017-03-12] MEDS: METOPROLOL TART IMMED RELEASE 25 MG TABLET. PO SCH (09:00)
--- NOTE | 2017-03-12 10:42 | PDOC ---
GAL BELLA KRISTOFER 03/12/17 1042: CARDIO Progress Notes Date and Time Date of Service 03/12/17 Time of Evaluation 1015 Subjective Subjective: No shortness of breath, Other (c/o pain in left chest and bilateral arms- reproducible with palpation. c/o lightheadedness (reports as chronic)) Vitals Vitals Vital Signs Date Time Temp Pulse Resp B/P (MAP) Pulse Ox O2 Delivery O2 Flow Rate FiO2 03/12/17 08:00 Room Air 03/12/17 07:00 97.8 85 20 114/58 (76) 100 97.8 Weight Weight [ ] Laboratory Labs Laboratory Tests Test 03/11/17 15:45 03/11/17 16:15 03/11/17 23:15 03/12/17 04:45 White Blood Count 4.2 x10^3/uL (4.0-11.0) Red Blood Count 3.88 x10^6/uL (3.50-5.40) Hemoglobin 10.2 g/dL (12.0-15.5) Hematocrit 31.6 % (36.0-47.0) Mean Corpuscular Volume 82 fL (79-100) Mean Corpuscular Hemoglobin 26 pg (25-35) Mean Corpuscular Hemoglobin Concent 32 g/dL (31-37) Red Cell Distribution Width 21.3 % (11.5-14.5) Platelet Count 396 x10^3/uL (140-400) Neutrophils (%) (Auto) 45 % (31-73) Lymphocytes (%) (Auto) 41 % (24-48) Monocytes (%) (Auto) 10 % (0-9) Eosinophils (%) (Auto) 1 % (0-3) Basophils (%) (Auto) 2 % (0-3) Neutrophils # (Auto) 1.9 x10^3uL (1.8-7.7) Lymphocytes # (Auto) 1.7 x10^3/uL (1.0-4.8) Monocytes # (Auto) 0.4 x10^3/uL (0.0-1.1) Eosinophils # (Auto) 0.1 x10^3/uL (0.0-0.7) Basophils # (Auto) 0.1 x10^3/uL (0.0-0.2) Platelet Estimate Adequate (ADEQUATE) Polychromasia Slight Hypochromasia Slight Anisocytosis Mod Sodium Level 140 mmol/L (136-145) Potassium Level 4.2 mmol/L (3.5-5.1) Chloride Level 104 mmol/L (98-107) Carbon Dioxide Level 26 mmol/L (21-32) Anion Gap 10 (6-14) Blood Urea Nitrogen 9 mg/dL (7-20) Creatinine 0.9 mg/dL (0.6-1.0) Estimated GFR (Cockcroft-Gault) 86.2 Glucose Level 89 mg/dL (70-99) Calcium Level 9.5 mg/dL (8.5-10.1) Total Bilirubin 0.3 mg/dL (0.2-1.0) Direct Bilirubin 0.1 mg/dL (0.0-0.2) Aspartate Amino Transf (AST/SGOT) 14 U/L (15-37) Alanine Aminotransferase (ALT/SGPT) 13 U/L (14-59) Alkaline Phosphatase 44 U/L (46-116) Creatine Kinase 38 U/L (26-192) Creatine Kinase MB (Mass) < 0.5 ng/mL (0.0-3.6) Creatine Kinase MB Relative Index 1.3 % (0-4) Troponin I Quantitative < 0.017 ng/mL (0.000-0.055) < 0.017 ng/mL (0.000-0.055) < 0.017 ng/mL (0.000-0.055) QD-Tof-N-Type Natriuretic Peptide 40 pg/mL (0-124) Total Protein 7.3 g/dL (6.4-8.2) Albumin 3.7 g/dL (3.4-5.0) Lipase 175 U/L (73-393) Magnesium Level 1.7 mg/dL (1.8-2.4) Triglycerides Level 40 mg/dL (0-150) Cholesterol Level 166 mg/dL (0-200) LDL Cholesterol, Calculated 103 mg/dL (0-100) VLDL Cholesterol, Calculated 8 mg/dL (0-40) Non-HDL Cholesterol Calculated 111 mg/dL (0-129) HDL Cholesterol 55 mg/dL (40-60) Cholesterol/HDL Ratio 3.0 Physical Exam HEENT: Neck Supple W Full Motion Chest: Symmetric, Other (left chest tenderness upon palpation) LUNGS: Clear to Auscultation Heart: S1S2, RRR Abdomen: Soft N/T Extremities: No Edema, No Calf Tenderness, Other (bilateral shoulder pain with active ROM and palpation) Neurology: alert, oriented, follow commands, other (anxious ) Assessment Assessment Continuum of care Please see office noted from 03/06/17 in physical chart for further details HPI: This is a 37 yo female, well known to us from outpatient clinic and previous hospitalizations, who presented with complaints of chest and shoulder pain. Patient reports symptoms began two days ago. . Pain initially located in her left shoulder. Radiates down to her left chest. Describes as stabbing in nature. Has been intermittent. Seems to be brought on be certain movements. Exacerbated by applying pressure to the left chest and loft shoulder along with turning her body a certain way. Denies any diaphoresis, SOA, or nausea/ vomiting. Has has some lightheadedness, but no worse that usual. Reports compliance with medications. History also includes anxiety, paroxysmal SVT, and cryptogenic stoke with known PFO (deemed a poor candidate for percutaneous or surgical close due to a nickel allergy. ROS: 14 point ROS conducted with pertinent positives noted above in HPI Assessment 1. Chest pain, noncardiac; most probably MSK in origin. AMI ruled out. 2. Palpitations/dizziness: recent echo in normal LV function. Anxiety likely contributing factors. Unable to tolerate BB due to hypotension. Maintain adequate fluid intake. 3. Generalized anxiety disorder? Xanax PRN- does not feel lose dose is effective. Will defer to PCP 4. Hx of PSVT; maintaining SR. No significant arrhythmias noted on telemetry 5. Cryptogenic stroke with known PFO; as evidenced by positive bubble study. Poor candidate for closure due to nickel allergy. No further TIA/CVA symptoms 6. HLP: statin therapy 7. Hypomagnesemia Recommendations 1. Continue with low dose ECASA. 2. Replace Mg. Monitor lytes 3. Supportive care. No further ischemic workup necessary at this time. 4. Consider outpatient event monitor MARIJA BLOOM MD 03/12/17 8127: CARDIO Progress Notes Assessment Assessment Patient seen and examined. Agree with PHOTO OFFSET PRINTER's assessment and plan. Chest pain with atypical features and most probably musculoskeletal. Myocardial infarction be ruled out. Patient history of PSVT but telemetry did not show any significant arrhythmias. Dizziness of uncertain etiology. We will consider event monitor if symptoms persist. Known history of PFO without any TIA/CVA in the interim. Okay for discharge from cardiac standpoint. Thank you for your consultation. GAL BELLA APRN Mar 12, 2017 10:42 MARIJA BLOOM MD Mar 12, 2017 16:48
[2017-03-12] MEDS: ALPRAZolam 0.25 MG TABLET PO PRN (10:59)
[2017-03-12] MEDS: ACETAMINOPHEN 325 MG TABLET. PO SCH ×3 (10:59→17:00)
[2017-03-12 11:00] VITALS: BP 126/78
[2017-03-12] MEDS: MAGNESIUM SULFATE 2GM 50 ML IV ONE ×2 (11:15→11:24)
--- NOTE | 2017-03-12 13:29 | PDOC ---
PROGRESS NOTES Chief Complaint Chief Complaint Chest pain Palpitations/dizziness Generalized anxiety disorder? Hx of PSVT Hypomagnesemia Possible fibromyalgia? History of Present Illness History of Present Illness A 37 year old lady presented to the ED with a complain of chest and shoulder pain. She was examined at the bedside. Today patient complained of lightheadedness. She stated that she is under a lot of stress from work/home. She also discussed occasional muscles/joints soreness and weakness which could indicate possible fibromyalgia. She was prescribed lyrica 75mg PO bid. She claimed that other doctors she saw previously suggested that she might have fibromyalgia as well. She appears slightly tired, but otherwise is in good humor and can carry a conversation without problem. Hypomegnesemia was discussed with the patient and she agreed to buy Mg tablets OTC. She is also followed by cardiology. If ok with cardiology, she can be discharged home. Vitals Vitals Vital Signs Date Time Temp Pulse Resp B/P (MAP) Pulse Ox O2 Delivery O2 Flow Rate FiO2 03/12/17 11:00 98.8 72 16 126/78 (94) 100 Room Air 98.8 Physical Exam General: Alert, Oriented X3, Cooperative, No acute distress Heart: Regular rate, Normal S1, Normal S2 Lungs: Clear, Other Abdomen: Normal bowel sounds, Soft, No tenderness, No hepatosplenomegaly, No masses Extremities: No clubbing, No cyanosis, No edema, Normal pulses, No tenderness/ swelling Skin: No rashes, No breakdown, No significant lesion Labs LABS Laboratory Tests Test 03/11/17 15:45 03/11/17 16:15 03/11/17 23:15 03/12/17 04:45 White Blood Count 4.2 x10^3/uL (4.0-11.0) Red Blood Count 3.88 x10^6/uL (3.50-5.40) Hemoglobin 10.2 g/dL (12.0-15.5) Hematocrit 31.6 % (36.0-47.0) Mean Corpuscular Volume 82 fL (79-100) Mean Corpuscular Hemoglobin 26 pg (25-35) Mean Corpuscular Hemoglobin Concent 32 g/dL (31-37) Red Cell Distribution Width 21.3 % (11.5-14.5) Platelet Count 396 x10^3/uL (140-400) Neutrophils (%) (Auto) 45 % (31-73) Lymphocytes (%) (Auto) 41 % (24-48) Monocytes (%) (Auto) 10 % (0-9) Eosinophils (%) (Auto) 1 % (0-3) Basophils (%) (Auto) 2 % (0-3) Neutrophils # (Auto) 1.9 x10^3uL (1.8-7.7) Lymphocytes # (Auto) 1.7 x10^3/uL (1.0-4.8) Monocytes # (Auto) 0.4 x10^3/uL (0.0-1.1) Eosinophils # (Auto) 0.1 x10^3/uL (0.0-0.7) Basophils # (Auto) 0.1 x10^3/uL (0.0-0.2) Platelet Estimate Adequate (ADEQUATE) Polychromasia Slight Hypochromasia Slight Anisocytosis Mod Sodium Level 140 mmol/L (136-145) Potassium Level 4.2 mmol/L (3.5-5.1) Chloride Level 104 mmol/L (98-107) Carbon Dioxide Level 26 mmol/L (21-32) Anion Gap 10 (6-14) Blood Urea Nitrogen 9 mg/dL (7-20) Creatinine 0.9 mg/dL (0.6-1.0) Estimated GFR (Cockcroft-Gault) 86.2 Glucose Level 89 mg/dL (70-99) Calcium Level 9.5 mg/dL (8.5-10.1) Total Bilirubin 0.3 mg/dL (0.2-1.0) Direct Bilirubin 0.1 mg/dL (0.0-0.2) Aspartate Amino Transf (AST/SGOT) 14 U/L (15-37) Alanine Aminotransferase (ALT/SGPT) 13 U/L (14-59) Alkaline Phosphatase 44 U/L (46-116) Creatine Kinase 38 U/L (26-192) Creatine Kinase MB (Mass) < 0.5 ng/mL (0.0-3.6) Creatine Kinase MB Relative Index 1.3 % (0-4) Troponin I Quantitative < 0.017 ng/mL (0.000-0.055) < 0.017 ng/mL (0.000-0.055) < 0.017 ng/mL (0.000-0.055) QG-Ija-W-Type Natriuretic Peptide 40 pg/mL (0-124) Total Protein 7.3 g/dL (6.4-8.2) Albumin 3.7 g/dL (3.4-5.0) Lipase 175 U/L (73-393) Magnesium Level 1.7 mg/dL (1.8-2.4) Triglycerides Level 40 mg/dL (0-150) Cholesterol Level 166 mg/dL (0-200) LDL Cholesterol, Calculated 103 mg/dL (0-100) VLDL Cholesterol, Calculated 8 mg/dL (0-40) Non-HDL Cholesterol Calculated 111 mg/dL (0-129) HDL Cholesterol 55 mg/dL (40-60) Cholesterol/HDL Ratio 3.0 Review of Systems Review of Systems fatigue and lightheadedness Assessment and Plan Assessmemt and Plan Assessment: Chest pain Palpitations/dizziness Generalized anxiety disorder? Hx of PSVT Hypomagnesemia Possible fibromyalgia? Anemia Plan: Continue cardiac monitoring Lyrica 75mg PO bid for fibromyalgia Discharge if ok with cardiology Follow up with PCP in 1 week PTOT Problems: Comment Review of Relevant I have reviewed the following items janet (where applicable) has been applied. Labs Laboratory Tests Test 03/11/17 15:45 03/11/17 16:15 03/11/17 23:15 03/12/17 04:45 White Blood Count 4.2 x10^3/uL (4.0-11.0) Red Blood Count 3.88 x10^6/uL (3.50-5.40) Hemoglobin 10.2 g/dL (12.0-15.5) Hematocrit 31.6 % (36.0-47.0) Mean Corpuscular Volume 82 fL (79-100) Mean Corpuscular Hemoglobin 26 pg (25-35) Mean Corpuscular Hemoglobin Concent 32 g/dL (31-37) Red Cell Distribution Width 21.3 % (11.5-14.5) Platelet Count 396 x10^3/uL (140-400) Neutrophils (%) (Auto) 45 % (31-73) Lymphocytes (%) (Auto) 41 % (24-48) Monocytes (%) (Auto) 10 % (0-9) Eosinophils (%) (Auto) 1 % (0-3) Basophils (%) (Auto) 2 % (0-3) Neutrophils # (Auto) 1.9 x10^3uL (1.8-7.7) Lymphocytes # (Auto) 1.7 x10^3/uL (1.0-4.8) Monocytes # (Auto) 0.4 x10^3/uL (0.0-1.1) Eosinophils # (Auto) 0.1 x10^3/uL (0.0-0.7) Basophils # (Auto) 0.1 x10^3/uL (0.0-0.2) Platelet Estimate Adequate (ADEQUATE) Polychromasia Slight Hypochromasia Slight Anisocytosis Mod Sodium Level 140 mmol/L (136-145) Potassium Level 4.2 mmol/L (3.5-5.1) Chloride Level 104 mmol/L (98-107) Carbon Dioxide Level 26 mmol/L (21-32) Anion Gap 10 (6-14) Blood Urea Nitrogen 9 mg/dL (7-20) Creatinine 0.9 mg/dL (0.6-1.0) Estimated GFR (Cockcroft-Gault) 86.2 Glucose Level 89 mg/dL (70-99) Calcium Level 9.5 mg/dL (8.5-10.1) Total Bilirubin 0.3 mg/dL (0.2-1.0) Direct Bilirubin 0.1 mg/dL (0.0-0.2) Aspartate Amino Transf (AST/SGOT) 14 U/L (15-37) Alanine Aminotransferase (ALT/SGPT) 13 U/L (14-59) Alkaline Phosphatase 44 U/L (46-116) Creatine Kinase 38 U/L (26-192) Creatine Kinase MB (Mass) < 0.5 ng/mL (0.0-3.6) Creatine Kinase MB Relative Index 1.3 % (0-4) Troponin I Quantitative < 0.017 ng/mL (0.000-0.055) < 0.017 ng/mL (0.000-0.055) < 0.017 ng/mL (0.000-0.055) AJ-Jyw-B-Type Natriuretic Peptide 40 pg/mL (0-124) Total Protein 7.3 g/dL (6.4-8.2) Albumin 3.7 g/dL (3.4-5.0) Lipase 175 U/L (73-393) Magnesium Level 1.7 mg/dL (1.8-2.4) Triglycerides Level 40 mg/dL (0-150) Cholesterol Level 166 mg/dL (0-200) LDL Cholesterol, Calculated 103 mg/dL (0-100) VLDL Cholesterol, Calculated 8 mg/dL (0-40) Non-HDL Cholesterol Calculated 111 mg/dL (0-129) HDL Cholesterol 55 mg/dL (40-60) Cholesterol/HDL Ratio 3.0 Laboratory Tests Test 03/11/17 15:45 03/11/17 16:15 03/11/17 23:15 03/12/17 04:45 White Blood Count 4.2 x10^3/uL (4.0-11.0) Red Blood Count 3.88 x10^6/uL (3.50-5.40) Hemoglobin 10.2 g/dL (12.0-15.5) Hematocrit 31.6 % (36.0-47.0) Mean Corpuscular Volume 82 fL (79-100) Mean Corpuscular Hemoglobin 26 pg (25-35) Mean Corpuscular Hemoglobin Concent 32 g/dL (31-37) Red Cell Distribution Width 21.3 % (11.5-14.5) Platelet Count 396 x10^3/uL (140-400) Neutrophils (%) (Auto) 45 % (31-73) Lymphocytes (%) (Auto) 41 % (24-48) Monocytes (%) (Auto) 10 % (0-9) Eosinophils (%) (Auto) 1 % (0-3) Basophils (%) (Auto) 2 % (0-3) Neutrophils # (Auto) 1.9 x10^3uL (1.8-7.7) Lymphocytes # (Auto) 1.7 x10^3/uL (1.0-4.8) Monocytes # (Auto) 0.4 x10^3/uL (0.0-1.1) Eosinophils # (Auto) 0.1 x10^3/uL (0.0-0.7) Basophils # (Auto) 0.1 x10^3/uL (0.0-0.2) Platelet Estimate Adequate (ADEQUATE) Polychromasia Slight Hypochromasia Slight Anisocytosis Mod Sodium Level 140 mmol/L (136-145) Potassium Level 4.2 mmol/L (3.5-5.1) Chloride Level 104 mmol/L (98-107) Carbon Dioxide Level 26 mmol/L (21-32) Anion Gap 10 (6-14) Blood Urea Nitrogen 9 mg/dL (7-20) Creatinine 0.9 mg/dL (0.6-1.0) Estimated GFR (Cockcroft-Gault) 86.2 Glucose Level 89 mg/dL (70-99) Calcium Level 9.5 mg/dL (8.5-10.1) Total Bilirubin 0.3 mg/dL (0.2-1.0) Direct Bilirubin 0.1 mg/dL (0.0-0.2) Aspartate Amino Transf (AST/SGOT) 14 U/L (15-37) Alanine Aminotransferase (ALT/SGPT) 13 U/L (14-59) Alkaline Phosphatase 44 U/L (46-116) Creatine Kinase 38 U/L (26-192) Creatine Kinase MB (Mass) < 0.5 ng/mL (0.0-3.6) Creatine Kinase MB Relative Index 1.3 % (0-4) Troponin I Quantitative < 0.017 ng/mL (0.000-0.055) < 0.017 ng/mL (0.000-0.055) < 0.017 ng/mL (0.000-0.055) XJ-Ncp-B-Type Natriuretic Peptide 40 pg/mL (0-124) Total Protein 7.3 g/dL (6.4-8.2) Albumin 3.7 g/dL (3.4-5.0) Lipase 175 U/L (73-393) Magnesium Level 1.7 mg/dL (1.8-2.4) Triglycerides Level 40 mg/dL (0-150) Cholesterol Level 166 mg/dL (0-200) LDL Cholesterol, Calculated 103 mg/dL (0-100) VLDL Cholesterol, Calculated 8 mg/dL (0-40) Non-HDL Cholesterol Calculated 111 mg/dL (0-129) HDL Cholesterol 55 mg/dL (40-60) Cholesterol/HDL Ratio 3.0 Medications Current Medications Aspirin (Children'S Aspirin) 324 mg 1X ONCE PO Last administered on t 16:12; Start 03/11/17 at 16:00; Stop 03/11/17 at 16:01; Status DC Fentanyl Citrate (Fentanyl 2ml Vial) 50 mcg PRN Q15MIN PRN IV PAIN GREATER THAN 3/10; Start 03/11/17 at 15:45; Stop 03/11/17 at 15:45; Status DC Acetaminophen (Tylenol) 650 mg 1X ONCE PO Last administered on 03/11/17 16: 12; Start 03/11/17 at 16:00; Stop 03/11/17 at 19:05; Status DC Iohexol (Omnipaque 300 Mg/ml) 75 ml 1X ONCE IV ; Start 03/11/17 at 16:30; Stop 03/11/17 at 16:31; Status DC Info (Do NOT chart on this entry -- for MONITORING) 1 each PRN DAILY PRN MC SEE COMMENTS; Start 03/11/17 at 16:15; Stop 03/13/17 at 16:14 Ondansetron HCl (Zofran) 4 mg PRN Q8HRS PRN IV NAUSEA/VOMITING; Start at 17:30; Stop 03/12/17 at 17:29 Sodium Chloride 1,000 ml @ 125 mls/hr Q8H IV Last administered on 03/12/17 01:26; Start 03/11/17 at 17:26; Stop 03/12/17 at 17:25 Acetaminophen (Tylenol) 650 mg PRN Q4HRS PRN PO FEVER; Start 03/11/17 at 17:30 ; Stop 03/12/17 at 17:29 Tramadol HCl (Ultram) 50 mg PRN Q6HRS PRN PO PAIN Last administered on 21:42; Start 03/11/17 at 17:45 Ketorolac Tromethamine (Toradol) 15 mg PRN Q6HRS PRN IV PAIN; Start 03/11/17 at 17:45; Stop 03/16/17 at 17:44 Acetaminophen (Tylenol) 650 mg QID PO Last administered on 03/12/17 10:59; Start 03/11/17 at 21:00 Alprazolam (Xanax) 0.25 mg PRN Q8HRS PRN PO ANXIETY / AGITATION Last administered on 03/12/17 10:59; Start 03/11/17 at 17:45 Aspirin (Children'S Aspirin) 81 mg DAILY PO Last administered on 03/12/17 10: 56; Start 03/12/17 at 09:00 Atorvastatin Calcium (Lipitor) 20 mg QHS PO ; Start 03/11/17 at 21:00 Fluticasone Propionate (Flonase) 2 spray DAILY NS Last administered on 10:56; Start 03/12/17 at 09:00 Lorazepam (Ativan) 1 mg BID PO ; Start 03/11/17 at 21:00; Stop 03/11/17 at 21: 00; Status DC Metoprolol Tartrate (Lopressor) 12.5 mg BID PO ; Start 03/11/17 at 21:00 Pantoprazole Sodium (Protonix) 40 mg DAILYAC PO Last administered on 10:56; Start 03/12/17 at 07:30 Citalopram Hydrobromide (CeleXA) 20 mg DAILY PO ; Start 03/12/17 at 09:00; Stop 03/12/17 at 09:00; Status DC Magnesium Sulfate/ Dextrose 50 ml @ 25 mls/hr 1X ONCE IV ; Start 03/12/17 at 11:30; Stop 03/12/17 at 11:41; Status DC Active Scripts Active Tylenol (Acetaminophen) 325 Mg Tablet 1-2 Tab PO QID Fluticasone Propionate Nasal [place] (Fluticasone Propionate) 16 Gm [place].susp 2 [place] NS DAILY Atorvastatin Calcium 20 Mg Tablet 20 Mg PO QHS Reported Ferrous Sulfate 325 Mg Tablet 1 Tab PO DAILY Xanax (Alprazolam) 0.25 Mg Tablet 1 Tab PO Q8HRS PRN Protonix (Pantoprazole Sodium) 40 Mg Tablet.dr 40 Mg PO DAILY Aspirin 81 Mg Tab.chew 1 Tab PO DAILY Vitals/I & O Vital Sign - Last 24 Hours 03/11/17 03/11/17 03/11/17 03/11/17 15:24 16:14 18:03 19:05 Temp 98.8 98.5 98.8 98.5 Pulse 80 85 82 Resp 18 16 16 B/P (MAP) 121/78 (92) 119/62 (81) 127/76 (93) Pulse Ox 100 100 97 O2 Delivery Room Air Room Air Room Air Room Air 03/11/17 03/11/17 03/11/17/17/17 19:35 20:00 21:00 21:42 Temp 98.6 98.6 Pulse 66 66 Resp 18 B/P (MAP) 134/62 (86) 134/62 Pulse Ox 98 98 O2 Delivery Room Air Room Air Room Air 03/11/17 03/11/17 03/12/17 03/12/17 22:42 23:00 03:00 07:00 Temp 98.5 98.4 97.8 98.5 98.4 97.8 Pulse 64 63 85 Resp 18 18 20 B/P (MAP) 122/65 (84) 107/55 (72) 114/58 (76) Pulse Ox 100 100 100 100 O2 Delivery Room Air Room Air Room Air Room Air 03/12/17 03/12/17 08:00 11:00 Temp 98.8 98.8 Pulse 72 Resp 16 B/P (MAP) 126/78 (94) Pulse Ox 100 O2 Delivery Room Air Room Air SANJUANITA VALENCIA III DO Mar 12, 2017 13:29
[2017-03-12 15:00] VITALS: BP 115/67
--- NOTE | 2017-03-12 15:26 | RAD ---
EXAM: Pelvic ultrasound HISTORY: Menorrhagia. COMPARISON: None. FINDINGS: Sonographic evaluation of the pelvis was performed transabdominally. The uterus is anteverted and measures 9.2 x 5.1 x 5.0 cm. The endometrial stripe measures 12 mm. No masses are identified. There is no significant free fluid. The right ovary measures 4.6 x 2.9 x 2.8 cm. The left ovary measures 4.1 x 2.1 x 1.7 cm. There is normal Doppler flow bilaterally. There are no suspicious lesions. IMPRESSION: 1. Endometrial thickness is 12 mm. This is within normal limits in premenopausal patient. Correlate with phase of menstrual cycle.
--- NOTE | 2017-03-12 17:39 | PDOC2 ---
CONSULT Date of Consult Date of Consult DATE: 03/12/17 TIME: 17:35 Reason for Consult Reason for Consult: Chest pain Referring Physician Referring Physician: Dr. Mares Identification/Chief Complaint Chief Complaint chest pain Problems: Source Source: Patient History of Present Illness Reason for Visit: 37 y/o presented to ED with c/o chest pain. She also has heavy menses for past 10 years with passage of large blood clots. Menses every 30 days, lasts 5 days with heavy flow and blood clots. She has h/o BTL and c/s x 1. Past Medical History Cardiovascular: Hyperlipidemia, Other Pulmonary: Asthma CENTRAL NERVOUS SYSTEM: CVA GI: GERD Heme/Onc: No pertinent hx Hepatobiliary: No pertinent hx Psych: Anxiety Rheumatologic: No pertinent hx Infectious disease: No pertinent hx Renal/: No pertinent hx Endocrine: No pertinent hx Past Surgical History Past Surgical History: , Tubal Ligation Family History Family History: Hypertension, Other Social History No ALCOHOL: none Drugs: None Lives: with Family Current Medications Current Medications Current Medications Aspirin (Children'S Aspirin) 324 mg 1X ONCE PO Last administered on 16:12; Start 03/11/17 at 16:00; Stop 03/11/17 at 16:01; Status DC Fentanyl Citrate (Fentanyl 2ml Vial) 50 mcg PRN Q15MIN PRN IV PAIN GREATER THAN 3/10; Start 03/11/17 at 15:45; Stop 03/11/17 at 15:45; Status DC Acetaminophen (Tylenol) 650 mg 1X ONCE PO Last administered on 03/11/17 16: 12; Start 03/11/17 at 16:00; Stop 03/11/17 at 19:05; Status DC Iohexol (Omnipaque 300 Mg/ml) 75 ml 1X ONCE IV ; Start 03/11/17 at 16:30; Stop 03/11/17 at 16:31; Status DC Info (Do NOT chart on this entry -- for MONITORING) 1 each PRN DAILY PRN MC SEE COMMENTS; Start 03/11/17 at 16:15; Stop 03/13/17 at 16:14 Ondansetron HCl (Zofran) 4 mg PRN Q8HRS PRN IV NAUSEA/VOMITING; Start at 17:30; Stop 03/12/17 at 17:29; Status DC Sodium Chloride 1,000 ml @ 125 mls/hr Q8H IV Last administered on 03/12/17 01:26; Start 03/11/17 at 17:26; Stop 03/12/17 at 17:25; Status DC Acetaminophen (Tylenol) 650 mg PRN Q4HRS PRN PO FEVER; Start 03/11/17 at 17:30 ; Stop 03/12/17 at 17:29; Status DC Tramadol HCl (Ultram) 50 mg PRN Q6HRS PRN PO PAIN Last administered on 21:42; Start 03/11/17 at 17:45 Ketorolac Tromethamine (Toradol) 15 mg PRN Q6HRS PRN IV PAIN; Start 03/11/17 at 17:45; Stop 03/16/17 at 17:44 Acetaminophen (Tylenol) 650 mg QID PO Last administered on 03/12/17 10:59; Start 03/11/17 at 21:00 Alprazolam (Xanax) 0.25 mg PRN Q8HRS PRN PO ANXIETY / AGITATION Last administered on 03/12/17 10:59; Start 03/11/17 at 17:45 Aspirin (Children'S Aspirin) 81 mg DAILY PO Last administered on 03/12/17 10: 56; Start 03/12/17 at 09:00 Atorvastatin Calcium (Lipitor) 20 mg QHS PO ; Start 03/11/17 at 21:00 Fluticasone Propionate (Flonase) 2 spray DAILY NS Last administered on 10:56; Start 03/12/17 at 09:00 Lorazepam (Ativan) 1 mg BID PO ; Start 03/11/17 at 21:00; Stop 03/11/17 at 21: 00; Status DC Metoprolol Tartrate (Lopressor) 12.5 mg BID PO ; Start 03/11/17 at 21:00 Pantoprazole Sodium (Protonix) 40 mg DAILYAC PO Last administered on 10:56; Start 03/12/17 at 07:30 Citalopram Hydrobromide (CeleXA) 20 mg DAILY PO ; Start 03/12/17 at 09:00; Stop 03/12/17 at 09:00; Status DC Magnesium Sulfate/ Dextrose 50 ml @ 25 mls/hr 1X ONCE IV ; Start 03/12/17 at 11:30; Stop 03/12/17 at 11:41; Status DC Active Scripts Active Tylenol (Acetaminophen) 325 Mg Tablet 1-2 Tab PO QID Fluticasone Propionate Nasal [place] (Fluticasone Propionate) 16 Gm [place].susp 2 [place] NS DAILY Atorvastatin Calcium 20 Mg Tablet 20 Mg PO QHS Reported Ferrous Sulfate 325 Mg Tablet 1 Tab PO DAILY Xanax (Alprazolam) 0.25 Mg Tablet 1 Tab PO Q8HRS PRN Protonix (Pantoprazole Sodium) 40 Mg Tablet.dr 40 Mg PO DAILY Aspirin 81 Mg Tab.chew 1 Tab PO DAILY Allergies Allergies: Coded Allergies: diphenhydramine (Verified Allergy, Severe, 02/04/17) SVT morphine (Verified Allergy, Severe, shortness of breath, 02/04/17) amoxicillin (Verified Allergy, Intermediate, hives, 02/04/17) clindamycin (Verified Allergy, Intermediate, 02/06/17) doxycycline (Verified Allergy, Intermediate, 02/06/17) hydrocodone (Verified Allergy, Intermediate, HIVES, tolerates Percocet, 05/11) ibuprofen (Verified Allergy, Intermediate, HIVES,tolerates aspirin, ) ROS General: YES: Fatigue, No: Chills, Night Sweats, Malaise, Appetite, Other PSYCHOLOGICAL ROS: No: Anxiety, Behavioral Disorder, Concentration difficultie , Decreased libido, Depression, Disorientation, Hallucinations, Hostility, Irritablity, Memory difficulties, Mood Swings, Obsessive thoughts, Physical abuse, Sexual abuse, Sleep disturbances, Suicidal ideation, Other Eyes: No Blurry vision, No Decreased vision, No Double vision, No Dry eyes, No Excessive tearing, No Eye Pain, No Itchy Eyes, No Loss of vision, No Photophobia , No Scotomata, No Uses contacts, No Uses glasses, No Other HEENT: No: Heacaches, Visual Changes, Hearing change, Nasal congestion, Nasal discharge, Oral lesions, Sinus pain, Sore Throat, Epistaxis, Sneezing, Snoring, Tinnitus, Vertigo, Vocal changes, Other ALLERGY AND IMMUNOLOGY: No: Hives, Insect Bite Sensitivity, Itchy/Watery Eyes, Nasal Congestion, Post Nasal Drip, Seasonal Allergies, Other Hematological and Lymphatic: No: Bleeding Problems, Blood Clots, Blood Transfusions, Brusing, Night Sweats, Pallor, Swollen Lymph Nodes, Other ENDOCRINE: No: Breast Changes, Galactorrhea, Hair Pattern Changes, Hot Flashes , Malaise/lethargy, Mood Swings, Palpitations, Polydipsia/polyuria, Skin Changes , Temperature Intolerance, Unexpected Weight Changes, Other Breast: No New/Changing Breast Lumps, No Nipple changes, No Nipple discharge, No Other Respiratory: YES: SOB with excertion (upon arrival but has since resolved.), No: Cough, Hemoptysis, Orthopnea, Pleuritic Pain, Shortness of breath, Sputum Changes, Stridor, Tachypnea, Wheezing, Other Cardiovascular: yes Chest Pain (on arrival, but has since resolved), No Palpitations, No Orthopnea, No Paroxysmal Noc. Dyspnea, No Edema, No Lt Headedness, No Other Gastrointestinal: No Nausea, No Vomiting, No Abdominal Pain, No Diarrhea, No Constipation, No Melena, No Hematochezia, No Other Genitourinary: No Dysuria, No Frequency, No Incontinence, No Hematuria, No Retention, No Discharge, No Urgency, No Pain, No Flank Pain, No Other, No , No , No , No , No , No , No Musculoskeletal: No Gait Disturbance, No Joint Pain, No Joint Stiffness, No Joint Swelling, No Muscle Pain, No Muscular Weakness, No Pain In:, No Swelling In:, No Other Physical Exam General: Alert, Oriented X3, Cooperative HEENT: Atraumatic Lungs: Clear to auscultation Heart: Regular rate Abdomen: Normal bowel sounds, Soft, No tenderness, No masses Extremities: No edema Psych/Mental Status: Mental status NL Vitals VITALS Vital Signs Date Time Temp Pulse Resp B/P (MAP) Pulse Ox O2 Delivery O2 Flow Rate FiO2 03/12/17 15:00 99.0 78 18 115/67 (83) 98 99.0 03/12/17 11:00 Room Air Labs Labs Laboratory Tests Test 03/11/17 15:45 03/11/17 16:15 03/11/17 23:15 03/12/17 04:45 White Blood Count 4.2 x10^3/uL (4.0-11.0) Red Blood Count 3.88 x10^6/uL (3.50-5.40) Hemoglobin 10.2 g/dL (12.0-15.5) Hematocrit 31.6 % (36.0-47.0) Mean Corpuscular Volume 82 fL (79-100) Mean Corpuscular Hemoglobin 26 pg (25-35) Mean Corpuscular Hemoglobin Concent 32 g/dL (31-37) Red Cell Distribution Width 21.3 % (11.5-14.5) Platelet Count 396 x10^3/uL (140-400) Neutrophils (%) (Auto) 45 % (31-73) Lymphocytes (%) (Auto) 41 % (24-48) Monocytes (%) (Auto) 10 % (0-9) Eosinophils (%) (Auto) 1 % (0-3) Basophils (%) (Auto) 2 % (0-3) Neutrophils # (Auto) 1.9 x10^3uL (1.8-7.7) Lymphocytes # (Auto) 1.7 x10^3/uL (1.0-4.8) Monocytes # (Auto) 0.4 x10^3/uL (0.0-1.1) Eosinophils # (Auto) 0.1 x10^3/uL (0.0-0.7) Basophils # (Auto) 0.1 x10^3/uL (0.0-0.2) Platelet Estimate Adequate (ADEQUATE) Polychromasia Slight Hypochromasia Slight Anisocytosis Mod Sodium Level 140 mmol/L (136-145) Potassium Level 4.2 mmol/L (3.5-5.1) Chloride Level 104 mmol/L (98-107) Carbon Dioxide Level 26 mmol/L (21-32) Anion Gap 10 (6-14) Blood Urea Nitrogen 9 mg/dL (7-20) Creatinine 0.9 mg/dL (0.6-1.0) Estimated GFR (Cockcroft-Gault) 86.2 Glucose Level 89 mg/dL (70-99) Calcium Level 9.5 mg/dL (8.5-10.1) Total Bilirubin 0.3 mg/dL (0.2-1.0) Direct Bilirubin 0.1 mg/dL (0.0-0.2) Aspartate Amino Transf (AST/SGOT) 14 U/L (15-37) Alanine Aminotransferase (ALT/SGPT) 13 U/L (14-59) Alkaline Phosphatase 44 U/L (46-116) Creatine Kinase 38 U/L (26-192) Creatine Kinase MB (Mass) < 0.5 ng/mL (0.0-3.6) Creatine Kinase MB Relative Index 1.3 % (0-4) Troponin I Quantitative < 0.017 ng/mL (0.000-0.055) < 0.017 ng/mL (0.000-0.055) < 0.017 ng/mL (0.000-0.055) QS-Kxf-J-Type Natriuretic Peptide 40 pg/mL (0-124) Total Protein 7.3 g/dL (6.4-8.2) Albumin 3.7 g/dL (3.4-5.0) Lipase 175 U/L (73-393) Magnesium Level 1.7 mg/dL (1.8-2.4) Triglycerides Level 40 mg/dL (0-150) Cholesterol Level 166 mg/dL (0-200) LDL Cholesterol, Calculated 103 mg/dL (0-100) VLDL Cholesterol, Calculated 8 mg/dL (0-40) Non-HDL Cholesterol Calculated 111 mg/dL (0-129) HDL Cholesterol 55 mg/dL (40-60) Cholesterol/HDL Ratio 3.0 Laboratory Tests Test 03/11/17 23:15 03/12/17 04:45 Troponin I Quantitative < 0.017 ng/mL (0.000-0.055) < 0.017 ng/mL (0.000-0.055) Magnesium Level 1.7 mg/dL (1.8-2.4) Triglycerides Level 40 mg/dL (0-150) Cholesterol Level 166 mg/dL (0-200) LDL Cholesterol, Calculated 103 mg/dL (0-100) VLDL Cholesterol, Calculated 8 mg/dL (0-40) Non-HDL Cholesterol Calculated 111 mg/dL (0-129) HDL Cholesterol 55 mg/dL (40-60) Cholesterol/HDL Ratio 3.0 Assessment/Plan Assessment/Plan A: AUB P: No current vaginal bleeding. Pelvic sono was negative. Will see in clinic in 2 weeks. Thank you for consult. REINALDO SANTOS Jr, MD Mar 12, 2017 17:39
--- NOTE | 2017-03-13 11:49 | DS ---
DATE OF DISCHARGE: 03/12/2017 DATE OF ADMISSION: 03/11/2017 DATE OF DISCHARGE: 03/12/2017 ADMISSION DIAGNOSIS: Chest pain. DISCHARGE DIAGNOSIS: 1. Atypical chest pain, suspect stress induced. 2. Fibromyalgia. HOSPITAL COURSE: The patient is a pleasant 37-year-old female who once again presented with chest pain. We did a full cardiac workup, we consulted Cardiology, her workup is negative. We plan to discharge. We suspect she has fibromyalgia and maybe even reflux. DISPOSITION: Home. ACTIVITY: As tolerated. DIET: Low sodium. MEDICATIONS: Please see the MRAD. TOTAL TIME: 34 minutes. KLAUDIAL Dustin VALENCIA DO DR: YEMI/william JOB#: [id number] / [id number]
== END 2017-03-12 18:00 | disposition home or self-care (01) | DRG 313 ==
LOC: ER 15:16 → 2 NORTH 16:53
PROVIDERS: ADMIT Internal Medicine; ATTEND Internal Medicine
DX: R07.89 Other chest pain (principal); E83.42 Hypomagnesemia; I47.1 Supraventricular tachycardia; D64.9 Anemia, unspecified; E78.5 Hyperlipidemia, unspecified; F41.9 Anxiety disorder, unspecified; I48.91 Unspecified atrial fibrillation; J45.909 Unspecified asthma, uncomplicated; K21.9 Gastro-esophageal reflux disease without esophagitis; M79.7 Fibromyalgia; Z82.3 Family history of stroke; Z82.49 Family history of ischemic heart disease and other diseases of the circulatory system; Z86.73 Personal history of transient ischemic attack (TIA), and cerebral infarction without residual deficits; Z98.51 Tubal ligation status; Z88.1 Allergy status to other antibiotic agents; Z88.5 Allergy status to narcotic agent; Z88.8 Allergy status to other drugs, medicaments and biological substances; R42 Dizziness and giddiness
CPT/HCPCS: 36415; 71010; 76856; 80048; 80061; 80076; 82553; 83690; 83735; 83880; 84484; 85025; 93005; J7030; J7060; 99285-25

== ENCOUNTER 2017-03-19 13:11 | Emergency (ER) | payer BC ==
[~2017-03-19] VITALS: Ht 170.2 cm; Wt 57.6 kg
[~2017-03-19 13:11] MED LIST changes: +FERR-26 PO
--- NOTE | 2017-03-19 13:45 | EKG ---
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
[2017-03-19 13:47] LABS: BASO % 1 % (0-3); EOS % 1 % (0-3); HEMOGLOBIN 10.5 g/dL (12.0-15.5); LYMPH # 1.2 x10^3/uL (1.0-4.8); LYMPH % 39 % (24-48); MEAN CORPUSCULAR HEMOGLOBIN 26 pg (25-35); MEAN CORPUSCULAR HGB CONC 32 g/dL (31-37); MEAN CORPUSCULAR VOLUME 83 fL (79-100); MONO % 9 % (0-9); NEUT % 50 % (31-73); PLATELET COUNT 367 x10^3/uL (140-400); RED BLOOD COUNT 3.97 x10^6/uL (3.50-5.40); RED CELL DISTRIBUTION WIDTH 21.2 % (11.5-14.5); WHITE BLOOD COUNT 3.1 x10^3/uL (4.0-11.0)
[2017-03-19 13:59] LABS: POTASSIUM ISTAT 3.2 mmol/L (3.5-5.0)
--- NOTE | 2017-03-19 14:07 | PHYS DOC ---
Past Medical History Past Medical History: A-Fib, CVA Additional Past Medical Histor: PFO, CVA 2015; SVT Past Surgical History: Tubal ligation Alcohol Use: None Drug Use: None Adult General Chief Complaint Chief Complaint: CHEST PAIN HPI HPI Patient is a 37 year old female who presents with generalized fatigue, heart palpitations. Intermittent moving pain in chest described as "aches in my ribs " with cough or deep breaths. Pt reports heavy periods, last period 1 week ago. pt recently hospitalized for the same symptoms, large workup grossly normal. pt has PFO and see's Dr. Edgar. Pt's had multiple hosplizations for similar complaints in recent weeks, extensive evaluations had not shown significant abnormalities. dx'd with afib at and started on cardizem. Pt also evaluated by Dr. Regalado and planned to have f/u in 2 weeks. Review of Systems Review of Systems Constitutional: Denies fever or chills [] Eyes: Denies change in visual acuity, redness, or eye pain [] HENT: Denies nasal congestion or sore throat [] Respiratory: reports cough and shortness of breath [] Cardiovascular: palpitations GI: Denies abdominal pain, nausea, vomiting, bloody stools or diarrhea [] : Denies dysuria or hematuria [] Musculoskeletal: Denies back pain or joint pain [] Integument: Denies rash or skin lesions [] Neurologic: Denies headache, focal weakness or sensory changes [] Current Medications Current Medications Current Medications Medications (Trade) Dose Ordered Sig/Cassie Start Time Stop Time Status Last Admin Dose Admin Potassium Chloride (Klor-Con) 20 meq 1X ONCE 03/19/17 14:45 03/19/17 14:46 DC 03/19/17 14:47 20 MEQ Allergies Allergies Allergies Coded Allergies Type Severity Reaction Last Updated Verified diphenhydramine Allergy Severe 02/04/17 Yes morphine Allergy Severe shortness of breath 02/04/17 Yes amoxicillin Allergy Intermediate hives 02/04/17 Yes clindamycin Allergy Intermediate 02/06/17 Yes doxycycline Allergy Intermediate 02/06/17 Yes hydrocodone Allergy Intermediate HIVES, tolerates Percocet 02/04/17 Yes ibuprofen Allergy Intermediate HIVES,tolerates aspirin 02/04/17 Yes Physical Exam Physical Exam Constitutional: Well developed, well nourished, no acute distress, non-toxic appearance. [] HENT: Normocephalic, atraumatic, bilateral external ears normal, oropharynx moist, no oral exudates, nose normal. [] Eyes: PERRLA, EOMI, conjunctiva normal, no discharge. [] Neck: Normal range of motion, no tenderness, supple, no stridor. [] Cardiovascular:Heart rate regular with regular rhythm, no murmur [] Lungs & Thorax: Bilateral breath sounds clear to auscultation, no wheeze or crackles, ttp bilateral anterior chest, reproduces pain Abdomen: Bowel sounds normal, soft, no tenderness, no masses, no pulsatile masses. [] Skin: Warm, dry, no erythema, no rash. [] Back: No tenderness, no CVA tenderness. [] Extremities: No tenderness, no cyanosis, no clubbing, ROM intact, no edema.neg homens bilaterally Neurologic: Alert and oriented X 3, normal motor function, normal sensory function, no focal deficits noted. [] Psychologic: Affect normal, judgement normal, mood normal. [] Current Patient Data Vital Signs Vital Signs Date Time Temp Pulse Resp B/P (MAP) Pulse Ox O2 Delivery O2 Flow Rate FiO2 03/19/17 13:27 98.8 90 18 126/75 (92) 99 Room Air 98.8 Lab Values Laboratory Tests Test 03/19/17 13:38 03/19/17 13:40 03/19/17 13:49 03/19/17 13:53 POC Urine HCG, Qualitative Hcg negative (Negative) White Blood Count 3.1 x10^3/uL (4.0-11.0) L Red Blood Count 3.97 x10^6/uL (3.50-5.40) Hemoglobin 10.5 g/dL (12.0-15.5) L Hematocrit 33.0 % (36.0-47.0) L Mean Corpuscular Volume 83 fL (79-100) Mean Corpuscular Hemoglobin 26 pg (25-35) Mean Corpuscular Hemoglobin Concent 32 g/dL (31-37) Red Cell Distribution Width 21.2 % (11.5-14.5) H Platelet Count 367 x10^3/uL (140-400) Neutrophils (%) (Auto) 50 % (31-73) Lymphocytes (%) (Auto) 39 % (24-48) Monocytes (%) (Auto) 9 % (0-9) Eosinophils (%) (Auto) 1 % (0-3) Basophils (%) (Auto) 1 % (0-3) Neutrophils # (Auto) 1.6 x10^3uL (1.8-7.7) L Lymphocytes # (Auto) 1.2 x10^3/uL (1.0-4.8) Monocytes # (Auto) 0.3 x10^3/uL (0.0-1.1) Eosinophils # (Auto) 0.0 x10^3/uL (0.0-0.7) Basophils # (Auto) 0.0 x10^3/uL (0.0-0.2) Platelet Estimate Adequate (ADEQUATE) Polychromasia Slight Poikilocytosis Slight Anisocytosis Mod Target Cells Occ Ovalocytes Few Schistocytes Occ POC Troponin I 0.00 ng/ml (<0.08) POC Hemoglobin 11.6 g/dL (12-15) L POC Hematocrit 34 % (36-40) L POC Sodium 140 mmol/L (135-145) POC Potassium 3.2 mmol/L (3.5-5.0) L POC Chloride 102 mmol/L (98-110) POC Total CO2 28 mmol/L (23-32) Anion Gap 14 mmol/L (6-14) POC Blood Urea Nitrogen 6 mg/dL (8-26) L POC Creatinine 0.8 mg/dL (0.5-1.4) Glucose Level 135 mg/dL (70-99) H POC Ionized Calcium (Patricia) 1.31 mmol/L (1.13-1.32) Laboratory Tests 03/19/17 13:40 Laboratory Tests 03/19/17 13:53 EKG EKG 97 bpm, sinus, normal axis, normal intervals, no ST elevation or depression, nonischemic T waves, interpreted by me[] Radiology/Procedures Radiology/Procedures Chest x-ray: Examination: 2 views of the chest History : chest pain, dizziness. Comparison : 03/11/2017 Findings: The cardiomediastinal silhouette grossly appears unremarkable. There is no acute infiltrate or visualized pneumothorax. Small granuloma identified in the right lower lobe of the lungs similar to prior exam. Impression: No acute cardiopulmonary findings. Course & Med Decision Making Course & Med Decision Making Pertinent Labs and Imaging studies reviewed. (See chart for details) After evaluating the patient I reviewed the patient's medical record. This is not so much different than her recent hospitalizations. Lab work, EKG, chest x- ray performed. Recent CTA of chest negative for PE and no h/o PE, pt is not tachy or hypoxic Pt's VSS, labs unremarkable with exception of my hypokamia. 20meq KCl given. 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 Return precautions given. Dragon Disclaimer Dragon Disclaimer This electronic medical record was generated, in whole or in part, using a voice recognition dictation system. Departure Departure Impression: Primary Impression: Palpitations Disposition: HOME, SELF-CARE Condition: STABLE Referrals: ALEXUS ROBLES (PCP) HEBER PENA MD Mar 19, 2017 14:07
--- NOTE | 2017-03-19 14:11 | RAD ---
Examination: 2 views of the chest History : chest pain, dizziness. Comparison : 03/11/2017 Findings: The cardiomediastinal silhouette grossly appears unremarkable. There is no acute infiltrate or visualized pneumothorax. Small granuloma identified in the right lower lobe of the lungs similar to prior exam. Impression: No acute cardiopulmonary findings.
[2017-03-19 14:24] LABS: ANISOCYTOSIS MOD; PLT ESTIMATE ADEQUATE (ADEQUATE)
[2017-03-19 14:25] LABS: POIKILOCYTOSIS SLIGHT
[2017-03-19 14:27] LABS: OVALOCYTES FEW; POLYCHROMASIA SLIGHT; SCHISTOCYTES OCC; TARGET CELLS OCC
[2017-03-19] MEDS ORDERED: POTASSIUM CHLORIDE 20 MEQ TABLET.ER. PO ONE (14:45)
[2017-03-19 14:52] VITALS: BP 120/78
== END 2017-03-19 14:56 | disposition home or self-care (01) ==
LOC: ER 13:11
DX: R00.2 Palpitations (principal); R53.83 Other fatigue; R06.02 Shortness of breath; R05 Cough; R07.81 Pleurodynia; I48.91 Unspecified atrial fibrillation; I47.1 Supraventricular tachycardia; Z86.73 Personal history of transient ischemic attack (TIA), and cerebral infarction without residual deficits; Z88.6 Allergy status to analgesic agent; Z88.1 Allergy status to other antibiotic agents; Z88.5 Allergy status to narcotic agent; Z88.8 Allergy status to other drugs, medicaments and biological substances
CPT/HCPCS: 36415; 71020; 80047; 81025; 84484; 85025; 93005; 99285-25

== ENCOUNTER 2017-04-25 12:31 | Inpatient (IN) | payer SELFPAY ==
[~2017-04-25] VITALS: Ht 170.2 cm; Wt 57.2 kg
--- NOTE | 2017-04-25 12:49 | PHYS DOC ---
Past Medical History Past Medical History: A-Fib, CVA Additional Past Medical Histor: PFO, CVA 2014; SVT Past Surgical History: Tubal ligation Alcohol Use: None Drug Use: None Adult General Chief Complaint Chief Complaint: CHEST PAIN HPI HPI Patient is a 37 year old and for can Russian female who presents with substernal chest pain that radiates into her left shoulder and left arm. She states it started last night. He Comes and goes. Sometimes made worse with turning. She does feel short of breath with this. She denies any nausea or diaphoresis. She was admitted about a month ago for chest discomfort and she states she did not get a Stress test done at that time. She states she's had a history of a stroke in the past, she has a PFO, fibromyalgia, SVT. Review of Systems Review of Systems Constitutional: Denies fever or chills [] Eyes: Denies change in visual acuity, redness, or eye pain [] HENT: Denies nasal congestion or sore throat [] Respiratory: Denies cough or shortness of breath [] Cardiovascular: No additional information not addressed in HPI [] GI: Denies abdominal pain, nausea, vomiting, bloody stools or diarrhea [] : Denies dysuria or hematuria [] Musculoskeletal: Denies back pain or joint pain [] Integument: Denies rash or skin lesions [] Neurologic: Denies headache, focal weakness or sensory changes [] Endocrine: Denies polyuria or polydipsia [] All other systems were reviewed and found to be within normal limits, except as documented in this note. Current Medications Current Medications Current Medications Medications (Trade) Dose Ordered Sig/Cassie Start Time Stop Time Status Last Admin Dose Admin Fentanyl Citrate (Fentanyl 2ml Vial) 50 mcg PRN Q15MIN PRN 04/25/17 14:15 04/26/17 14:14 Nitroglycerin (Nitrostat) 0.4 mg PRN Q5MIN PRN 04/25/17 13:00 04/26/17 12:59 Sodium Chloride 1,000 ml @ 1,000 mls/hr Q1H 04/25/17 12:53 04/25/17 13:52 DC 04/25/17 13:06 1,000 MLS/HR Allergies Allergies Allergies Coded Allergies Type Severity Reaction Last Updated Verified diphenhydramine Allergy Severe 02/04/17 Yes morphine Allergy Severe shortness of breath 9/12/17 Yes amoxicillin Allergy Intermediate hives 02/04/17 Yes clindamycin Allergy Intermediate 02/06/17 Yes doxycycline Allergy Intermediate 02/06/17 Yes hydrocodone Allergy Intermediate HIVES, tolerates Percocet 02/04/17 Yes ibuprofen Allergy Intermediate HIVES,tolerates aspirin 02/04/17 Yes Physical Exam Physical Exam Constitutional: Well developed, well nourished, no acute distress, non-toxic appearance. [] HENT: Normocephalic, atraumatic, bilateral external ears normal, oropharynx moist, no oral exudates, nose normal. [] Eyes: PERRLA, EOMI, conjunctiva normal, no discharge. [] Neck: Normal range of motion, no tenderness, supple, no stridor. [] Cardiovascular:Heart rate regular rhythm, no murmur [] Lungs & Thorax: Bilateral breath sounds clear to auscultation [] Abdomen: Bowel sounds normal, soft, no tenderness, no masses, no pulsatile masses. [] Skin: Warm, dry, no erythema, no rash. [] Back: No tenderness, no CVA tenderness. [] Extremities: No tenderness, no cyanosis, no clubbing, ROM intact, no edema. [] Neurologic: Alert and oriented X 3, normal motor function, normal sensory function, no focal deficits noted. [] Psychologic: Affect normal, judgement normal, mood normal. [] Current Patient Data Vital Signs Vital Signs Date Time Temp Pulse Resp B/P (MAP) Pulse Ox O2 Delivery O2 Flow Rate FiO2 04/25/17 12:56 98.3 82 16 128/69 (88) 100 Room Air 98.3 Lab Values Laboratory Tests Test 04/25/17 12:50 04/25/17 12:54 04/25/17 13:06 Urine Opiates Screen Neg (NEG) Urine Methadone Screen Neg (NEG) Urine Barbiturates Neg (NEG) Urine Phencyclidine Screen Neg (NEG) Urine Amphetamine/Methamphetamine Neg (NEG) Urine Benzodiazepines Screen Pos (NEG) Urine Cocaine Screen Neg (NEG) Urine Cannabinoids Screen Neg (NEG) Urine Ethyl Alcohol Neg (NEG) POC Urine HCG, Qualitative Hcg negative (Negative) White Blood Count 4.4 x10^3/uL (4.0-11.0) Red Blood Count 4.04 x10^6/uL (3.50-5.40) Hemoglobin 10.6 g/dL (12.0-15.5) L Hematocrit 33.2 % (36.0-47.0) L Mean Corpuscular Volume 82 fL (79-100) Mean Corpuscular Hemoglobin 26 pg (25-35) Mean Corpuscular Hemoglobin Concent 32 g/dL (31-37) Red Cell Distribution Width 20.2 % (11.5-14.5) H Platelet Count 309 x10^3/uL (140-400) Neutrophils (%) (Auto) 52 % (31-73) Lymphocytes (%) (Auto) 39 % (24-48) Monocytes (%) (Auto) 7 % (0-9) Eosinophils (%) (Auto) 1 % (0-3) Basophils (%) (Auto) 1 % (0-3) Neutrophils # (Auto) 2.3 x10^3uL (1.8-7.7) Lymphocytes # (Auto) 1.7 x10^3/uL (1.0-4.8) Monocytes # (Auto) 0.3 x10^3/uL (0.0-1.1) Eosinophils # (Auto) 0.0 x10^3/uL (0.0-0.7) Basophils # (Auto) 0.0 x10^3/uL (0.0-0.2) Platelet Estimate Adequate (ADEQUATE) Poikilocytosis Slight Anisocytosis Mod Microcytosis Ovalocytes Few Prothrombin Time 13.3 SEC (11.7-14.0) Prothrombin Time INR 1.1 (0.8-1.1) Sodium Level 137 mmol/L (136-145) Potassium Level 4.0 mmol/L (3.5-5.1) Chloride Level 103 mmol/L (98-107) Carbon Dioxide Level 25 mmol/L (21-32) Anion Gap 9 (6-14) Blood Urea Nitrogen 12 mg/dL (7-20) Creatinine 0.8 mg/dL (0.6-1.0) Estimated GFR (Cockcroft-Gault) 98.8 Glucose Level 94 mg/dL (70-99) Calcium Level 9.7 mg/dL (8.5-10.1) Magnesium Level 1.9 mg/dL (1.8-2.4) Total Bilirubin 0.3 mg/dL (0.2-1.0) Direct Bilirubin 0.1 mg/dL (0.0-0.2) Aspartate Amino Transferase (AST) 21 U/L (15-37) Alanine Aminotransferase (ALT) 17 U/L (14-59) Alkaline Phosphatase 42 U/L (46-116) L Creatine Kinase 212 U/L (26-192) H Creatine Kinase MB (Mass) < 0.5 ng/mL (0.0-3.6) Creatine Kinase MB Relative Index % (0-4) Troponin I Quantitative < 0.017 ng/mL (0.000-0.055) IA-Osb-K-Type Natriuretic Peptide 23 pg/mL (0-124) Total Protein 8.5 g/dL (6.4-8.2) H Albumin 4.2 g/dL (3.4-5.0) Lipase 97 U/L (73-393) Laboratory Tests 04/25/17 13:06 Laboratory Tests 04/25/17 13:06 EKG EKG EKG shows sinus rhythm with rate of [address] beats [address] without any ST elevations, T- wave inversions noted in lead 3, normal axis, incomplete right bundle branch morphology noted, QTC 433 ms, as interpreted by me. Radiology/Procedures Radiology/Procedures [facility] [address] [place], [place] [id number] IMAGING REPORT Signed PATIENT: NARA SEGUNDO ACCOUNT: [id number] : 1980 LOCATION: ER AGE: 37 SEX: F EXAM STATUS: REG ER ORD. PHYSICIAN: VLAD WU MD REASON: chest pain PROCEDURE: PORTABLE CHEST 1V Chest x-ray Indication: Chest pain and jaw pain. Technique: Portable AP upright chest x-ray Comparison: Study from 03/19/2017 Findings: Heart is normal in size. Lungs are clear. Stable calcified granuloma is seen in the right lower lung zone. No pneumothorax or pleural effusion. Visualized bony thorax within normal limits. Impression: No acute cardiopulmonary process. DICTATED and SIGNED BY: KARIN CHEEK DO DATE: 04/25/17 1402 CC: VLAD WU MD; ALEXUS ROBLES Impressions: Chest pain Fibromyalgia TIA Course & Med Decision Making Course & Med Decision Making Pertinent Labs and Imaging studies reviewed. (See chart for details) Patient has chest pain and refused nitroglycerin. Chest pain was concerning as it went down her left arm. Currently she is pain-free. She has received a full dose aspirin is being admitted for cardiology evaluation. She is agreeable plan. Dragon Disclaimer Dragon Disclaimer This electronic medical record was generated, in whole or in part, using a voice recognition dictation system. Departure Departure Impression: Primary Impression: Chest pain Disposition: ADMITTED INPATIENT Admitting Physician: Other Condition: STABLE Referrals: ALEXUS ROBLES (PCP) VLAD WU MD Apr 25, 2017 12:49
[2017-04-25] MEDS ORDERED: IV NORMAL SALINE 1000ML BAG 1,000 ML IV SCH (12:53)
[2017-04-25] MEDS ORDERED: NITROGLYCERIN SUBLINGUAL 0.4 MG BOTTLE OF 25. SL PRN (13:00)
--- NOTE | 2017-04-25 13:16 | EKG ---
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
[2017-04-25 13:24] LABS: BARBITURATES NEG (NEG); BENZODIAZEPINES POS (NEG); CANNABINOIDS NEG (NEG); COCAINE NEG (NEG); METHADONE NEG (NEG); OPIATES NEG (NEG); PHENCYCLIDINE NEG (NEG)
[2017-04-25 13:29] LABS: BASO % 1 % (0-3); EOS % 1 % (0-3); HEMATOCRIT 33.2 % (36.0-47.0); HEMOGLOBIN 10.6 g/dL (12.0-15.5); LYMPH # 1.7 x10^3/uL (1.0-4.8); LYMPH % 39 % (24-48); MEAN CORPUSCULAR HEMOGLOBIN 26 pg (25-35); MEAN CORPUSCULAR HGB CONC 32 g/dL (31-37); MEAN CORPUSCULAR VOLUME 82 fL (79-100); MONO % 7 % (0-9); NEUT % 52 % (31-73); PLATELET COUNT 309 x10^3/uL (140-400); RED BLOOD COUNT 4.04 x10^6/uL (3.50-5.40); RED CELL DISTRIBUTION WIDTH 20.2 % (11.5-14.5); WHITE BLOOD COUNT 4.4 x10^3/uL (4.0-11.0)
[2017-04-25 13:30] LABS: CALCIUM 9.7 mg/dL (8.5-10.1); CREATININE 0.8 mg/dL (0.6-1.0); GFR 98.8
[2017-04-25 13:36] LABS: ALBUMIN 4.2 g/dL (3.4-5.0); DIRECT BILIRUBIN 0.1 mg/dL (0.0-0.2); MAGNESIUM 1.9 mg/dL (1.8-2.4); TOTAL BILIRUBIN 0.3 mg/dL (0.2-1.0); TOTAL PROTEIN 8.5 g/dL (6.4-8.2)
[2017-04-25 13:42] LABS: INR 1.1 (0.8-1.1); PROTHROMBIN TIME PATIENT 13.3 SEC (11.7-14.0)
[2017-04-25 13:45] LABS: CKMB MASS < 0.5 ng/mL (0.0-3.6); CREATINE KINASE 212 U/L (26-192)
--- NOTE | 2017-04-25 14:06 | RAD ---
Chest x-ray Indication: Chest pain and jaw pain. Technique: Portable AP upright chest x-ray Comparison: Study from 03/19/2017 Findings: Heart is normal in size. Lungs are clear. Stable calcified granuloma is seen in the right lower lung zone. No pneumothorax or pleural effusion. Visualized bony thorax within normal limits. Impression: No acute cardiopulmonary process.
[2017-04-25 14:13] LABS: PLT ESTIMATE ADEQUATE (ADEQUATE)
[2017-04-25 14:14] LABS: ANISOCYTOSIS MOD
[2017-04-25 14:15] LABS: OVALOCYTES FEW; POIKILOCYTOSIS SLIGHT
[2017-04-25] MEDS ORDERED: fentaNYL PF VIAL 100 MCG/2 ML VIAL IV PRN (14:15)
[2017-04-25] MEDS ORDERED: ONDANSETRON PF 4 MG/2 ML VIAL. IV PRN (16:15)
[2017-04-25] MEDS ORDERED: ASPIRIN 325 MG TABLET PO ONE (16:15)
[2017-04-25 17:06] VITALS: BP 108/74
[2017-04-25] MEDS ORDERED: ACET325T9 PO (17:43)
[2017-04-25] MEDS ORDERED: CHOL500050 PO (17:43)
[2017-04-25 19:10] VITALS: BP 108/66
[2017-04-25 23:30] VITALS: BP 108/54
[2017-04-25] MEDS: ACETAMINOPHEN 325 MG TABLET. PO PRN (23:34)
[2017-04-25] MEDS: ALPRAZolam 0.5 MG TABLET PO PRN (23:34)
--- NOTE | 2017-04-26 00:10 | HP ---
ADMIT DATE: 04/25/2017 CHIEF COMPLAINT: Chest pain. HISTORY OF PRESENT ILLNESS: The patient is a 37-year-old woman with history of SVT, GERD, and anxiety, who presented to the Emergency Room with a left upper chest pain. She relates she has had this for the second day now and it gets worse when she pushes directly over her left upper anterior chest as well as over her shoulder and shoulder blade. She also has pain in her elbow and in her wrist on the left. Neck also has some pain on the left side, this, however, is chronic. The patient is concerned that something is going on with her heart, although is reassured that the cardiac pain should not be getting worse with direct pressure over her shoulder. PAST MEDICAL HISTORY: SVT, GERD, anxiety. PAST SURGICAL HISTORY: Tubal ligations. FAMILY HISTORY: Hypertension. SOCIAL HISTORY: , living with her . No toxic habits. ALLERGIES: Multiple including MORPHINE, IBUPROFEN, HYDROCODONE, DOXYCYCLINE, DIPHENHYDRAMINE, CLINDAMYCIN AND AMOXICILLIN. MEDICATIONS: MAR reconciled with home meds. REVIEW OF SYSTEMS: Positive as per HPI. Also, endorses some occasional lightheadedness, dizziness that she describes as having the sensation of falling forward. She is very concerned about GERD as well and according to her family is not eating enough. She describes eating several small meals a day and feels she is drinking enough fluids as well. Rest of organ system review is actually negative. PHYSICAL EXAMINATION: VITAL SIGNS: From today show vital signs with a blood pressure of 108/66, heart rate of 78, respiratory rate at 16. She is afebrile. GENERAL: This is a well-nourished 37-year-old woman, awake, alert, in no acute distress. HEENT: Shows no scleral icterus. NECK: Supple. Tenderness to palpation over the left shoulder, posterior neck, anterior and posterior left upper chest, no tenderness in the biceps or triceps. SKIN: Warm, soft and dry without any rash. LABORATORY DATA: CBC with a WBC of 4.4, hemoglobin 10.6, MCV of 82, platelet count of 309. Chemistries with a BUN and creatinine of 12 and 0.8, normal electrolytes, normal LFTs. Troponin is negative. Tox screen positive for benzos only. A urine with hCG negative. IMAGING: Chest x-ray from today shows no acute cardiopulmonary process. ASSESSMENT AND PLAN: The patient is a 37-year-old woman with gastroesophageal reflux disease, supraventricular tachycardia, now presenting with left upper shoulder pain, reaching down into her upper chest, both anteriorly and posteriorly. With this being worse with direct palpation or deep breathing, I have serious doubts that this is anginal. Nevertheless, I will obtain a second troponin to rule this out. My suspicion is that this is musculoskeletal, possibly a pinched nerve. We will obtain an MRI of her neck to evaluate. For now, will give her a heating pad, pain medications p.r.n. For her anxiety, her Xanax will be continued. Krisho for her PPI for gastroesophageal reflux disease. AILEEN ISAAC MD DR: UR/nts JOB#: [id number] / [id number] PERNELL
[2017-04-26 03:32] VITALS: BP 97/60
[2017-04-26 05:28] LABS: BASO # 0.1 x10^3/uL (0.0-0.2); BASO % 1 % (0-3); EOS % 1 % (0-3); HEMATOCRIT 29.1 % (36.0-47.0); HEMOGLOBIN 9.1 g/dL (12.0-15.5); LYMPH # 1.6 x10^3/uL (1.0-4.8); LYMPH % 35 % (24-48); MEAN CORPUSCULAR HEMOGLOBIN 26 pg (25-35); MEAN CORPUSCULAR HGB CONC 31 g/dL (31-37); MEAN CORPUSCULAR VOLUME 83 fL (79-100); MONO % 8 % (0-9); NEUT % 54 % (31-73); PLATELET COUNT 263 x10^3/uL (140-400); RED BLOOD COUNT 3.51 x10^6/uL (3.50-5.40); RED CELL DISTRIBUTION WIDTH 20.6 % (11.5-14.5); WHITE BLOOD COUNT 4.7 x10^3/uL (4.0-11.0)
[2017-04-26 06:22] LABS: CALCIUM 9.5 mg/dL (8.5-10.1); CREATININE 0.8 mg/dL (0.6-1.0); GFR 98.8; POTASSIUM 3.9 mmol/L (3.5-5.1)
[2017-04-26 07:00] VITALS: BP 104/63
[2017-04-26] MEDS ORDERED: PANTOPRAZOLE 40 MG TABLET.DR. PO SCH ×2 (07:30→16:30)
--- NOTE | 2017-04-26 07:44 | CONS ---
DATE OF CONSULTATION: 04/26/2017 REASON FOR CONSULTATION: Chest pain. HISTORY OF PRESENT ILLNESS: The patient is a pleasant 37-year-old woman who comes into the hospital in the setting of chest pain. She reports that she had some chest discomfort which ultimately prompted arrival to the ER yesterday. Of note, she has been admitted to the hospital about 3 times over the course of the last year with recurrent chest pain, which has been deemed to be musculoskeletal in nature. In speaking with the family and her, it appears that she is suffering from anxiety and depression. She has had about 13-pound weight loss, poor appetite and in the setting of also having a recent diagnosis of gastritis and possible fibromyalgia. The patient denies any exertional angina, orthopnea, PND or lower extremity edema. She has not had any syncope, but appears to have some palpitations. PAST MEDICAL HISTORY: 1. PFO. 2. Possible cryptogenic stroke. SOCIAL HISTORY: The patient denies any alcohol, tobacco or illicit drug use. FAMILY HISTORY: Noncontributory. REVIEW OF SYSTEMS: Negative for 10 out of 14 systems reviewed, unless otherwise mentioned above in HPI. PHYSICAL EXAMINATION: VITAL SIGNS: Stable. HEAD AND NECK: Unremarkable. HEART: Regular rate and rhythm without murmurs, rubs or gallops. LUNGS: Clear to auscultation bilaterally. ABDOMEN: Soft, nontender, nondistended. EXTREMITIES: No clubbing, cyanosis or edema. NEUROLOGIC: No focal deficits. MUSCULOSKELETAL: No trauma. DIAGNOSTIC STUDIES: Normal laboratory panel which includes a negative cardiac enzymes x 2, with mild anemia of 9.1 and negative toxicology screen except for benzodiazepines. Previous nuclear stress test performed in 02/2016 reveals no acute pathology. Previous EKGs were unremarkable. EKG upon arrival to ER at this admission revealed sinus rhythm with no specific ST or T-wave changes. IMPRESSION: 1. Noncardiac chest pain. 2. Possible depression. 3. Possible fibromyalgia. RECOMMENDATIONS: 1. Consider increasing her PPI to b.i.d. given her significant GERD symptoms, which would also mimic cardiac issues. 2. If increasing her PPI to b.i.d. does not improve her symptoms, then we could consider outpatient evaluation with Renexa 3. She continues to have intermittent palpitations, which I suspect related to anxiety and probably does not need a loop monitor, but if she continues to have issues or has any recurrence of near syncopal events, we could implant outpatient loop recorder. Thank you for this consultation. The patient may be discharged from cardiac standpoint. CHEO CAREY MD DR: DIMITRIS/william JOB#: [id number] / [id number] PERNELL
[2017-04-26] MEDS ORDERED: ASPIRIN CHEWABLE 81 MG TABLET. PO SCH (09:00)
[2017-04-26] MEDS ORDERED: FLUTICASONE 50MCG/NASAL SPRAY 16GM BOTTLE. NS SCH (09:00)
[2017-04-26] MEDS ORDERED: FERROUS SULFATE 325 MG TABLET. PO SCH (09:00)
[2017-04-26] MEDS: ALPRAZolam 0.5 MG TABLET PO PRN (09:57)
[2017-04-26 10:51] VITALS: BP 109/66
--- NOTE | 2017-04-26 11:50 | PDOC ---
PROGRESS NOTES Chief Complaint Chief Complaint anxiety, depression gastroesophageal reflux disease, palpitations, prior supraventricular tachycardia, left upper shoulder pain, and neck pain History of Present Illness History of Present Illness MRI cervical spine pending try lidoderm patch to neck CV consult recommended increase PPI consult Dr. jones, f/u neck pain and MRI Vitals Vitals Vital Signs Date Time Temp Pulse Resp B/P (MAP) Pulse Ox O2 Delivery O2 Flow Rate FiO2 04/26/17 10:51 88 18 109/66 (80) 100 Room Air 04/26/17 07:00 99.0 99.0 Physical Exam General: Alert, Cooperative, No acute distress Heart: Regular rate Lungs: Clear, Other Abdomen: Soft Extremities: No clubbing Skin: No rashes Labs LABS Laboratory Tests Test 04/25/17 12:50 04/25/17 12:54 04/25/17 13:06 04/25/17 22:29 Urine Opiates Screen Neg (NEG) Urine Methadone Screen Neg (NEG) Urine Barbiturates Neg (NEG) Urine Phencyclidine Screen Neg (NEG) Urine Amphetamine/Methamphetamine Neg (NEG) Urine Benzodiazepines Screen Pos (NEG) Urine Cocaine Screen Neg (NEG) Urine Cannabinoids Screen Neg (NEG) Urine Ethyl Alcohol Neg (NEG) Bedside Urine HCG, Qualitative Hcg negative (Negative) White Blood Count 4.4 x10^3/uL (4.0-11.0) Red Blood Count 4.04 x10^6/uL (3.50-5.40) Hemoglobin 10.6 g/dL (12.0-15.5) Hematocrit 33.2 % (36.0-47.0) Mean Corpuscular Volume 82 fL (79-100) Mean Corpuscular Hemoglobin 26 pg (25-35) Mean Corpuscular Hemoglobin Concent 32 g/dL (31-37) Red Cell Distribution Width 20.2 % (11.5-14.5) Platelet Count 309 x10^3/uL (140-400) Neutrophils (%) (Auto) 52 % (31-73) Lymphocytes (%) (Auto) 39 % (24-48) Monocytes (%) (Auto) 7 % (0-9) Eosinophils (%) (Auto) 1 % (0-3) Basophils (%) (Auto) 1 % (0-3) Neutrophils # (Auto) 2.3 x10^3uL (1.8-7.7) Lymphocytes # (Auto) 1.7 x10^3/uL (1.0-4.8) Monocytes # (Auto) 0.3 x10^3/uL (0.0-1.1) Eosinophils # (Auto) 0.0 x10^3/uL (0.0-0.7) Basophils # (Auto) 0.0 x10^3/uL (0.0-0.2) Platelet Estimate Adequate (ADEQUATE) Poikilocytosis Slight Anisocytosis Mod Microcytosis Ovalocytes Few Prothrombin Time 13.3 SEC (11.7-14.0) Prothromb Time International Ratio 1.1 (0.8-1.1) Sodium Level 137 mmol/L (136-145) Potassium Level 4.0 mmol/L (3.5-5.1) Chloride Level 103 mmol/L (98-107) Carbon Dioxide Level 25 mmol/L (21-32) Anion Gap 9 (6-14) Blood Urea Nitrogen 12 mg/dL (7-20) Creatinine 0.8 mg/dL (0.6-1.0) Estimated GFR (Cockcroft-Gault) 98.8 Glucose Level 94 mg/dL (70-99) Calcium Level 9.7 mg/dL (8.5-10.1) Magnesium Level 1.9 mg/dL (1.8-2.4) Total Bilirubin 0.3 mg/dL (0.2-1.0) Direct Bilirubin 0.1 mg/dL (0.0-0.2) Aspartate Amino Transf (AST/SGOT) 21 U/L (15-37) Alanine Aminotransferase (ALT/SGPT) 17 U/L (14-59) Alkaline Phosphatase 42 U/L (46-116) Creatine Kinase 212 U/L (26-192) Creatine Kinase MB (Mass) < 0.5 ng/mL (0.0-3.6) Creatine Kinase MB Relative Index % (0-4) Troponin I Quantitative < 0.017 ng/mL (0.000-0.055) < 0.017 ng/mL (0.000-0.055) YT-Mrd-L-Type Natriuretic Peptide 23 pg/mL (0-124) Total Protein 8.5 g/dL (6.4-8.2) Albumin 4.2 g/dL (3.4-5.0) Lipase 97 U/L (73-393) Test 04/26/17 04:30 04/26/17 07:18 White Blood Count 4.7 x10^3/uL (4.0-11.0) Red Blood Count 3.51 x10^6/uL (3.50-5.40) Hemoglobin 9.1 g/dL (12.0-15.5) Hematocrit 29.1 % (36.0-47.0) Mean Corpuscular Volume 83 fL (79-100) Mean Corpuscular Hemoglobin 26 pg (25-35) Mean Corpuscular Hemoglobin Concent 31 g/dL (31-37) Red Cell Distribution Width 20.6 % (11.5-14.5) Platelet Count 263 x10^3/uL (140-400) Neutrophils (%) (Auto) 54 % (31-73) Lymphocytes (%) (Auto) 35 % (24-48) Monocytes (%) (Auto) 8 % (0-9) Eosinophils (%) (Auto) 1 % (0-3) Basophils (%) (Auto) 1 % (0-3) Neutrophils # (Auto) 2.5 x10^3uL (1.8-7.7) Lymphocytes # (Auto) 1.6 x10^3/uL (1.0-4.8) Monocytes # (Auto) 0.4 x10^3/uL (0.0-1.1) Eosinophils # (Auto) 0.0 x10^3/uL (0.0-0.7) Basophils # (Auto) 0.1 x10^3/uL (0.0-0.2) Sodium Level 141 mmol/L (136-145) Potassium Level 3.9 mmol/L (3.5-5.1) Chloride Level 105 mmol/L (98-107) Carbon Dioxide Level 24 mmol/L (21-32) Anion Gap 12 (6-14) Blood Urea Nitrogen 10 mg/dL (7-20) Creatinine 0.8 mg/dL (0.6-1.0) Estimated GFR (Cockcroft-Gault) 98.8 Glucose Level 48 mg/dL (70-99) Calcium Level 9.5 mg/dL (8.5-10.1) Troponin I Quantitative < 0.017 ng/mL (0.000-0.055) Glucose (Fingerstick) 124 mg/dL (70-99) Assessment and Plan Assessmemt and Plan Problems Medical Problems: (1) Chest pain Status: Acute Problems: Comment Review of Relevant I have reviewed the following items janet (where applicable) has been applied. Labs Laboratory Tests Test 04/25/17 12:50 04/25/17 12:54 04/25/17 13:06 04/25/17 22:29 Urine Opiates Screen Neg (NEG) Urine Methadone Screen Neg (NEG) Urine Barbiturates Neg (NEG) Urine Phencyclidine Screen Neg (NEG) Urine Amphetamine/Methamphetamine Neg (NEG) Urine Benzodiazepines Screen Pos (NEG) Urine Cocaine Screen Neg (NEG) Urine Cannabinoids Screen Neg (NEG) Urine Ethyl Alcohol Neg (NEG) Bedside Urine HCG, Qualitative Hcg negative (Negative) White Blood Count 4.4 x10^3/uL (4.0-11.0) Red Blood Count 4.04 x10^6/uL (3.50-5.40) Hemoglobin 10.6 g/dL (12.0-15.5) Hematocrit 33.2 % (36.0-47.0) Mean Corpuscular Volume 82 fL (79-100) Mean Corpuscular Hemoglobin 26 pg (25-35) Mean Corpuscular Hemoglobin Concent 32 g/dL (31-37) Red Cell Distribution Width 20.2 % (11.5-14.5) Platelet Count 309 x10^3/uL (140-400) Neutrophils (%) (Auto) 52 % (31-73) Lymphocytes (%) (Auto) 39 % (24-48) Monocytes (%) (Auto) 7 % (0-9) Eosinophils (%) (Auto) 1 % (0-3) Basophils (%) (Auto) 1 % (0-3) Neutrophils # (Auto) 2.3 x10^3uL (1.8-7.7) Lymphocytes # (Auto) 1.7 x10^3/uL (1.0-4.8) Monocytes # (Auto) 0.3 x10^3/uL (0.0-1.1) Eosinophils # (Auto) 0.0 x10^3/uL (0.0-0.7) Basophils # (Auto) 0.0 x10^3/uL (0.0-0.2) Platelet Estimate Adequate (ADEQUATE) Poikilocytosis Slight Anisocytosis Mod Microcytosis Ovalocytes Few Prothrombin Time 13.3 SEC (11.7-14.0) Prothromb Time International Ratio 1.1 (0.8-1.1) Sodium Level 137 mmol/L (136-145) Potassium Level 4.0 mmol/L (3.5-5.1) Chloride Level 103 mmol/L (98-107) Carbon Dioxide Level 25 mmol/L (21-32) Anion Gap 9 (6-14) Blood Urea Nitrogen 12 mg/dL (7-20) Creatinine 0.8 mg/dL (0.6-1.0) Estimated GFR (Cockcroft-Gault) 98.8 Glucose Level 94 mg/dL (70-99) Calcium Level 9.7 mg/dL (8.5-10.1) Magnesium Level 1.9 mg/dL (1.8-2.4) Total Bilirubin 0.3 mg/dL (0.2-1.0) Direct Bilirubin 0.1 mg/dL (0.0-0.2) Aspartate Amino Transf (AST/SGOT) 21 U/L (15-37) Alanine Aminotransferase (ALT/SGPT) 17 U/L (14-59) Alkaline Phosphatase 42 U/L (46-116) Creatine Kinase 212 U/L (26-192) Creatine Kinase MB (Mass) < 0.5 ng/mL (0.0-3.6) Creatine Kinase MB Relative Index % (0-4) Troponin I Quantitative < 0.017 ng/mL (0.000-0.055) < 0.017 ng/mL (0.000-0.055) AR-Izq-D-Type Natriuretic Peptide 23 pg/mL (0-124) Total Protein 8.5 g/dL (6.4-8.2) Albumin 4.2 g/dL (3.4-5.0) Lipase 97 U/L (73-393) Test 04/26/17 04:30 04/26/17 07:18 White Blood Count 4.7 x10^3/uL (4.0-11.0) Red Blood Count 3.51 x10^6/uL (3.50-5.40) Hemoglobin 9.1 g/dL (12.0-15.5) Hematocrit 29.1 % (36.0-47.0) Mean Corpuscular Volume 83 fL (79-100) Mean Corpuscular Hemoglobin 26 pg (25-35) Mean Corpuscular Hemoglobin Concent 31 g/dL (31-37) Red Cell Distribution Width 20.6 % (11.5-14.5) Platelet Count 263 x10^3/uL (140-400) Neutrophils (%) (Auto) 54 % (31-73) Lymphocytes (%) (Auto) 35 % (24-48) Monocytes (%) (Auto) 8 % (0-9) Eosinophils (%) (Auto) 1 % (0-3) Basophils (%) (Auto) 1 % (0-3) Neutrophils # (Auto) 2.5 x10^3uL (1.8-7.7) Lymphocytes # (Auto) 1.6 x10^3/uL (1.0-4.8) Monocytes # (Auto) 0.4 x10^3/uL (0.0-1.1) Eosinophils # (Auto) 0.0 x10^3/uL (0.0-0.7) Basophils # (Auto) 0.1 x10^3/uL (0.0-0.2) Sodium Level 141 mmol/L (136-145) Potassium Level 3.9 mmol/L (3.5-5.1) Chloride Level 105 mmol/L (98-107) Carbon Dioxide Level 24 mmol/L (21-32) Anion Gap 12 (6-14) Blood Urea Nitrogen 10 mg/dL (7-20) Creatinine 0.8 mg/dL (0.6-1.0) Estimated GFR (Cockcroft-Gault) 98.8 Glucose Level 48 mg/dL (70-99) Calcium Level 9.5 mg/dL (8.5-10.1) Troponin I Quantitative < 0.017 ng/mL (0.000-0.055) Glucose (Fingerstick) 124 mg/dL (70-99) Laboratory Tests Test 04/25/17 12:50 04/25/17 12:54 04/25/17 13:06 04/25/17 22:29 Urine Opiates Screen Neg (NEG) Urine Methadone Screen Neg (NEG) Urine Barbiturates Neg (NEG) Urine Phencyclidine Screen Neg (NEG) Urine Amphetamine/Methamphetamine Neg (NEG) Urine Benzodiazepines Screen Pos (NEG) Urine Cocaine Screen Neg (NEG) Urine Cannabinoids Screen Neg (NEG) Urine Ethyl Alcohol Neg (NEG) Bedside Urine HCG, Qualitative Hcg negative (Negative) White Blood Count 4.4 x10^3/uL (4.0-11.0) Red Blood Count 4.04 x10^6/uL (3.50-5.40) Hemoglobin 10.6 g/dL (12.0-15.5) Hematocrit 33.2 % (36.0-47.0) Mean Corpuscular Volume 82 fL (79-100) Mean Corpuscular Hemoglobin 26 pg (25-35) Mean Corpuscular Hemoglobin Concent 32 g/dL (31-37) Red Cell Distribution Width 20.2 % (11.5-14.5) Platelet Count 309 x10^3/uL (140-400) Neutrophils (%) (Auto) 52 % (31-73) Lymphocytes (%) (Auto) 39 % (24-48) Monocytes (%) (Auto) 7 % (0-9) Eosinophils (%) (Auto) 1 % (0-3) Basophils (%) (Auto) 1 % (0-3) Neutrophils # (Auto) 2.3 x10^3uL (1.8-7.7) Lymphocytes # (Auto) 1.7 x10^3/uL (1.0-4.8) Monocytes # (Auto) 0.3 x10^3/uL (0.0-1.1) Eosinophils # (Auto) 0.0 x10^3/uL (0.0-0.7) Basophils # (Auto) 0.0 x10^3/uL (0.0-0.2) Platelet Estimate Adequate (ADEQUATE) Poikilocytosis Slight Anisocytosis Mod Microcytosis Ovalocytes Few Prothrombin Time 13.3 SEC (11.7-14.0) Prothromb Time International Ratio 1.1 (0.8-1.1) Sodium Level 137 mmol/L (136-145) Potassium Level 4.0 mmol/L (3.5-5.1) Chloride Level 103 mmol/L (98-107) Carbon Dioxide Level 25 mmol/L (21-32) Anion Gap 9 (6-14) Blood Urea Nitrogen 12 mg/dL (7-20) Creatinine 0.8 mg/dL (0.6-1.0) Estimated GFR (Cockcroft-Gault) 98.8 Glucose Level 94 mg/dL (70-99) Calcium Level 9.7 mg/dL (8.5-10.1) Magnesium Level 1.9 mg/dL (1.8-2.4) Total Bilirubin 0.3 mg/dL (0.2-1.0) Direct Bilirubin 0.1 mg/dL (0.0-0.2) Aspartate Amino Transf (AST/SGOT) 21 U/L (15-37) Alanine Aminotransferase (ALT/SGPT) 17 U/L (14-59) Alkaline Phosphatase 42 U/L (46-116) Creatine Kinase 212 U/L (26-192) Creatine Kinase MB (Mass) < 0.5 ng/mL (0.0-3.6) Creatine Kinase MB Relative Index % (0-4) Troponin I Quantitative < 0.017 ng/mL (0.000-0.055) < 0.017 ng/mL (0.000-0.055) BV-Vha-D-Type Natriuretic Peptide 23 pg/mL (0-124) Total Protein 8.5 g/dL (6.4-8.2) Albumin 4.2 g/dL (3.4-5.0) Lipase 97 U/L (73-393) Test 04/26/17 04:30 04/26/17 07:18 White Blood Count 4.7 x10^3/uL (4.0-11.0) Red Blood Count 3.51 x10^6/uL (3.50-5.40) Hemoglobin 9.1 g/dL (12.0-15.5) Hematocrit 29.1 % (36.0-47.0) Mean Corpuscular Volume 83 fL (79-100) Mean Corpuscular Hemoglobin 26 pg (25-35) Mean Corpuscular Hemoglobin Concent 31 g/dL (31-37) Red Cell Distribution Width 20.6 % (11.5-14.5) Platelet Count 263 x10^3/uL (140-400) Neutrophils (%) (Auto) 54 % (31-73) Lymphocytes (%) (Auto) 35 % (24-48) Monocytes (%) (Auto) 8 % (0-9) Eosinophils (%) (Auto) 1 % (0-3) Basophils (%) (Auto) 1 % (0-3) Neutrophils # (Auto) 2.5 x10^3uL (1.8-7.7) Lymphocytes # (Auto) 1.6 x10^3/uL (1.0-4.8) Monocytes # (Auto) 0.4 x10^3/uL (0.0-1.1) Eosinophils # (Auto) 0.0 x10^3/uL (0.0-0.7) Basophils # (Auto) 0.1 x10^3/uL (0.0-0.2) Sodium Level 141 mmol/L (136-145) Potassium Level 3.9 mmol/L (3.5-5.1) Chloride Level 105 mmol/L (98-107) Carbon Dioxide Level 24 mmol/L (21-32) Anion Gap 12 (6-14) Blood Urea Nitrogen 10 mg/dL (7-20) Creatinine 0.8 mg/dL (0.6-1.0) Estimated GFR (Cockcroft-Gault) 98.8 Glucose Level 48 mg/dL (70-99) Calcium Level 9.5 mg/dL (8.5-10.1) Troponin I Quantitative < 0.017 ng/mL (0.000-0.055) Glucose (Fingerstick) 124 mg/dL (70-99) Medications Current Medications Nitroglycerin (Nitrostat) 0.4 mg PRN Q5MIN PRN SL CP RATING > 1/10; Start 04/25 at 13:00; Stop 04/26/17 at 12:59 Sodium Chloride 1,000 ml @ 1,000 mls/hr Q1H IV Last administered on 04/25/17t 13:06; Start 04/25/17 at 12:53; Stop 04/25/17 at 13:52; Status DC Fentanyl Citrate (Fentanyl 2ml Vial) 50 mcg PRN Q15MIN PRN IV PAIN GREATER THAN 3/10; Start 04/25/17 at 14:15; Stop 04/26/17 at 14:14 Ondansetron HCl (Zofran) 4 mg PRN Q8HRS PRN IV NAUSEA/VOMITING; Start 04/25/17 at 16:15; Stop 04/26/17 at 16:14 Aspirin (Cherry Aspirin) 325 mg 1X ONCE PO Last administered on 04/25/17 16:29 ; Start 04/25/17 at 16:15; Stop 04/25/17 at 16:16; Status DC Acetaminophen (Tylenol) 650 mg PRN Q6HRS PRN PO MILD PAIN / TEMP Last administered on 04/25/17 23:34; Start 04/25/17 at 23:15 Alprazolam (Xanax) 0.5 mg PRN Q8HRS PRN PO ANXIETY / AGITATION Last administered on 04/26/17 09:57; Start 04/25/17 at 23:15 Aspirin (Children'S Aspirin) 81 mg DAILY PO Last administered on 04/26/17 08: 27; Start 04/26/17 at 09:00 Ferrous Sulfate (Feosol) 325 mg DAILY PO Last administered on 04/26/17 08:27; Start 04/26/17 at 09:00 Fluticasone Propionate (Flonase) 2 spray DAILY NS Last administered on 08:26; Start 04/26/17 at 09:00 Pantoprazole Sodium (Protonix) 40 mg DAILYAC PO Last administered on 04/26/17 08:26; Start 04/26/17 at 07:30 Active Scripts Active Fluticasone Propionate Nasal [place] (Fluticasone Propionate) 16 Gm [place].susp 2 [place] NS DAILY Reported Tylenol (Acetaminophen) 325 Mg Tablet 650 Mg PO PRN Q6-8HRS PRN Vitamin D (Cholecalciferol (Vitamin D3)) 50,000 Unit Capsule 50,000 Unit PO WEEKLY Ferrous Sulfate 325 Mg Tablet 1 Tab PO DAILY Xanax (Alprazolam) 0.25 Mg Tablet 0.5 Mg PO Q8HRS PRN Protonix (Pantoprazole Sodium) 40 Mg Tablet.dr 40 Mg PO DAILY Aspirin 81 Mg Tab.chew 1 Tab PO DAILY Vitals/I & O Vital Sign - Last 24 Hours 04/25/17 04/25/17 04/25/17 04/25/17 12:56 13:20 14:20 15:20 Temp 98.3 98.3 Pulse 82 75 74 82 Resp 16 B/P (MAP) 128/69 (88) 134/83 (100) 123/73 (90) 125/66 (85) Pulse Ox 100 100 100 100 O2 Delivery Room Air 04/25/17 04/25/17 04/25/17 04/25/17 17:06 19:10 20:00 23:30 Temp 98.6 98.1 98.1 98.6 98.1 98.1 Pulse 80 78 72 Resp 20 16 16 B/P (MAP) 108/74 (85) 108/66 (80) 108/54 (72) Pulse Ox 98 100 99 O2 Delivery Room Air Room Air Room Air Room Air 04/26/17 04/26/17 04/26/17 04/26/17 03:32 07:00 08:00 10:51 Temp 97.9 99.0 97.9 99.0 Pulse 71 82 88 Resp 16 18 18 B/P (MAP) 97/60 (72) 104/63 (77) 109/66 (80) Pulse Ox 100 99 100 O2 Delivery Room Air Room Air Room Air Room Air Intake and Output 04/25/17 04/25/17 04/26/17 15:00 23:00 07:00 Intake Total 480 ml 400 ml Balance 480 ml 400 ml SAIMA BLACKWOOD MD Apr 26, 2017 11:50
[2017-04-26] MEDS ORDERED: LIDO700A39 TD (11:51)
[2017-04-26] MEDS ORDERED: PANT40TA3 PO (11:51)
[2017-04-26] MEDS ORDERED: LIDOCAINE (700MG/PATCH) PATCH. TD SCH (12:00)
[2017-04-26 15:00] VITALS: BP 111/65
--- NOTE | 2017-04-26 15:04 | RAD ---
MRI cervical spine without contrast dated 04/26/2017. No comparison available. CLINICAL INDICATION: Neck pain and left arm radiculopathy for 2 months. TECHNIQUE: Routine multiplanar multisequence MR imaging of cervical spine performed. No contrast administered. FINDINGS: Bone marrow signal is homogeneous. No marrow edema. Sagittal alignment is anatomic. Vertebral body heights are maintained. Mild hypertrophic change of the superior and inferior endplates throughout. Cervical medullary junction is within normal limits. No cerebellar tonsillar ectopia. No focal signal abnormality within the cervical cord. At C2-C3, mild uncovertebral hypertrophy with no significant posterior bulge. Central canal and foramen are adequate. At C3-C4, mild broad-based posterior bulge with uncovertebral hypertrophy. Central canal and foramen are adequate. At C4-C5, mild broad-based posterior disc osteophyte complex with superimposed small central protrusion. Central canal is mildly narrowed. Bulging disc abuts the ventral cervical cord without cord flattening. The bilateral foramen are adequate. At C5-C6, mild broad-based posterior bulge with uncovertebral hypertrophy. Mild hypertrophic change of the facet joints. Central canal is adequate. Bilateral foramen are patent. At C6-C7, minimal broad-based bulge with mild hypertrophic change of the facet joints. Central canal and foramen are adequate. At C7-T1, normal. IMPRESSION: Mild multilevel cervical spondylosis with no evidence of neural compression. Electronically signed by: Jose Cuevas MD (04/26/2017 3:00 PM) [facility] [place]
[2017-04-26] MEDS: ACETAMINOPHEN 325 MG TABLET. PO PRN (15:08)
--- NOTE | 2017-05-08 09:59 | PDOC3 ---
Discharge Summary Visit Information Date of Admission: Apr 25, 2017 Date of Discharge: Apr 26, 2017 Admitting Diagnosis: chest pain Final Diagnosis anxiety d/o NOS, depression gastroesophageal reflux disease, palpitations, prior supraventricular tachycardia, left upper shoulder pain, and neck pain without MRI finding, consider strain Vitals Problems Medical Problems: (1) Chest pain Status: Acute Brief Hospital Course Allergies Allergies Coded Allergies Type Severity Reaction Last Updated Verified diphenhydramine Allergy Severe 02/04/17 Yes morphine Allergy Severe shortness of breath 02/04/17 Yes amoxicillin Allergy Intermediate hives 02/04/17 Yes clindamycin Allergy Intermediate 02/06/17 Yes doxycycline Allergy Intermediate 02/06/17 Yes hydrocodone Allergy Intermediate HIVES, tolerates Percocet 02/04/17 Yes ibuprofen Allergy Intermediate HIVES,tolerates aspirin 02/04/17 Yes Brief Hospital Course Ms. Redd is a 37 old admit for chest pain, anxiety high, seemed more neck pain and arm pain after admit. MRI cervical spine done, mult-level sponylysis, normal spine try lidoderm patch to neck CV consult recommended increase PPI Dr. jones, f/u neck pain outpatient PRN Discharge Information Condition at Discharge: Improved Follow Up: Weeks Disposition/Orders: D/C to Home Scheduled Aspirin (Aspirin), 1 TAB PO DAILY, (Reported) Cholecalciferol (Vitamin D3) (Vitamin D), 50,000 UNIT PO WEEKLY, (Reported) Ferrous Sulfate (Ferrous Sulfate), 1 TAB PO DAILY, (Reported) Fluticasone Propionate (Fluticasone Propionate Nasal [place]), 2 SPRAY NS DAILY Lidocaine (Lidocaine), 1 PATCH TD DAILY Pantoprazole Sodium (Protonix), 40 MG PO BID Scheduled PRN Acetaminophen (Tylenol), 650 MG PO PRN Q6-8HRS PRN for MILD PAIN / TEMP, ( Reported) Alprazolam (Xanax), 0.5 MG PO Q8HRS PRN for ANXIETY / AGITATION, (Reported) SAIMA BLACKWOOD MD May 08, 2017 09:58
== END 2017-04-26 16:31 | disposition home or self-care (01) | DRG 313 ==
LOC: ER 12:31 → 5 NORTH 16:00
PROVIDERS: ADMIT Internal Medicine Hematology & Oncology; ATTEND Internal Medicine Hematology & Oncology
DX: R07.89 Other chest pain (principal); Q21.1 Atrial septal defect; I48.91 Unspecified atrial fibrillation; F32.9 Major depressive disorder, single episode, unspecified; G58.9 Mononeuropathy, unspecified; F41.9 Anxiety disorder, unspecified; M54.2 Cervicalgia; K21.9 Gastro-esophageal reflux disease without esophagitis; Z82.49 Family history of ischemic heart disease and other diseases of the circulatory system; Z88.6 Allergy status to analgesic agent; Z88.1 Allergy status to other antibiotic agents; Z88.8 Allergy status to other drugs, medicaments and biological substances; Z79.01 Long term (current) use of anticoagulants; Z98.51 Tubal ligation status; Z86.73 Personal history of transient ischemic attack (TIA), and cerebral infarction without residual deficits
CPT/HCPCS: 36415; 71010; 72141; 80048; 80076; 80307; 81025; 82553; 82962; 83690; 83735; 83880; 84484; 85025; 85610; 93005; 96360; J7030; 99285-25; G0479

== ENCOUNTER 2017-05-01 12:43 | Emergency (ER) | payer SELFPAY ==
[~2017-05-01 12:43] MED LIST changes: +CHOL500050 PO; +LIDO700A39 TD
[2017-05-01 13:12] LABS: BASO # 0.1 x10^3/uL (0.0-0.2); BASO % 2 % (0-3); EOS % 1 % (0-3); HEMATOCRIT 34.4 % (36.0-47.0); HEMOGLOBIN 10.7 g/dL (12.0-15.5); LYMPH # 1.5 x10^3/uL (1.0-4.8); LYMPH % 29 % (24-48); MEAN CORPUSCULAR HEMOGLOBIN 26 pg (25-35); MEAN CORPUSCULAR HGB CONC 31 g/dL (31-37); MEAN CORPUSCULAR VOLUME 83 fL (79-100); MONO % 7 % (0-9); NEUT % 61 % (31-73); PLATELET COUNT 318 x10^3/uL (140-400); RED BLOOD COUNT 4.16 x10^6/uL (3.50-5.40); RED CELL DISTRIBUTION WIDTH 20.2 % (11.5-14.5); WHITE BLOOD COUNT 5.2 x10^3/uL (4.0-11.0)
[2017-05-01] MEDS ORDERED: ASPIRIN CHEWABLE 81 MG TABLET. PO ONE (13:15)
[2017-05-01 13:19] LABS: BILIRUBIN,URINE NEGATIVE (NEG); GLUCOSE,URINE NEGATIVE (NEG); NITRITE,URINE NEGATIVE (NEG); PROTEIN,URINE NEGATIVE (NEG-TRACE); UROBILINOGEN,URINE 0.2 mg/dL (0.2 mg/dL)
--- NOTE | 2017-05-01 13:20 | EKG ---
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
[2017-05-01 13:27] LABS: BACTERIA,URINE MODERATE /HPF (0-FEW); RBC,URINE 0 /HPF (0-2); SQUAMOUS EPITHELIAL CELL,UR MOD /LPF
--- NOTE | 2017-05-01 13:27 | RAD ---
History: Chest pain AP view the chest was obtained at 1315 hours. Comparison: April 25, 2017 The cardiomediastinal silhouette is normal. The pulmonary vasculature is normal. The lungs and pleural margins are clear. Impression: No evidence of an acute cardiopulmonary process.
[2017-05-01 13:30] LABS: CALCIUM 9.5 mg/dL (8.5-10.1); GFR 76.3; POTASSIUM 3.2 mmol/L (3.5-5.1)
[2017-05-01 13:36] LABS: ALBUMIN 4.1 g/dL (3.4-5.0); ALBUMIN/GLOBULIN RATIO 0.9 (1.0-1.7); TOTAL BILIRUBIN 0.5 mg/dL (0.2-1.0); TOTAL PROTEIN 8.6 g/dL (6.4-8.2)
--- NOTE | 2017-05-01 13:40 | PHYS DOC ---
Past Medical History Past Medical History: A-Fib, CVA Additional Past Medical Histor: PFO, CVA 2014; SVT Past Surgical History: Tubal ligation Alcohol Use: None Drug Use: None Adult General Chief Complaint Chief Complaint: Palpitations HPI HPI Patient is a 37 year old female who presents with complaint of chest pain and palpitations. Patient states that her symptoms started last night and have been present off and on ever since. Patient has had history of PSVT and has had recent admissions to the hospital for evaluation and chest pain. Patient was admitted April 25, 2017 for chest pain. Evaluation of chest pain lead II suspicion that her symptoms were likely due to acid reflux disease and patient was started on proton pump inhibitor. The patient's palpitations also were suspected to be due to anxiety. The patient denies any known triggers though she states that she has had trouble with similar symptoms after eating. Patient also states that she has felt chills and has had mild cough but is nonproductive. Patient states that the pain feels like pressure in the middle of her chest and rates as 9 out of 10 currently. Patient has not taken any medications today to help with her symptoms. Review of Systems Review of Systems Constitutional: Denies fever or chills [] Eyes: Denies change in visual acuity, redness, or eye pain [] HENT: Denies nasal congestion or sore throat [] Respiratory: Shortness of breath[] Cardiovascular: Chest pain, palpitations[] GI: Denies abdominal pain, nausea, vomiting, bloody stools or diarrhea [] : Denies dysuria or hematuria [] Musculoskeletal: Denies back pain or joint pain [] Integument: Denies rash or skin lesions [] Neurologic: Denies headache, focal weakness or sensory changes [] All other systems were reviewed and found to be within normal limits, except as documented in this note. Current Medications Current Medications Current Medications Medications (Trade) Dose Ordered Sig/Cassie Start Time Stop Time Status Last Admin Dose Admin Aspirin (Children'S Aspirin) 324 mg 1X ONCE 05/01/17 13:15 05/01/17 13:16 DC 05/01/17 13:17 324 MG Lorazepam (Ativan) 1 mg 1X ONCE 05/01/17 13:15 05/01/17 13:16 DC 05/01/17 13:18 1 MG Allergies Allergies Allergies Coded Allergies Type Severity Reaction Last Updated Verified diphenhydramine Allergy Severe 9/12/17 Yes morphine Allergy Severe shortness of breath 02/04/17 Yes amoxicillin Allergy Intermediate hives 02/04/17 Yes clindamycin Allergy Intermediate 02/06/17 Yes doxycycline Allergy Intermediate 02/06/17 Yes hydrocodone Allergy Intermediate HIVES, tolerates Percocet 02/04/17 Yes ibuprofen Allergy Intermediate HIVES,tolerates aspirin 02/04/17 Yes Physical Exam Physical Exam Constitutional: Alert, afebrile, appears in mild to moderate discomfort. [] HENT: Normocephalic, atraumatic, bilateral external ears normal, oropharynx moist, no oral exudates, nose normal. [] Eyes: PERRLA, EOMI, conjunctiva normal, no discharge. [] Neck: Normal range of motion, no tenderness, supple, no stridor. [] Cardiovascular: Tachycardia, regular rhythm, no murmur [] Lungs & Thorax: Bilateral breath sounds clear to auscultation [] Abdomen: Bowel sounds normal, soft, no tenderness, no masses, no pulsatile masses. [] Skin: Warm, dry, no erythema, no rash. [] Back: No tenderness, no CVA tenderness. [] Extremities: No tenderness, no cyanosis, no clubbing, ROM intact, no edema. [] Neurologic: Alert and oriented X 3, normal motor function, normal sensory function, no focal deficits noted. [] Current Patient Data Vital Signs Vital Signs Date Time Temp Pulse Resp B/P (MAP) Pulse Ox O2 Delivery O2 Flow Rate FiO2 05/01/17 13:21 90 117/65 (82) 99 Room Air 05/01/17 12:49 98.0 18 98.0 Lab Values Laboratory Tests Test 05/01/17 12:54 05/01/17 13:08 05/01/17 13:10 White Blood Count 5.2 x10^3/uL (4.0-11.0) Red Blood Count 4.16 x10^6/uL (3.50-5.40) Hemoglobin 10.7 g/dL (12.0-15.5) L Hematocrit 34.4 % (36.0-47.0) L Mean Corpuscular Volume 83 fL (79-100) Mean Corpuscular Hemoglobin 26 pg (25-35) Mean Corpuscular Hemoglobin Concent 31 g/dL (31-37) Red Cell Distribution Width 20.2 % (11.5-14.5) H Platelet Count 318 x10^3/uL (140-400) Neutrophils (%) (Auto) 61 % (31-73) Lymphocytes (%) (Auto) 29 % (24-48) Monocytes (%) (Auto) 7 % (0-9) Eosinophils (%) (Auto) 1 % (0-3) Basophils (%) (Auto) 2 % (0-3) Neutrophils # (Auto) 3.2 x10^3uL (1.8-7.7) Lymphocytes # (Auto) 1.5 x10^3/uL (1.0-4.8) Monocytes # (Auto) 0.4 x10^3/uL (0.0-1.1) Eosinophils # (Auto) 0.0 x10^3/uL (0.0-0.7) Basophils # (Auto) 0.1 x10^3/uL (0.0-0.2) Platelet Estimate Pending Sodium Level 137 mmol/L (136-145) Potassium Level 3.2 mmol/L (3.5-5.1) L Chloride Level 101 mmol/L (98-107) Carbon Dioxide Level 24 mmol/L (21-32) Anion Gap 12 (6-14) Blood Urea Nitrogen 12 mg/dL (7-20) Creatinine 1.0 mg/dL (0.6-1.0) Estimated GFR (Cockcroft-Gault) 76.3 BUN/Creatinine Ratio 12 (6-20) Glucose Level 141 mg/dL (70-99) H Calcium Level 9.5 mg/dL (8.5-10.1) Magnesium Level 2.0 mg/dL (1.8-2.4) Total Bilirubin 0.5 mg/dL (0.2-1.0) Aspartate Amino Transferase (AST) 17 U/L (15-37) Alanine Aminotransferase (ALT) 14 U/L (14-59) Alkaline Phosphatase 47 U/L (46-116) Creatine Kinase 43 U/L (26-192) Creatine Kinase MB (Mass) < 0.5 ng/mL (0.0-3.6) Creatine Kinase MB Relative Index % (0-4) Troponin I Quantitative < 0.017 ng/mL (0.000-0.055) AR-Nnp-D-Type Natriuretic Peptide 26 pg/mL (0-124) Total Protein 8.6 g/dL (6.4-8.2) H Albumin 4.1 g/dL (3.4-5.0) Albumin/Globulin Ratio 0.9 (1.0-1.7) L Urine Collection Type Unknown Urine Color Yellow Urine Clarity Cloudy Urine pH 7.0 Urine Specific [place] 1.025 Urine Protein Negative mg/dL (NEG-TRACE) Urine Glucose (UA) Negative mg/dL (NEG) Urine Ketones (Stick) Negative mg/dL (NEG) Urine Blood Negative (NEG) Urine Nitrite Negative (NEG) Urine Bilirubin Negative (NEG) Urine Urobilinogen Dipstick 0.2 mg/dL (0.2 mg/dL) Urine Leukocyte Esterase Small (NEG) Urine RBC 0 /HPF (0-2) Urine WBC 1-4 /HPF (0-4) Urine Squamous Epithelial Cells Mod /LPF Urine Bacteria Moderate /HPF (0-FEW) Urine Mucus Mod /LPF POC Urine HCG, Qualitative Hcg negative (Negative) Laboratory Tests 05/01/17 12:54 Laboratory Tests 05/01/17 12:54 EKG EKG Interpreted by me: Heart rate 124 bpm, sinus tachycardia, normal intervals, normal axis, no acute ST/T-wave abnormalities present[] Radiology/Procedures Radiology/Procedures [facility] [address] [place], [place] [id number] IMAGING REPORT Signed PATIENT: NARA SEGUNDO ACCOUNT: [id number] : 1980 LOCATION: ER AGE: 37 SEX: F EXAM STATUS: PRE ER ORD. PHYSICIAN: LEO RODRIGUEZ MD REASON: chest pain, tachycardia PROCEDURE: PORTABLE CHEST 1V History: Chest pain AP view the chest was obtained at 1315 hours. Comparison: April 25, 2017 The cardiomediastinal silhouette is normal. The pulmonary vasculature is normal. The lungs and pleural margins are clear. Impression: No evidence of an acute cardiopulmonary process. DICTATED and SIGNED BY: LAWRENCE DEAN III, MD DATE: 05/01/17 1323 CC: ALEXUS ROBLES; LEO RODRIGUEZ MD ~ [] Course & Med Decision Making Course & Med Decision Making Pertinent Labs and Imaging studies reviewed. (See chart for details) Patient was given IV fluids and administered Ativan in the emergency department. Shortly after administration of Ativan, the patient's heart rate improved to 80-85 bpm in sinus rhythm. Patient's vital signs remained stable and required no further intervention. Patient's lab work is largely unremarkable. I spoke with the cardiology service and patient was seen by SAM Leahy for the cardiology service under Dr. Martel. They have scheduled patient for an appointment on May 22, [address] Edgar. They do not feel that the patient's symptoms appear to be due to an acute cardiac event at this time but have discussed having her follow-up as an outpatient for evaluation to see if the patient will need a loop recorder implanted at that time. My personal suspicion is that the patient's symptoms appear to be psychologically mediated. Patient does admit to anxiety and depression. The patient has a prescription for Paxil at home but has not started taking this medication. I recommended that the patient strongly consider starting this medication as this will also likely help reduce her use of Xanax at home and help better control her anxiety. I recommended that the patient return to the emergency department for any worsening symptoms. Recommended follow-up with patient's primary doctor in 3-4 days for ER follow- up. Patient voiced understanding and in agreement with treatment plan. Dragon Disclaimer Dragon Disclaimer This electronic medical record was generated, in whole or in part, using a voice recognition dictation system. Departure Departure Impression: Primary Impression: Palpitations Additional Impressions: Sinus tachycardia Anxiety Disposition: 01 HOME, SELF-CARE Condition: IMPROVED Referrals: ALEXUS ROBLES (PCP) Patient Instructions: Anxiety and Panic Attacks, Palpitations Additional Instructions: Follow-up with your primary doctor in 3-4 days for reevaluation. You have an appointment scheduled on May 22, [address] Edgar of cardiology. Please return to the emergency department for any worsening symptoms. Problem Qualifiers LEO RODRIGUEZ MD May 01, 2017 13:40
[2017-05-01 13:48] LABS: CREATINE KINASE 43 U/L (26-192)
[2017-05-01 13:49] LABS: CKMB MASS < 0.5 ng/mL (0.0-3.6)
[2017-05-01 14:51] VITALS: BP 113/63
[2017-05-01 17:30] LABS: PLT ESTIMATE ADEQUATE (ADEQUATE)
[2017-05-01 17:31] LABS: ANISOCYTOSIS MOD; OVALOCYTES FEW; POIKILOCYTOSIS SLIGHT; SCHISTOCYTES OCC
== END 2017-05-01 15:15 | disposition home or self-care (01) ==
LOC: ER 12:43
DX: I47.1 Supraventricular tachycardia (principal); F41.9 Anxiety disorder, unspecified; I48.91 Unspecified atrial fibrillation; F32.9 Major depressive disorder, single episode, unspecified; Z86.73 Personal history of transient ischemic attack (TIA), and cerebral infarction without residual deficits; Z88.8 Allergy status to other drugs, medicaments and biological substances; Z88.5 Allergy status to narcotic agent; Z88.1 Allergy status to other antibiotic agents; Z88.6 Allergy status to analgesic agent
CPT/HCPCS: 36415; 71010; 80053; 81001; 81025; 82553; 83735; 83880; 84484; 85025; 87086; 93005; 96374; 99285; J2060

== ENCOUNTER 2017-05-09 08:30 | Emergency (ER) | payer SELFPAY ==
[~2017-05-09] VITALS: Ht 170.2 cm; Wt 56.7 kg
[2017-05-09] MEDS ORDERED: IV NORMAL SALINE 1000ML BAG 1,000 ML IV SCH (09:23)
--- NOTE | 2017-05-09 09:46 | PHYS DOC ---
Past Medical History Past Medical History: Anxiety, CVA, Depression, GERD Additional Past Medical Histor: PFO, CVA 2015; SVT Past Surgical History: Tubal ligation Alcohol Use: None Drug Use: None Adult General Chief Complaint Chief Complaint: CHEST PAIN HPI HPI Patient is a 37 year old female who presents with complaint of chest pain. Patient has had multiple recent visits to the emergency department in hospital for similar symptoms. Patient has history of GERD, anxiety, and SVT. Patient states that her symptoms started 1 hour ago and are typical for her recent episodes. Patient states that she is having burning pain in the middle of her chest as well as sharp pain along the left side of her chest which is reproducible. The patient states that she recently started on Paxil, however she started having dilated pupils and increasing anxiety and discontinue taking this medication. Patient also was recently started on Flagyl by her SCHEDULE CHECKER for treatment of bacterial vaginosis. Patient states that she took one pill yesterday and started to "feel funny." The patient also has other complaints including "double vision." When asked to cover up one eye, the patient states that this does not resolve her double vision. Patient denies blurry vision. Patient has had no fevers. Has had intermittent shortness of breath. Rates pain as 8 out of 10. Review of Systems Review of Systems Constitutional: Denies fever or chills [] Eyes: Denies change in visual acuity, redness, or eye pain [] HENT: Denies nasal congestion or sore throat [] Respiratory: Shortness of breath[] Cardiovascular: Chest pain, denies edema[] GI: Denies abdominal pain, nausea, vomiting, bloody stools or diarrhea [] : Denies dysuria or hematuria [] Musculoskeletal: Denies back pain or joint pain [] Integument: Denies rash or skin lesions [] Neurologic: "Double vision," denies focal weakness or sensory changes [] All other systems were reviewed and found to be within normal limits, except as documented in this note. Current Medications Current Medications Current Medications Medications (Trade) Dose Ordered Sig/Cassie Start Time Stop Time Status Last Admin Dose Admin Lorazepam (Ativan) 1 mg 1X ONCE 05/09/17 09:30 05/09/17 09:31 DC 05/09/17 09:59 1 MG Sodium Chloride 1,000 ml @ 1,000 mls/hr Q1H 05/09/17 09:23 05/09/17 10:22 DC 05/09/17 09:59 1,000 MLS/HR Allergies Allergies Allergies Coded Allergies Type Severity Reaction Last Updated Verified diphenhydramine Allergy Severe 02/04/17 Yes fentanyl Allergy Severe 05/09/17 Yes morphine Allergy Severe shortness of breath 02/04/17 Yes amoxicillin Allergy Intermediate hives 02/04/17 Yes clindamycin Allergy Intermediate 02/06/17 Yes doxycycline Allergy Intermediate 02/06/17 Yes hydrocodone Allergy Intermediate HIVES, tolerates Percocet 02/04/17 Yes ibuprofen Allergy Intermediate HIVES,tolerates aspirin 02/04/17 Yes Physical Exam Physical Exam Constitutional: Alert, afebrile, appears anxious, vital signs stable. [] HENT: Normocephalic, atraumatic, bilateral external ears normal, oropharynx moist, no oral exudates, nose normal. [] Eyes: PERRLA, EOMI, conjunctiva normal, no discharge. [] Neck: Normal range of motion, no tenderness, supple, no stridor. [] Cardiovascular:Heart rate regular rhythm, no murmur [] Lungs & Thorax: Bilateral breath sounds clear to auscultation, left anterior chest wall tenderness to palpation causing reproducible pain [] Abdomen: Bowel sounds normal, soft, no tenderness, no masses, no pulsatile masses. [] Skin: Warm, dry, no erythema, no rash. [] Back: No tenderness, no CVA tenderness. [] Extremities: No tenderness, no cyanosis, no clubbing, ROM intact, no edema. [] Neurologic: Alert and oriented X 3, normal motor function, normal sensory function, no focal deficits noted. [] Current Patient Data Vital Signs Vital Signs Date Time Temp Pulse Resp B/P (MAP) Pulse Ox O2 Delivery O2 Flow Rate FiO2 05/09/17 13:08 88 16 102/50 (67) 100 05/09/17 12:37 Room Air 05/09/17 08:44 98.4 98.4 Lab Values Laboratory Tests Test 05/09/17 09:27 05/09/17 09:42 05/09/17 09:50 05/09/17 11:47 Urine Collection Type Unknown Urine Color Yellow Urine Clarity Clear Urine pH 8.0 Urine Specific [place] <=1.005 Urine Protein Negative mg/dL (NEG-TRACE) Urine Glucose (UA) Negative mg/dL (NEG) Urine Ketones (Stick) Negative mg/dL (NEG) Urine Blood Moderate (NEG) Urine Nitrite Negative (NEG) Urine Bilirubin Negative (NEG) Urine Urobilinogen Dipstick 0.2 mg/dL (0.2 mg/dL) Urine Leukocyte Esterase Negative (NEG) Urine RBC 11-20 /HPF (0-2) Urine WBC Occ /HPF (0-4) Urine Squamous Epithelial Cells Mod /LPF Urine Bacteria Few /HPF (0-FEW) Urine Mucus Slight /LPF POC Urine HCG, Qualitative Hcg negative (Negative) White Blood Count 4.0 x10^3/uL (4.0-11.0) Red Blood Count 4.03 x10^6/uL (3.50-5.40) Hemoglobin 10.3 g/dL (12.0-15.5) L Hematocrit 33.2 % (36.0-47.0) L Mean Corpuscular Volume 82 fL (79-100) Mean Corpuscular Hemoglobin 26 pg (25-35) Mean Corpuscular Hemoglobin Concent 31 g/dL (31-37) Red Cell Distribution Width 19.5 % (11.5-14.5) H Platelet Count 332 x10^3/uL (140-400) Neutrophils (%) (Auto) 70 % (31-73) Lymphocytes (%) (Auto) 22 % (24-48) L Monocytes (%) (Auto) 7 % (0-9) Eosinophils (%) (Auto) 1 % (0-3) Basophils (%) (Auto) 1 % (0-3) Neutrophils # (Auto) 2.8 x10^3uL (1.8-7.7) Lymphocytes # (Auto) 0.9 x10^3/uL (1.0-4.8) L Monocytes # (Auto) 0.3 x10^3/uL (0.0-1.1) Eosinophils # (Auto) 0.0 x10^3/uL (0.0-0.7) Basophils # (Auto) 0.0 x10^3/uL (0.0-0.2) Sodium Level 139 mmol/L (136-145) Potassium Level 3.6 mmol/L (3.5-5.1) Chloride Level 103 mmol/L (98-107) Carbon Dioxide Level 25 mmol/L (21-32) Anion Gap 11 (6-14) Blood Urea Nitrogen 9 mg/dL (7-20) Creatinine 0.8 mg/dL (0.6-1.0) Estimated GFR (Cockcroft-Gault) 98.8 BUN/Creatinine Ratio 11 (6-20) Glucose Level 94 mg/dL (70-99) Calcium Level 9.4 mg/dL (8.5-10.1) Magnesium Level 2.2 mg/dL (1.8-2.4) Total Bilirubin 0.3 mg/dL (0.2-1.0) Aspartate Amino Transferase (AST) 16 U/L (15-37) Alanine Aminotransferase (ALT) 13 U/L (14-59) L Alkaline Phosphatase 46 U/L (46-116) Creatine Kinase 39 U/L (26-192) 34 U/L (26-192) Creatine Kinase MB (Mass) < 0.5 ng/mL (0.0-3.6) < 0.5 ng/mL (0.0-3.6) Creatine Kinase MB Relative Index % (0-4) % (0-4) Troponin I Quantitative < 0.017 ng/mL (0.000-0.055) < 0.017 ng/mL (0.000-0.055) Total Protein 8.3 g/dL (6.4-8.2) H Albumin 4.2 g/dL (3.4-5.0) Albumin/Globulin Ratio 1.0 (1.0-1.7) Laboratory Tests 05/09/17 09:50 Laboratory Tests 05/09/17 09:50 EKG EKG Interpreted by me: Heart rate 77, sinus rhythm, normal intervals, normal axis, no acute ST/T-wave abnormalities present[] Radiology/Procedures Radiology/Procedures Not performed[] Course & Med Decision Making Course & Med Decision Making Pertinent Labs and Imaging studies reviewed. (See chart for details) Patient was started on Ativan and IV fluids. The patient's lab work was unremarkable and 2 sets of cardiac enzymes showed no elevation. The patient's symptoms are consistent with persistent chest wall pain. Due to continued symptoms of chest wall pain, the patient will be started on Medrol Dosepak for treatment. The patient's symptoms continue to be mediated by stress and anxiety and we discussed coping mechanisms for this. I spoke with the patient's cardiology office and they confirm that the patient has an appointment on May 22, 2017 at 10:30 AM. This was relayed to the patient who was unaware of the appointment and she expressed understanding. She will follow-up the cardiology office as scheduled. Advised return emergency department for any worsening symptoms. Patient voiced understanding and in agreement with treatment plan. Dragon Disclaimer Dragon Disclaimer This electronic medical record was generated, in whole or in part, using a voice recognition dictation system. Departure Departure Impression: Primary Impression: Atypical chest pain Additional Impression: Anxiety Disposition: HOME, SELF-CARE Condition: IMPROVED Referrals: ALEXUS ROBLES (PCP) Patient Instructions: Anxiety and Panic Attacks, Chest Pain (Nonspecific) Additional Instructions: You have an appointment with Dr. Edgar of cardiology scheduled on April@10:30 AM. Please keep this appointment as scheduled. Continue your home medications as prescribed. You will be started on a Medrol Dosepak to help relieve inflammation and your neck and shoulder. Return to the emergency department for any worsening symptoms. Scripts Methylprednisolone (MEDROL) 4 Mg Tab.ds.pk 1 PKG PO UD, #1 PKG Prov: LEO RODRIGUEZ MD 05/09/17 Problem Qualifiers LEO RODRIGUEZ MD May 09, 2017 09:46
[2017-05-09 09:54] LABS: BILIRUBIN,URINE NEGATIVE (NEG); GLUCOSE,URINE NEGATIVE (NEG); NITRITE,URINE NEGATIVE (NEG); PROTEIN,URINE NEGATIVE (NEG-TRACE); UROBILINOGEN,URINE 0.2 mg/dL (0.2 mg/dL)
[2017-05-09 10:04] LABS: BASO % 1 % (0-3); EOS % 1 % (0-3); HEMATOCRIT 33.2 % (36.0-47.0); HEMOGLOBIN 10.3 g/dL (12.0-15.5); LYMPH # 0.9 x10^3/uL (1.0-4.8); LYMPH % 22 % (24-48); MEAN CORPUSCULAR HEMOGLOBIN 26 pg (25-35); MEAN CORPUSCULAR HGB CONC 31 g/dL (31-37); MEAN CORPUSCULAR VOLUME 82 fL (79-100); MONO % 7 % (0-9); NEUT % 70 % (31-73); PLATELET COUNT 332 x10^3/uL (140-400); RED BLOOD COUNT 4.03 x10^6/uL (3.50-5.40); RED CELL DISTRIBUTION WIDTH 19.5 % (11.5-14.5)
[2017-05-09 10:07] LABS: SQUAMOUS EPITHELIAL CELL,UR MOD /LPF
[2017-05-09 10:08] LABS: BACTERIA,URINE FEW /HPF (0-FEW); WBC,URINE OCC /HPF (0-4)
[2017-05-09 10:17] LABS: CALCIUM 9.4 mg/dL (8.5-10.1); CREATININE 0.8 mg/dL (0.6-1.0); GFR 98.8; POTASSIUM 3.6 mmol/L (3.5-5.1)
[2017-05-09 10:22] LABS: ALBUMIN 4.2 g/dL (3.4-5.0); MAGNESIUM 2.2 mg/dL (1.8-2.4); TOTAL BILIRUBIN 0.3 mg/dL (0.2-1.0); TOTAL PROTEIN 8.3 g/dL (6.4-8.2)
[2017-05-09 10:31] LABS: CKMB MASS < 0.5 ng/mL (0.0-3.6); CREATINE KINASE 39 U/L (26-192)
--- NOTE | 2017-05-09 11:06 | EKG ---
[facility] [address] [place] [address] Test Date: 2017-05-09 Test Time: 08:35:21 Pat Name: NARA SEGUNDO Department: Room: Gender: F Seam Checker: : 1980 Requested By: LEO RODRIGUEZ Order Number: [id number] Reading MD: Measurements Intervals [place] Rate: 77 P: 52 ND: 146 QRS: 26 QRSD: 76 T: -1 QT: 358 QTc: 407 Interpretive Statements SINUS RHYTHM QRS(T) CONTOUR ABNORMALITY CONSIDER ANTEROSEPTAL MYOCARDIAL DAMAGE POSSIBLY ABNORMAL ECG RI6.01 No previous ECG available for comparison
[2017-05-09 12:25] LABS: CKMB MASS < 0.5 ng/mL (0.0-3.6); CREATINE KINASE 34 U/L (26-192)
[2017-05-09] MEDS ORDERED: METH4TAB2 PO (12:57)
[2017-05-09 13:08] VITALS: BP 102/50
--- NOTE | 2017-05-09 14:39 | EKG ---
[facility] [address] [place] [address] Test Date: 2017-05-09 Test Time: 11:37:07 Pat Name: NARA SEGUNDO Department: Room: Gender: F Voice Pathologist: : 1980 Requested By: LEO RODRIGUEZ Order Number: [id number] Reading MD: Measurements Intervals [place] Rate: 76 P: 53 CT: 154 QRS: 25 QRSD: 74 T: 8 QT: 388 QTc: 440 Interpretive Statements SINUS RHYTHM NON SPECIFIC T ABNORMALITY BORDERLINE ECG No previous ECG available for comparison
== END 2017-05-09 13:10 | disposition home or self-care (01) ==
LOC: ER 08:30
DX: R07.89 Other chest pain (principal); F41.9 Anxiety disorder, unspecified; H53.2 Diplopia; R06.02 Shortness of breath; F32.9 Major depressive disorder, single episode, unspecified; K21.9 Gastro-esophageal reflux disease without esophagitis; I47.1 Supraventricular tachycardia; Z88.8 Allergy status to other drugs, medicaments and biological substances; Z88.4 Allergy status to anesthetic agent; Z88.5 Allergy status to narcotic agent; Z88.1 Allergy status to other antibiotic agents; Z88.6 Allergy status to analgesic agent; Z79.899 Other long term (current) drug therapy; Z86.73 Personal history of transient ischemic attack (TIA), and cerebral infarction without residual deficits
CPT/HCPCS: 36415; 80053; 81001; 81025; 82553; 83735; 84484; 85025; 93005; 96361; 96374; 99285; J2060; J7030

== ENCOUNTER 2017-06-20 15:53 | Emergency (ER) | payer OTHER ==
[2017-06-20 17:17] LABS: BILIRUBIN,URINE NEGATIVE (NEG); CLARITY,URINE CLEAR; COLOR,URINE YELLOW; GLUCOSE,URINE NEGATIVE (NEG); NITRITE,URINE NEGATIVE (NEG); PH,URINE 7.5; PROTEIN,URINE NEGATIVE (NEG-TRACE); UROBILINOGEN,URINE 0.2 mg/dL (0.2 mg/dL)
[2017-06-20 17:23] LABS: BARBITURATES NEG (NEG); BENZODIAZEPINES NEG (NEG); CANNABINOIDS NEG (NEG); COCAINE NEG (NEG); METHADONE NEG (NEG); OPIATES NEG (NEG); PHENCYCLIDINE NEG (NEG)
[2017-06-20 17:26] LABS: BACTERIA,URINE 0 /HPF (0-FEW); RBC,URINE 0 /HPF (0-2); SQUAMOUS EPITHELIAL CELL,UR FEW /LPF; WBC,URINE 0 /HPF (0-4)
[2017-06-20 17:29] LABS: AMPHETAMINE/METHAMPHETAMINE NEG (NEG); ETHANOL, URINE NEG (NEG)
[2017-06-20 17:32] LABS: BASO % 1 % (0-3); EOS % 1 % (0-3); HEMATOCRIT 31.5 % (36.0-47.0); HEMOGLOBIN 10.1 g/dL (12.0-15.5); LYMPH # 1.4 x10^3/uL (1.0-4.8); LYMPH % 39 % (24-48); MEAN CORPUSCULAR HEMOGLOBIN 26 pg (25-35); MEAN CORPUSCULAR HGB CONC 32 g/dL (31-37); MEAN CORPUSCULAR VOLUME 81 fL (79-100); MONO # 0.4 x10^3/uL (0.0-1.1); MONO % 11 % (0-9); NEUT # 1.7 x10^3uL (1.8-7.7); NEUT % 47 % (31-73); PLATELET COUNT 306 x10^3/uL (140-400); RED BLOOD COUNT 3.91 x10^6/uL (3.50-5.40); RED CELL DISTRIBUTION WIDTH 20.6 % (11.5-14.5); WHITE BLOOD COUNT 3.5 x10^3/uL (4.0-11.0)
[2017-06-20 17:33] LABS: ADD MAN DIFF? YES; INR 0.9 (0.8-1.1)
[2017-06-20 17:36] LABS: D-DIMER 1.19 ug/mlFEU (0.00-0.50)
[2017-06-20] MEDS: IV NORMAL SALINE 1000ML BAG 1,000 ML IV ×2 (17:47)
[2017-06-20 17:52] LABS: ANION GAP 10 (6-14); BLOOD UREA NITROGEN 14 mg/dL (7-20); CALCIUM 9.2 mg/dL (8.5-10.1); CARBON DIOXIDE 25 mmol/L (21-32); CHLORIDE 102 mmol/L (98-107); CREATININE 0.9 mg/dL (0.6-1.0); GFR 86.2; GLUCOSE 85 mg/dL (70-99); POTASSIUM 3.4 mmol/L (3.5-5.1); SODIUM 137 mmol/L (136-145)
[2017-06-20 17:52] LABS: TROPONINI < 0.017 ng/mL (0.000-0.055)
[2017-06-20 17:57] LABS: ALBUMIN 3.9 g/dL (3.4-5.0); ALK PHOS 44 U/L (46-116); ALT (SGPT) 14 U/L (14-59); AST (SGOT) 17 U/L (15-37); DIRECT BILIRUBIN 0.1 mg/dL (0.0-0.2); LIPASE 152 U/L (73-393); TOTAL BILIRUBIN 0.1 mg/dL (0.2-1.0); TOTAL PROTEIN 8.1 g/dL (6.4-8.2)
[2017-06-20 18:03] LABS: NT-PRO BNP 23 pg/mL (0-124)
[2017-06-20 18:03] LABS: CREATINE KINASE 47 U/L (26-192)
[2017-06-20 18:04] LABS: CKMB MASS < 0.5 ng/mL (0.0-3.6)
[2017-06-20 18:49] LABS: % BASOS 1 % (0-3); % EOS 1 % (0-5); % LYMPHS 37 % (24-48); % MONOS 9 % (0-10); % SEGS 52 % (35-66); PLT ESTIMATE ADEQUATE (ADEQUATE)
[2017-06-20 18:50] LABS: ANISOCYTOSIS MOD; OVALOCYTES FEW; POIKILOCYTOSIS SLIGHT
== END 2017-06-20 22:09 | disposition home or self-care (01) ==
LOC: ER 15:53
DX: K21.0 Gastro-esophageal reflux disease with esophagitis (principal); F41.9 Anxiety disorder, unspecified; F32.9 Major depressive disorder, single episode, unspecified; I47.1 Supraventricular tachycardia; Z86.73 Personal history of transient ischemic attack (TIA), and cerebral infarction without residual deficits; Z98.51 Tubal ligation status; Z88.6 Allergy status to analgesic agent; Z88.4 Allergy status to anesthetic agent; Z88.1 Allergy status to other antibiotic agents; Z88.5 Allergy status to narcotic agent; Z88.8 Allergy status to other drugs, medicaments and biological substances
CPT/HCPCS: 36415; 74022; 80048; 80076; 80307; 81001; 82553; 83690; 83880; 84484; 85007; 85025; 85379; 85610; 93005; 96360; 99285-25; J7030

== ENCOUNTER 2017-10-07 18:32 | Emergency (ER) | payer OTHER ==
[2017-10-07] MEDS: ASPIRIN CHEWABLE 81 MG TABLET. PO (19:28)
[2017-10-07 19:35] LABS: ADD MAN DIFF? NO
[2017-10-07 19:39] LABS: BASO % 1 % (0-3); EOS % 0 % (0-3); HEMATOCRIT 31.7 % (36.0-47.0); HEMOGLOBIN 10.5 g/dL (12.0-15.5); LYMPH # 0.8 x10^3/uL (1.0-4.8); LYMPH % 20 % (24-48); MEAN CORPUSCULAR HEMOGLOBIN 28 pg (25-35); MEAN CORPUSCULAR HGB CONC 33 g/dL (31-37); MEAN CORPUSCULAR VOLUME 85 fL (79-100); MONO # 0.3 x10^3/uL (0.0-1.1); MONO % 6 % (0-9); NEUT # 3.1 x10^3uL (1.8-7.7); NEUT % 73 % (31-73); PLATELET COUNT 281 x10^3/uL (140-400); RED BLOOD COUNT 3.74 x10^6/uL (3.50-5.40); RED CELL DISTRIBUTION WIDTH 16.9 % (11.5-14.5); WHITE BLOOD COUNT 4.2 x10^3/uL (4.0-11.0)
[2017-10-07 19:48] LABS: ANION GAP 10 (6-14); BLOOD UREA NITROGEN 7 mg/dL (7-20); CALCIUM 8.9 mg/dL (8.5-10.1); CARBON DIOXIDE 23 mmol/L (21-32); CHLORIDE 102 mmol/L (98-107); CREATININE 0.8 mg/dL (0.6-1.0); GFR 98.8; GLUCOSE 98 mg/dL (70-99); POTASSIUM 3.8 mmol/L (3.5-5.1); SODIUM 135 mmol/L (136-145)
[2017-10-07] MEDS: IV NORMAL SALINE 1000ML BAG 1,000 ML IV (19:50)
[2017-10-07 19:52] LABS: D-DIMER 0.58 ug/mlFEU (0.00-0.50)
[2017-10-07 19:53] LABS: PHOSPHORUS 3.5 mg/dL (2.6-4.7)
[2017-10-07 19:53] LABS: MAGNESIUM 2.1 mg/dL (1.8-2.4)
[2017-10-07 20:02] LABS: THYROID STIM HORMONE (TSH) 1.534 uIU/mL (0.358-3.74)
[2017-10-07 20:04] LABS: TROPONINI < 0.017 ng/mL (0.000-0.055)
[2017-10-07] MEDS ORDERED: CONTRAST GIVEN MC (20:45)
[2017-10-07] MEDS: IOHEXOL 300 MG/ML 100ML VIAL. IV (20:51)
== END 2017-10-07 21:15 | disposition home or self-care (01) ==
LOC: ER 18:32
DX: F41.9 Anxiety disorder, unspecified (principal); K21.9 Gastro-esophageal reflux disease without esophagitis; Z86.73 Personal history of transient ischemic attack (TIA), and cerebral infarction without residual deficits; Z98.51 Tubal ligation status
CPT/HCPCS: 36415; 71275; 80048; 83735; 84100; 84443; 84484; 85025; 85379; 93005; 96374; 99285-25; J2060; J7030; Q9967

== ENCOUNTER 2021-03-06 19:18 | Observation (INO) | payer BC, MEDICAID ==
[~2021-03-06] VITALS: Ht 170.2 cm; Wt 55.8 kg
[~2021-03-06 19:18] MED LIST changes: +ALPR0.5T PO; +CITA10TA8 PO; +CLIN-94 PO; -CLIN150C14 PO; +CLIN150C16 PO; -CLIN300C8 PO; +DOXY-181 PO; -DOXY100C14 PO; +ERGO400T2 PO; +ERGO500027 PO; -FERR-26 PO; +FERR325T14 PO; +LIDO700A21 TD; -LIDO700A39 TD; +METH4TAB2 PO; -OMEP40CA5 PO; +OMEP40CA7 PO; -OXYC-323 PO; +OXYC1TAB15 PO; -PANT40TA3 PO; +PANT40TA77 PO; +SUCR1TAB35 PO
[2021-03-06] MEDS ORDERED: IV NORMAL SALINE 1000ML BAG 1,000 ML IV ONE (19:30)
[2021-03-06 20:04] LABS: BASO # 0.1 x10^3/uL (0.0-0.2); BASO % 1 % (0-3); EOS % 1 % (0-3); HEMATOCRIT 30.8 % (36.0-47.0); HEMOGLOBIN 10.1 g/dL (12.0-15.5); LYMPH # 1.1 x10^3/uL (1.0-4.8); LYMPH % 21 % (24-48); MEAN CORPUSCULAR HEMOGLOBIN 29 pg (25-35); MEAN CORPUSCULAR HGB CONC 33 g/dL (31-37); MEAN CORPUSCULAR VOLUME 87 fL (79-100); MONO # 0.5 x10^3/uL (0.0-1.1); MONO % 9 % (0-9); NEUT # 3.6 x10^3/uL (1.8-7.7); NEUT % 68 % (31-73); PLATELET COUNT 385 x10^3/uL (140-400); RED BLOOD COUNT 3.54 x10^6/uL (3.50-5.40); RED CELL DISTRIBUTION WIDTH 19.9 % (11.5-14.5); WHITE BLOOD COUNT 5.4 x10^3/uL (4.0-11.0)
--- NOTE | 2021-03-06 20:10 | PHYS DOC ---
Past Medical History Past Medical History: Anemia, Anxiety, CVA, GERD, Stroke Additional Past Medical Histor: PFO Past Surgical History: Tubal ligation Additional Past Surgical Histo: D&C Smoking Status: Former Smoker Alcohol Use: None Drug Use: None General Adult EDM: Chief Complaint: VAGINAL BLEEDING HPI: HPI: Patient is a 41 year old who presents with states for the last week she has had a very heavy period going through 4 pads an hour. She states now she is having palpitations and dizziness and abdominal heavy pressure type pain. She also states that she is got this rash to the palms of her hands have been there for 2 weeks and then it peels but still there. She states is not itchy. Patient has history of anxiety, anemia, PFO, CVA, GERD, tubal ligation, SVT. Patient states she never got her PFO surgery done because she is highly allergic to nickel. Rates her discomfort at a 6 out of 10. It does not radiate. She states that she has a appointment with her wedding photographer next week. Review of Systems: Review of Systems: Constitutional: Denies fever or chills. [] Eyes: Denies change in visual acuity. [] HENT: Denies nasal congestion or sore throat. [] Respiratory: Denies cough or shortness of breath. [] Cardiovascular: Denies chest pain or edema. + Palpitations [] GI: + abdominal pain, denies nausea, vomiting, bloody stools or diarrhea. [] : Denies dysuria. + Heavy vaginal bleeding [] Musculoskeletal: Denies back pain or joint pain. [] Integument: Bilateral palm of hands rash. [] Neurologic: Denies headache, focal weakness or sensory changes. + Dizziness [] Endocrine: Denies polyuria or polydipsia. [] Lymphatic: Denies swollen glands. [] Psychiatric: Denies depression or anxiety. [] Heart Score: C/O Chest Pain: No HEART Score for Chest Pain: HEART Score for Chest Pain Response (Comments) Value History Slighlty/Non-Suspicious 0 ECG Nonspecific Repolarizatio 1 Age < 45 0 Risk Factors 1 or 2 Risk Factors 1 Troponin < Normal Limit 0 Total 2 Current Medications: Current Medications Medications (Trade) Dose Ordered Sig/Cassie Start Time Stop Time Status Last Admin Dose Admin Sodium Chloride 1,000 ml @ 1,000 mls/hr 1X ONCE 03/06/21 19:30 10/12/21 20:29 03/06/21 19:30 1,000 MLS/HR Allergies: Allergies: Allergies Coded Allergies Type Severity Reaction Last Updated Verified diphenhydramine Allergy Severe 02/04/17 Yes fentanyl Allergy Severe 05/09/17 Yes morphine Allergy Severe shortness of breath 11/21/17 Yes amoxicillin Allergy Intermediate hives 02/04/17 Yes clindamycin Allergy Intermediate 02/06/17 Yes doxycycline Allergy Intermediate 02/06/17 Yes hydrocodone Allergy Intermediate HIVES, tolerates Percocet 02/04/17 Yes ibuprofen Allergy Intermediate HIVES,tolerates aspirin 02/04/17 Yes metronidazole Allergy Intermediate 04/22/18 Yes nitroglycerin Allergy Intermediate 04/22/18 Yes paroxetine Adverse Reaction Unknown 04/24/18 Yes Uncoded Allergies Type Severity Reaction Last Updated Verified BUSBAR Allergy Unknown 03/06/21 Physical Exam: PE: Constitutional: Well developed, well nourished, no acute distress, non-toxic appearance. [] HENT: Normocephalic, atraumatic, bilateral external ears normal, oropharynx moist, no oral exudates, nose normal. [] Eyes: PERRLA, EOMI, conjunctiva normal, no discharge. [] Neck: Normal range of motion, no tenderness, supple, no stridor. [] Cardiovascular:Heart rate regular tachycardia rhythm, no murmur [] Lungs & Thorax: Bilateral breath sounds clear to auscultation [] Abdomen: Bowel sounds normal, soft, lower mid tenderness, no masses, no pulsatile masses. [] Skin: Warm, dry, no erythema, bilateral hands reddened nonraised rash. [] Back: No tenderness, no CVA tenderness. [] Extremities: No tenderness, no cyanosis, no clubbing, ROM intact, no edema. [] Neurologic: Alert and oriented X 3, normal motor function, normal sensory function, no focal deficits noted. [] Psychologic: Affect normal, judgement normal, mood normal. [] Current Patient Data: Labs: Laboratory Tests Test 03/06/21 19:56 White Blood Count 5.4 x10^3/uL (4.0-11.0) Red Blood Count 3.54 x10^6/uL (3.50-5.40) Hemoglobin 10.1 g/dL (12.0-15.5) L Hematocrit 30.8 % (36.0-47.0) L Mean Corpuscular Volume 87 fL (79-100) Mean Corpuscular Hemoglobin 29 pg (25-35) Mean Corpuscular Hemoglobin Concent 33 g/dL (31-37) Red Cell Distribution Width 19.9 % (11.5-14.5) H Platelet Count 385 x10^3/uL (140-400) Neutrophils (%) (Auto) 68 % (31-73) Lymphocytes (%) (Auto) 21 % (24-48) L Monocytes (%) (Auto) 9 % (0-9) Eosinophils (%) (Auto) 1 % (0-3) Basophils (%) (Auto) 1 % (0-3) Neutrophils # (Auto) 3.6 x10^3/uL (1.8-7.7) Lymphocytes # (Auto) 1.1 x10^3/uL (1.0-4.8) Monocytes # (Auto) 0.5 x10^3/uL (0.0-1.1) Eosinophils # (Auto) 0.0 x10^3/uL (0.0-0.7) Basophils # (Auto) 0.1 x10^3/uL (0.0-0.2) Laboratory Tests 03/06/21 19:56 Microbiology 03/06/21 Wet Prep - Final, Complete EKG: EK and read by Dr. Sutherland as sinus tachycardia but no STEMI Radiology/Procedures: Radiology/Procedures: [] Impression: [facility] [address] [place], [place] [id number] IMAGING REPORT Signed PATIENT: NARA SEGUNDO ACCOUNT: [id number] : 1980 LOCATION: ER AGE: 41 SEX: F EXAM STATUS: REG ER ORD. PHYSICIAN: TREVER ZAMORA APRN REASON: HEAVY VAGINAL BLEEDING, ABDOMINAL PAIN PROCEDURE: CT ABD PELV W/ IV CONTRST ONLY Exam: CT abdomen and pelvis with contrast INDICATION: Heavy vaginal bleeding, abdominal pain TECHNIQUE: Sequential axial images through the abdomen and pelvis obtained following the administration of 75 mL of Isovue-370 IV contrast. Sagittal and coronal reformatted images were reconstructed from the axial data and reviewed. Exposure: One or more of the following in the visualized dose reduction techniques were utilized for this examination: 1. Automated exposure control 2. Adjustment of the MA and/or KV according to patient size 3. Use of iterative of reconstructive technique Comparisons: None FINDINGS: Heart size is normal. No pericardial effusion. Visualized lung bases are clear. No pleural effusion. Liver, spleen, pancreas, gallbladder and adrenals are unremarkable. No perinephric inflammation or hydronephrosis. No renal or ureteral calculi are identified. Bladder is partially distended and not well evaluated. Uterus not enlarged. Mild endometrial thickening is noted. No abnormal adnexal mass. Large and small bowel are unremarkable. Appendix is normal. No free intra- abdominal air or fluid. No obstruction. Abdominal aorta has a normal course and caliber. Abdominal vasculature is patent. No enlarged intra-abdominal lymph nodes are identified. No suspicious osseous lesions or acute fractures. IMPRESSION: 1. Mild endometrial thickening not well assessed on CT. 2. Otherwise, no acute process identified in the abdomen or pelvis. Electronically signed by: Yen White MD (03/06/2021 9:13 PM) [facility] DICTATED and SIGNED BY: YEN WHITE MD DATE: 03/06/21 [id number] 0 Course & Med Decision Making: Course & Med Decision Making Pertinent Labs and Imaging studies reviewed. (See chart for details) See HPI. Patient had a run of sinus tach at 147 and her heart rate then went back down into the eighties. At the time of the sinus tach she started feeling pressure and shortness of breath in her chest. Alert and oriented x4. Amatory steady gait. Speaks in full clear sentences. Abdomen is soft but tender to the low mid abdomen. Skin pink warm and dry. Pelvic Exam: Housekeeper Home present Abdomen: low mid tenderness External Genitalia: Normal Skin Speculum: Normal vaginal mucosa, normal cervical discharge. Moderate blood Bimanual: No adnexal masses or tenderness, No CMT Patient is positive for syphilis. I talked to Dr. Fragoso who stated to start the patient on 2 g of Rocephin a day due to her many allergies. Spoke to Dr. Michael for admission. She will go to telemetry due to her SVT history, heavy vaginal bleeding. [] Dragon Disclaimer: Dragon Disclaimer: This electronic medical record was generated, in whole or in part, using a voice recognition dictation system. Departure Departure Impression: Primary Impression: Syphilis Additional Impressions: Rash and nonspecific skin eruption Vaginal bleeding UTI (urinary tract infection) Qualified Codes: N39.0 - Urinary tract infection, site not specified; R31.9 - Hematuria, unspecified Disposition: 09 ADMITTED INPATIENT Admitting Physician: DENIA Condition: STABLE Referrals: ALEXUS ROBLES (PCP) TREVER ZAMORA DIESEL POWER MECHANIC Mar 06, 2021 20:10
[2021-03-06 20:15] LABS: CALCIUM 8.7 mg/dL (8.5-10.1); GFR 74.7; POTASSIUM 3.7 mmol/L (3.5-5.1)
[2021-03-06 20:23] LABS: ALBUMIN 3.1 g/dL (3.4-5.0); ALBUMIN/GLOBULIN RATIO 0.7 (1.0-1.7); TOTAL BILIRUBIN 0.1 mg/dL (0.2-1.0); TOTAL PROTEIN 7.7 g/dL (6.4-8.2)
[2021-03-06] MEDS ORDERED: IOHEXOL 300 MG/ML 100ML VIAL. IV ONE (20:30)
[2021-03-06 20:43] LABS: PROTHROMBIN TIME PATIENT 13.6 SEC (11.7-14.0)
[2021-03-06] MEDS ORDERED: CONTRAST GIVEN. MC PRN (20:45)
--- NOTE | 2021-03-06 21:16 | RAD ---
Exam: CT abdomen and pelvis with contrast INDICATION: Heavy vaginal bleeding, abdominal pain TECHNIQUE: Sequential axial images through the abdomen and pelvis obtained following the administrati on of 75 mL of Isovue-370 IV contrast. Sagittal and coronal reformatted images were reconstructed fro m the axial data and reviewed. Exposure: One or more of the following in the visualized dose reduction techniques were utilized for this examination: 1. Automated exposure control 2. Adjustment of the MA and/or KV according to patient size 3. Use of iterative of reconstructive technique Comparisons: None FINDINGS: Heart size is normal. No pericardial effusion. Visualized lung bases are clear. No pleural effusion. Liver, spleen, pancreas, gallbladder and adrenals are unremarkable. No perinephric inflammation or hydronephrosis. No renal or ureteral calculi are identified. Bladder is partially distended and not well evaluated. Uterus not enlarged. Mild endometrial thickeni ng is noted. No abnormal adnexal mass. Large and small bowel are unremarkable. Appendix is normal. No free intra-abdominal air or fluid. No obstruction. Abdominal aorta has a normal course and caliber. Abdominal vasculature is patent. No enlarged intra-abdominal lymph nodes are identified. No suspicious osseous lesions or acute fractures. IMPRESSION: 1. Mild endometrial thickening not well assessed on CT. 2. Otherwise, no acute process identified in the abdomen or pelvis. Electronically signed by: Yen Snowden MD (03/06/2021 9:13 PM) [facility]
[2021-03-06] MEDS ORDERED: cefTRIAXone IV Push 1 GM VIAL. IVP ONE ×2 (22:00→22:30)
[2021-03-06] MEDS ORDERED: ACETAMINOPHEN 325 MG TABLET. PO PRN ×2 (22:00→23:00)
[2021-03-06] MEDS ORDERED: AZITHROMYCIN 250 MG TABLET. PO ONE (22:00)
[2021-03-06] MEDS ORDERED: METOPROLOL IV PUSH 5 MG/5 ML VIAL. IVP PRN (23:00)
[2021-03-06] MEDS ORDERED: guaiFENesin DM 200MG/20MG 10 ML SYRUP PO PRN (23:00)
[2021-03-06] MEDS ORDERED: ONDANSETRON PF 4 MG/2 ML VIAL. IVP PRN (23:00)
[2021-03-06 23:03] LABS: BILIRUBIN,URINE LARGE (NEG); CLARITY,URINE TURBID; COLOR,URINE RED; NITRITE,URINE POSITIVE (NEG); PH,URINE 5.5 (<5.0-8.0); PROTEIN,URINE 100 mg/dL (NEG-TRACE)
[2021-03-06 23:10] LABS: BACTERIA,URINE 0 /HPF (0-FEW); RBC,URINE TNTC /HPF (0-2); WBC,URINE 20-40 /HPF (0-4)
[2021-03-06 23:11] LABS: AMORPHOUS SEDIMENT,UR PRESENT /HPF
[2021-03-07] VITALS (7 sets, daily range): BP systolic 123–151; BP diastolic 61–86
[2021-03-07 10:35] LABS: U PREG PATIENT NEGATIVE (NEG)
[2021-03-07] MEDS: FERROUS SULFATE 325 MG TABLET. PO SCH (10:41)
[2021-03-07] MEDS ORDERED: VENL75CA6 PO (10:44)
[2021-03-07] MEDS ORDERED: PANT40TA6 PO (10:44)
--- NOTE | 2021-03-07 10:47 | PDOC1 ---
History and Physical Date of Admission Date of Admission DATE: 03/07/21 TIME: 10:22 Identification/Chief Complaint Chief Complaint Abdominal pain, vaginal bleeding Source Source: Patient History of Present Illness History of Present Illness Patient 41-year-old female with past medical history uterine fibroids, GERD, SVT, PFO, who presents to the ED with complaints of heavy menstrual bleeding for the past 12 days. States she has been requiring four pads per day, and notes associated lower abdominal pain. She also reports a nonpruritic rash to the palms of her hands for the past two weeks. Labs in the ED showed hemoglobin 10.1, hematocrit 30.8, sodium 134, albumin 3.1. Her treponema pallidum test is reactive, HIV negative. CT abdomen/pelvis showed mild endometrial thickening not well assessed on CT. She received Rocephin and azithromycin in the ED. Will admit patient further medical management. Past Medical History Cardiovascular: Hyperlipidemia, Other Pulmonary: Asthma CENTRAL NERVOUS SYSTEM: CVA GI: GERD Heme/Onc: No pertinent hx Hepatobiliary: No pertinent hx Psych: Anxiety Rheumatologic: No pertinent hx Infectious disease: No pertinent hx Renal/: No pertinent hx Endocrine: No pertinent hx Past Surgical History Past Surgical History Polypectomy, tubal ligation Past Surgical History: Tubal Ligation Family History Family History Uterine fibroids Family History: Hypertension, Other Social History Smoke: No ALCOHOL: occassional Drugs: None Current Problem List Problem List Problems Medical Problems: (1) Rash and nonspecific skin eruption Status: Acute (2) Syphilis Status: Acute (3) UTI (urinary tract infection) Status: Acute (4) Vaginal bleeding Status: Acute Current Medications Current Medications Current Medications Sodium Chloride 1,000 ml @ 1,000 mls/hr 1X ONCE IV Last administered on 03/06/21at 19:30; Start 03/06/21 at 19:30; Stop 03/06/21 at 20:29; Status DC Iohexol (Omnipaque 300 Mg/ml) 75 ml 1X ONCE IV Last administered on 03/06/21at 20:43; Start 03/06/21 at 20:30; Stop 03/06/21 at 20:39; Status DC Info (CONTRAST GIVEN -- Rx MONITORING) 1 each PRN DAILY PRN MC SEE COMMENTS; Start 03/06/21 at 20:45; Stop 03/08/21 at 20:44 Ceftriaxone Sodium (Rocephin) 1 gm 1X ONCE IVP ; Start 03/06/21 at 22:00; Stop 03/06/21 at 22:01; Status Cancel Azithromycin (Zithromax) 1,000 mg 1X ONCE PO Last administered on 03/06/21at 23:32; Start 03/06/21 at 22:00; Stop 03/06/21 at 22:01; Status DC Ceftriaxone Sodium (Rocephin) 2 gm 1X ONCE IVP Last administered on 03/06/21at 23:37; Start 03/06/21 at 22:30; Stop 03/06/21 at 22:31; Status DC Acetaminophen (Tylenol) 650 mg PRN Q4HRS PRN PO FEVER > 100.3'F; Start 03/06/21 at 22:00; Stop 03/06/21 at 22:57; Status DC Acetaminophen (Tylenol) 650 mg PRN Q6HRS PRN PO FEVER > 100.3'F Last administered on 03/06/21at 23:32; Start 03/06/21 at 23:00 Ceftriaxone Sodium (Rocephin) 2 gm Q24H IVP ; Start 03/07/21 at 21:00; Stop 03/07/21 at 09:52; Status DC Guaifenesin (Robitussin Dm) 10 ml PRN Q6HRS PRN PO COUGH; Start 03/06/21 at 23:00 Ondansetron HCl (Zofran) 4 mg PRN Q4HRS PRN IVP NAUSEA/VOMITING 1ST CHOICE; Start 03/06/21 at 23:00 Metoprolol Tartrate (Lopressor Vial) 5 mg PRN Q6HRS PRN IVP HYPERTENSION; Start 03/06/21 at 23:00 Doxycycline Hyclate (Vibra-Tab) 100 mg BID PO ; Start 03/07/21 at 21:00; Status UNV Active Scripts Active Reported Vitamin D2 (Ergocalciferol (Vitamin D2)) 400 Unit Tablet 400 Unit PO DAILY Xanax (Alprazolam) 0.5 Mg Tablet 1 Tab PO BID PRN Tylenol (Acetaminophen) 325 Mg Tablet 650 Mg PO PRN Q6-8HRS PRN Ferrous Sulfate 325 Mg Tablet 1 Tab PO DAILY Allergies Allergies: Coded Allergies: diphenhydramine (Verified Allergy, Severe, 02/04/17) SVT fentanyl (Verified Allergy, Severe, 05/09/17) low BP morphine (Verified Allergy, Severe, shortness of breath, 11/21/17) Tolerates oxycodone and tramadol nickel (Verified Allergy, Severe, Hives, 03/07/21) hives, itching, amoxicillin (Verified Allergy, Intermediate, hives, 02/04/17) buspirone (Verified Allergy, Intermediate, 03/06/21) clindamycin (Verified Allergy, Intermediate, 02/06/17) doxycycline (Verified Allergy, Intermediate, 02/06/17) hydrocodone (Verified Allergy, Intermediate, HIVES, tolerates Percocet, 02/04/17) ibuprofen (Verified Allergy, Intermediate, HIVES,tolerates aspirin, 02/04/17) metronidazole (Verified Allergy, Intermediate, 04/22/18) nitroglycerin (Verified Allergy, Intermediate, 04/22/18) paroxetine (Verified Adverse Reaction, Intermediate, 03/06/21) ROS Review of System GENERAL: No history of weight change, weakness or fevers. SKIN: Rash to bilateral palms. No bruising or hair changes. EYES: No blurred, double or loss of vision. NOSE AND THROAT: No history of nosebleeds, hoarseness or sore throat. HEART: Denies chest pain, denies palpitations. LUNGS: Denies cough, hemoptysis, wheezing or shortness of breath. GASTROINTESTINAL: Abdominal pain. Denies nausea or vomiting. GENITOURINARY: Vaginal bleeding. Denies dysuria, frequency, urgency, hematuria. NEUROLOGIC: Denies history of numbness, tingling, tremor or weakness. PSYCHIATRIC: Denies anxiety, denies depression. ENDOCRINE: No history of heat or cold intolerance, polyuria or polydipsia. EXTREMITIES: Joint pain. Denies muscle weakness, pain on walking, or stiffness. Physical Exam Physical Exam General: Alert, Oriented X3, Cooperative, No acute distress HEENT: PERRLA, EOMI Lungs: Clear to auscultation, Normal air movement Heart: RRR, no murmurs Cardiovascular: S1, S2 Abdomen: Suprapubic tenderness. Normal bowel sounds, Soft. Extremities: No clubbing, No cyanosis Skin: Reddish-brown rash to the palmar aspects of both hands. No significant lesion. Neuro: Normal speech, Normal tone, Sensation intact Psych/Mental Status: Mental status NL, Mood NL Vitals Vitals Vital Signs Date Time Temp Pulse Resp B/P (MAP) Pulse Ox O2 Delivery O2 Flow Rate FiO2 03/07/21 07:45 98.4 77 16 131/85 (100) 97 Room Air 98.4 03/06/21 21:15 97.0 Labs Labs Laboratory Tests Test 03/06/21 19:56 03/06/21 20:24 03/06/21 22:56 White Blood Count 5.4 x10^3/uL (4.0-11.0) Red Blood Count 3.54 x10^6/uL (3.50-5.40) Hemoglobin 10.1 g/dL (12.0-15.5) Hematocrit 30.8 % (36.0-47.0) Mean Corpuscular Volume 87 fL (79-100) Mean Corpuscular Hemoglobin 29 pg (25-35) Mean Corpuscular Hemoglobin Concent 33 g/dL (31-37) Red Cell Distribution Width 19.9 % (11.5-14.5) Platelet Count 385 x10^3/uL (140-400) Neutrophils (%) (Auto) 68 % (31-73) Lymphocytes (%) (Auto) 21 % (24-48) Monocytes (%) (Auto) 9 % (0-9) Eosinophils (%) (Auto) 1 % (0-3) Basophils (%) (Auto) 1 % (0-3) Neutrophils # (Auto) 3.6 x10^3/uL (1.8-7.7) Lymphocytes # (Auto) 1.1 x10^3/uL (1.0-4.8) Monocytes # (Auto) 0.5 x10^3/uL (0.0-1.1) Eosinophils # (Auto) 0.0 x10^3/uL (0.0-0.7) Basophils # (Auto) 0.1 x10^3/uL (0.0-0.2) Sodium Level 134 mmol/L (136-145) Potassium Level 3.7 mmol/L (3.5-5.1) Chloride Level 101 mmol/L (98-107) Carbon Dioxide Level 25 mmol/L (21-32) Anion Gap 8 (6-14) Blood Urea Nitrogen 12 mg/dL (7-20) Creatinine 1.0 mg/dL (0.6-1.0) Estimated GFR (Cockcroft-Gault) 74.7 BUN/Creatinine Ratio 12 (6-20) Glucose Level 92 mg/dL (70-99) Calcium Level 8.7 mg/dL (8.5-10.1) Magnesium Level 1.8 mg/dL (1.8-2.4) Total Bilirubin 0.1 mg/dL (0.2-1.0) Aspartate Amino Transf (AST/SGOT) 19 U/L (15-37) Alanine Aminotransferase (ALT/SGPT) 17 U/L (14-59) Alkaline Phosphatase 66 U/L (46-116) Troponin I Quantitative < 0.017 ng/mL (0.000-0.055) Total Protein 7.7 g/dL (6.4-8.2) Albumin 3.1 g/dL (3.4-5.0) Albumin/Globulin Ratio 0.7 (1.0-1.7) Thyroid Stimulating Hormone (TSH) 1.602 uIU/mL (0.358-3.74) Treponema pallidum Antibody Reactive (Nonreactive) HIV (1&2) Antibody Screen Nonreactive (Nonreactive) Prothrombin Time 13.6 SEC (11.7-14.0) Prothromb Time International Ratio 1.0 (0.8-1.1) Activated Partial Thromboplast Time 39 SEC (24-38) D-Dimer (Stella) 0.41 ug/mlFEU (0.00-0.50) Urine Collection Type Unknown Urine Color Red Urine Clarity Turbid Urine pH 5.5 (<5.0-8.0) Urine Specific [place] >=1.030 (1.000-1.030) Urine Protein 100 mg/dL (NEG-TRACE) Urine Glucose (UA) Negative mg/dL (NEG) Urine Ketones (Stick) 15 mg/dL (NEG) Urine Blood Large (NEG) Urine Nitrite Positive (NEG) Urine Bilirubin Large (NEG) Urine Urobilinogen Dipstick 1.0 mg/dL (0.2 mg/dL) Urine Leukocyte Esterase Large (NEG) Urine RBC Tntc /HPF (0-2) Urine WBC 20-40 /HPF (0-4) Urine Squamous Epithelial Cells Many /LPF Urine Amorphous Sediment Present /HPF Urine Bacteria 0 /HPF (0-FEW) Laboratory Tests Test 03/06/21 19:56 03/06/21 20:24 03/06/21 22:56 White Blood Count 5.4 x10^3/uL (4.0-11.0) Red Blood Count 3.54 x10^6/uL (3.50-5.40) Hemoglobin 10.1 g/dL (12.0-15.5) Hematocrit 30.8 % (36.0-47.0) Mean Corpuscular Volume 87 fL (79-100) Mean Corpuscular Hemoglobin 29 pg (25-35) Mean Corpuscular Hemoglobin Concent 33 g/dL (31-37) Red Cell Distribution Width 19.9 % (11.5-14.5) Platelet Count 385 x10^3/uL (140-400) Neutrophils (%) (Auto) 68 % (31-73) Lymphocytes (%) (Auto) 21 % (24-48) Monocytes (%) (Auto) 9 % (0-9) Eosinophils (%) (Auto) 1 % (0-3) Basophils (%) (Auto) 1 % (0-3) Neutrophils # (Auto) 3.6 x10^3/uL (1.8-7.7) Lymphocytes # (Auto) 1.1 x10^3/uL (1.0-4.8) Monocytes # (Auto) 0.5 x10^3/uL (0.0-1.1) Eosinophils # (Auto) 0.0 x10^3/uL (0.0-0.7) Basophils # (Auto) 0.1 x10^3/uL (0.0-0.2) Sodium Level 134 mmol/L (136-145) Potassium Level 3.7 mmol/L (3.5-5.1) Chloride Level 101 mmol/L (98-107) Carbon Dioxide Level 25 mmol/L (21-32) Anion Gap 8 (6-14) Blood Urea Nitrogen 12 mg/dL (7-20) Creatinine 1.0 mg/dL (0.6-1.0) Estimated GFR (Cockcroft-Gault) 74.7 BUN/Creatinine Ratio 12 (6-20) Glucose Level 92 mg/dL (70-99) Calcium Level 8.7 mg/dL (8.5-10.1) Magnesium Level 1.8 mg/dL (1.8-2.4) Total Bilirubin 0.1 mg/dL (0.2-1.0) Aspartate Amino Transf (AST/SGOT) 19 U/L (15-37) Alanine Aminotransferase (ALT/SGPT) 17 U/L (14-59) Alkaline Phosphatase 66 U/L (46-116) Troponin I Quantitative < 0.017 ng/mL (0.000-0.055) Total Protein 7.7 g/dL (6.4-8.2) Albumin 3.1 g/dL (3.4-5.0) Albumin/Globulin Ratio 0.7 (1.0-1.7) Thyroid Stimulating Hormone (TSH) 1.602 uIU/mL (0.358-3.74) Treponema pallidum Antibody Reactive (Nonreactive) HIV (1&2) Antibody Screen Nonreactive (Nonreactive) Prothrombin Time 13.6 SEC (11.7-14.0) Prothromb Time International Ratio 1.0 (0.8-1.1) Activated Partial Thromboplast Time 39 SEC (24-38) D-Dimer (Stella) 0.41 ug/mlFEU (0.00-0.50) Urine Collection Type Unknown Urine Color Red Urine Clarity Turbid Urine pH 5.5 (<5.0-8.0) Urine Specific [place] >=1.030 (1.000-1.030) Urine Protein 100 mg/dL (NEG-TRACE) Urine Glucose (UA) Negative mg/dL (NEG) Urine Ketones (Stick) 15 mg/dL (NEG) Urine Blood Large (NEG) Urine Nitrite Positive (NEG) Urine Bilirubin Large (NEG) Urine Urobilinogen Dipstick 1.0 mg/dL (0.2 mg/dL) Urine Leukocyte Esterase Large (NEG) Urine RBC Tntc /HPF (0-2) Urine WBC 20-40 /HPF (0-4) Urine Squamous Epithelial Cells Many /LPF Urine Amorphous Sediment Present /HPF Urine Bacteria 0 /HPF (0-FEW) Images Images PATIENT: NARA SEGUNDO ACCOUNT: [id number] : 1980 LOCATION: ER AGE: 41 SEX: F EXAM STATUS: REG ER ORD. PHYSICIAN: TREVER ZAMORA APRN REASON: HEAVY VAGINAL BLEEDING, ABDOMINAL PAIN PROCEDURE: CT ABD PELV W/ IV CONTRST ONLY Exam: CT abdomen and pelvis with contrast INDICATION: Heavy vaginal bleeding, abdominal pain TECHNIQUE: Sequential axial images through the abdomen and pelvis obtained following the administration of 75 mL of Isovue-370 IV contrast. Sagittal and coronal reformatted images were reconstructed from the axial data and reviewed. Exposure: One or more of the following in the visualized dose reduction techniques were utilized for this examination: 1. Automated exposure control 2. Adjustment of the MA and/or KV according to patient size 3. Use of iterative of reconstructive technique Comparisons: None FINDINGS: Heart size is normal. No pericardial effusion. Visualized lung bases are clear. No pleural effusion. Liver, spleen, pancreas, gallbladder and adrenals are unremarkable. No perinephric inflammation or hydronephrosis. No renal or ureteral calculi are identified. Bladder is partially distended and not well evaluated. Uterus not enlarged. Mild endometrial thickening is noted. No abnormal adnexal mass. Large and small bowel are unremarkable. Appendix is normal. No free intra- abdominal air or fluid. No obstruction. Abdominal aorta has a normal course and caliber. Abdominal vasculature is paten t. No enlarged intra-abdominal lymph nodes are identified. No suspicious osseous lesions or acute fractures. IMPRESSION: 1. Mild endometrial thickening not well assessed on CT. 2. Otherwise, no acute process identified in the abdomen or pelvis. VTE Prophylaxis Ordered VTE Prophylaxis Devices: Yes VTE Pharmacological Prophylaxi: No Assessment/Plan Assessment/Plan Secondary syphilis Dysfunctional uterine bleeding History of SVT History of PFO GERD Plan: Consultations been placed to ID Patient was initiated on 2 g Rocephin daily; further antibiotic management per ID. Consultation placed to FLIGHT ENGINEER MANAGER; suspect heavy menstrual bleeding secondary to uterine fibroids. Will likely require fibroidectomy in near future. Tylenol for pain due to stated numerous allergies Resume home medications FEN - Cardiac diet PPX - SCDs due to active urine bleeding FULL CODE Dispo - inpatient for above Surrogate decision maker is her sister (Estelle Merida) Justifications for Admission Other Justification DIXIE VERDIN MD Mar 07, 2021 10:47
[2021-03-07] MEDS ORDERED: ONDANSETRON PF 4 MG/2 ML VIAL. IVP PRN (11:00)
[2021-03-07] MEDS ORDERED: CALCIUM CARBONATE 500 MG TAB.CHEW PO PRN (11:00)
[2021-03-07] MEDS ORDERED: MAG HYDROX/ALUMINUM HYD/SIMETH 30 ML ORAL.SUSP PO PRN (11:00)
[2021-03-07] MEDS: DOXYCYCLINE HYCLATE 100 MG TABLET PO SCH ×2 (11:50→21:56)
[2021-03-07] MEDS: PANTOPRAZOLE 40 MG TABLET.DR. PO SCH (11:50)
[2021-03-07] MEDS: VENLAFAXINE XR 37.5 MG CAP.ER.24H. PO SCH (11:50)
--- NOTE | 2021-03-07 16:00 | NUR ---
SS following for discharge planning. SS reviewed pt chart and discussed with pt RN. Pt is from home and is currently on room air. ID and Gynecology consulted. Discharge plan is currently to home when medically ready for discharge. SS will continue to follow for discharge planning.
[2021-03-07] MEDS: ACETAMINOPHEN 325 MG TABLET. PO PRN ×2 (16:47→23:08)
[2021-03-07] MEDS: ALPRAZolam 0.5 MG TABLET PO PRN ×2 (16:47→23:08)
--- NOTE | 2021-03-07 17:11 | CONS ---
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 HISTORY OF PRESENT ILLNESS: This is a 41-year-old -[place] female who came into the Emergency Room with vaginal bleed that has been going on for a few days, she says. The patient had noticed rash on her palms almost a month ago. 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 The patient denies any fever. Denies any vaginal discharge. Denies any nausea, vomiting or diarrhea. PAST MEDICAL HISTORY: Positive for PFO, CVA, gastroesophageal reflux disease, tubal ligation, low WBC. She had been following with Dr. Siddiqui . She says she has never had syphilis or any STD in the past. SOCIAL HISTORY: Negative for smoking. No alcohol use or drug use. On further questioning of sexual partners, she says she has not even had sex for 1 year. ALLERGIES: LISTED ALLERGIC TO AMPICILLIN, PENICILLIN, CLINDAMYCIN. IN HER LIST, THERE WAS NO DOXYCYCLINE, BUT THIS COMPUTER LIST SAYS DOXYCYCLINE AND METRONIDAZOLE. REVIEW OF SYSTEMS: As in HPI. All other systems reviewed are negative. PHYSICAL EXAMINATION: GENERAL: Alert, oriented female, not in distress. VITAL SIGNS: Stable, afebrile. HEENT: NAD. NECK: Supple, no JVP, no lymphadenopathy. LUNGS: Clear. HEART: S1, S2, regular. ABDOMEN: Soft, nontender, no organomegaly. EXTREMITIES: No edema or cyanosis. She does have a rash under the hand and sole typical of secondary syphilis. All other areas on the body is too dark to be able to appreciate any change. NEUROLOGIC: The patient is alert, awake, and appropriate. No focal neurologic deficit. LABORATORY DATA: White count is normal. BUN and creatinine is normal. Urinalysis showed 20-40 wbc's, lots of blood. Abdominopelvic CT done, which was unremarkable. IMPRESSION: 1. Rash on the palms and soles. They do look like secondary syphilis, although she says she has not had any sex for 1 year. That makes it unlikely to be syphilis if she is truthful about her sexual history. She does have syphilis serology positive. RPR is pending. She said she had syphilis test done in 2019 and it was negative. She did have a gonorrhea and HIV done in the past, but not syphilis test at least in our records. 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 2. Vaginal bleed. 3. Gastroesophageal reflux disease. RECOMMENDATIONS: I would probably use doxycycline and from the infectious disease standpoint of view, the patient can be discharged. Just correction, doxycycline is not listed in her allergies that she showed me on her phone, although it is listed in this computer. Thank you very much, Dr. Michael, for giving me opportunity to participate in this patient's care. AURY/ISAK/RADHA DR: AURY/william TID: [id number] PERNELL
[2021-03-07] MEDS ORDERED: medroxyPROGESTERone IM 150 MG/ML VIAL. IM ONE (18:00)
--- NOTE | 2021-03-07 19:55 | NUR ---
Pt in bed assessment completed vss poc explained pt c/o lower abd pain and a fullness in her head, pt refused to take depo pt want to talk with Dr. Mark in dept prior to taking. Pt Hr elevated at 130's pt stated she is concerned and wanted to speak with primary for further work up will resume care and continue to monitor pt. Call light in reach.
[2021-03-07] MEDS ORDERED: cefTRIAXone IV Push 2 GM VIAL. IVP SCH (21:00)
[2021-03-07] MEDS: LACTOBACILLUS RHAMNOSUS GG 1 CAPSULE. PO SCH (21:56)
[2021-03-08 03:00] VITALS: BP 149/72
[2021-03-08] MEDS: PANTOPRAZOLE 40 MG TABLET.DR. PO SCH (06:19)
[2021-03-08 07:00] VITALS: BP 128/79
--- NOTE | 2021-03-08 09:03 | PDOC ---
[facility] [facility] [facility]GRESS NOTE Date of Service DOS: DATE: 03/08/21 TIME: 09:00 Chief Complaint Chief Complaint Secondary syphilis Dysfunctional uterine bleeding History of SVT History of PFO GERD Plan: Consultations been placed to ID Patient was initiated on 2 g Rocephin daily; further antibiotic management per ID. Consultation placed to TELECOMMUNICATIONS FIELD ENGINEER; suspect heavy menstrual bleeding secondary to uterine fibroids. Will likely require fibroidectomy in near future. Tylenol for pain due to stated numerous allergies Resume home medications FEN - Cardiac diet PPX - SCDs due to active urine bleeding FULL CODE Dispo - inpatient for above Surrogate decision maker is her sister (Estelle Merida) History of Present Illness History of Present Illness Patient 41-year-old female with past medical history uterine fibroids, GERD, SVT, PFO, who presents to the ED with complaints of heavy menstrual bleeding for the past 12 days. States she has been requiring four pads per day, and notes associated lower abdominal pain. She also reports a nonpruritic rash to the palms of her hands for the past two weeks. Labs in the ED showed hemoglobin 10.1, hematocrit 30.8, sodium 134, albumin 3.1. Her treponema pallidum test is reactive, HIV negative. CT abdomen/pelvis showed mild endometrial thickening n ot well assessed on CT. She received Rocephin and azithromycin in the ED. Will admit patient further medical management. 03/08: Tolerated doxycycline well overnight. No complaints this morning. Discussed with Dr. Fragoso, will discharge on doxycycline twice daily for 10 days. Greater than 30 minutes spent managing the discharge of this patient. Vitals/I&O Vitals/I&O: Vital Signs Date Time Temp Pulse Resp B/P (MAP) Pulse Ox O2 Delivery O2 Flow Rate FiO2 03/08/21 07:00 98.0 94 20 128/79 (95) 93 Nasal Cannula 98.0 I & O 03/07/21 03/07/21 03/08/21 15:00 23:00 07:00 Intake Total 820 ml 300 ml Output Total 1000 ml 600 ml Balance -180 ml -600 ml 300 ml Physical Exam General: Alert, Oriented X3, Cooperative, No acute distress Heart: Regular rate Lungs: Clear, Other Abdomen: Soft, No tenderness Extremities: No clubbing, No cyanosis Skin: Other (Reddish-brown rash to the palmar aspects of both hands) Assessment and Plan Assessmemt and Plan Problems Medical Problems: (1) Rash and nonspecific skin eruption Status: Acute (2) Syphilis Status: Acute (3) UTI (urinary tract infection) Status: Acute (4) Vaginal bleeding Status: Acute Comment Review of Relevant I have reviewed the following items janet (where applicable) has been applied. Medications: Current Medications Medications (Trade) Dose Ordered Sig/Cassie Route PRN Reason Start Time Stop Time Status Last Admin Dose Admin Doxycycline Hyclate (Vibra-Tab) 100 mg BID PO 03/07/21 12:00 03/07/21 21:56 Alprazolam (Xanax) 0.5 mg PRN BID PRN PO ANXIETY / AGITATION 03/07/21 10:30 03/07/21 23:08 Ferrous Sulfate (Feosol) 325 mg DAILY PO 03/07/21 11:30 03/07/21 10:41 Acetaminophen (Tylenol) 650 mg PRN Q6HRS PRN PO Headaches, Temp > 101.5F 03/07/21 11:00 03/07/21 23:08 Pantoprazole Sodium (Protonix) 40 mg DAILYAC PO 03/07/21 11:30 03/08/21 06:19 Venlafaxine HCl (Effexor Xr) 75 mg DAILY PO 03/07/21 11:30 03/07/21 11:50 Lactobacillus Rhamnosus (Culturelle) 1 cap BID PO 03/07/21 21:00 03/07/21 21:56 Justifications for Admission General Conditions Other justification for admit: Secondary syphilis, dysfunctional uterine bleeding, SVT Other Justification DIXIE VERDIN MD Mar 08, 2021 09:03
--- NOTE | 2021-03-08 09:05 | PDOC ---
Infectious Disease Note Subjective Subjective Patient is feeling good ROS ROS No nausea vomiting diarrhea chest pain shortness of breath Vital Sign Vital Signs Vital Signs Date Time Temp Pulse Resp B/P (MAP) Pulse Ox O2 Delivery O2 Flow Rate FiO2 03/08/21 07:00 98.0 94 20 128/79 (95) 93 Nasal Cannula 98.0 Physical Exam PHYSICAL EXAM GENERAL: Alert, oriented female, not in distress. VITAL SIGNS: Stable, afebrile. HEENT: NAD. NECK: Supple, no JVP, no lymphadenopathy. LUNGS: Clear. HEART: S1, S2, regular. ABDOMEN: Soft, nontender, no organomegaly. EXTREMITIES: No edema or cyanosis. She does have a rash under the hand and sole typical of secondary syphilis. All other areas on the body is too dark to be able to appreciate any change. NEUROLOGIC: The patient is alert, awake, and appropriate. No focal neurologic deficit. Labs Micro Microbiology 03/06/21 Urine Culture - Final, Complete 03/06/21 Blood Culture - Preliminary, Resulted NO GROWTH AFTER 1 DAY 03/06/21 Wet Prep - Final, Complete Objective Assessment 1. Rash on the hands and palms. They do look like secondary syphilis, although she says she has not had any sex for 1 year. That makes it unlikely to be syphilis. She does have syphilis serology positive. RPR is pending. She said she had syphilis test done in 2019 and it was negative. She did have a gonorrhea and HIV done in the past, but not at least in our records. I do not see it. 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 2. Vaginal bleed. 3. Gastroesophageal reflux disease. Plan Plan of Care RPR is pending patient is tolerating doxy without any problem patient can be discharged on doxycycline for 10 days and follow-up with me in the office for with RPR and further management JAMES PRATT MD Mar 08, 2021 09:05
[2021-03-08] MEDS: LACTOBACILLUS RHAMNOSUS GG 1 CAPSULE. PO SCH (10:16)
[2021-03-08] MEDS: DOXYCYCLINE HYCLATE 100 MG TABLET PO SCH (10:16)
[2021-03-08] MEDS: FERROUS SULFATE 325 MG TABLET. PO SCH (10:16)
[2021-03-08] MEDS: ALPRAZolam 0.5 MG TABLET PO PRN (10:16)
[2021-03-08] MEDS: VENLAFAXINE XR 37.5 MG CAP.ER.24H. PO SCH (10:16)
--- NOTE | 2021-03-08 10:29 | PDOC3 ---
Discharge Summary Visit Information Date of Admission: Mar 07, 2021 Date of Discharge: Mar 08, 2021 Final Diagnosis Problems Medical Problems: (1) Rash and nonspecific skin eruption Status: Acute (2) Syphilis Status: Acute (3) UTI (urinary tract infection) Status: Acute (4) Vaginal bleeding Status: Acute Brief Hospital Course Allergies Allergies Coded Allergies Type Severity Reaction Last Updated Verified diphenhydramine Allergy Severe 02/04/17 Yes fentanyl Allergy Severe 05/09/17 Yes morphine Allergy Severe shortness of breath 11/21/17 Yes nickel Allergy Severe Hives 03/07/21 Yes amoxicillin Allergy Intermediate hives 02/04/17 Yes buspirone Allergy Intermediate 03/06/21 Yes clindamycin Allergy Intermediate 02/06/17 Yes hydrocodone Allergy Intermediate HIVES, tolerates Percocet 02/04/17 Yes ibuprofen Allergy Intermediate HIVES,tolerates aspirin 02/04/17 Yes metronidazole Allergy Intermediate 04/22/18 Yes nitroglycerin Allergy Intermediate 04/22/18 Yes paroxetine Adverse Reaction Intermediate 03/06/21 Yes Vital Signs Vital Signs Date Time Temp Pulse Resp B/P (MAP) Pulse Ox O2 Delivery O2 Flow Rate FiO2 03/08/21 07:00 98.0 94 20 128/79 (95) 93 Nasal Cannula 98.0 Lab Results Laboratory Tests Test 03/06/21 19:56 03/06/21 20:24 03/06/21 22:56 03/06/21 23:56 White Blood Count 5.4 x10^3/uL (4.0-11.0) Red Blood Count 3.54 x10^6/uL (3.50-5.40) Hemoglobin 10.1 g/dL (12.0-15.5) Hematocrit 30.8 % (36.0-47.0) Mean Corpuscular Volume 87 fL (79-100) Mean Corpuscular Hemoglobin 29 pg (25-35) Mean Corpuscular Hemoglobin Concent 33 g/dL (31-37) Red Cell Distribution Width 19.9 % (11.5-14.5) Platelet Count 385 x10^3/uL (140-400) Neutrophils (%) (Auto) 68 % (31-73) Lymphocytes (%) (Auto) 21 % (24-48) Monocytes (%) (Auto) 9 % (0-9) Eosinophils (%) (Auto) 1 % (0-3) Basophils (%) (Auto) 1 % (0-3) Neutrophils # (Auto) 3.6 x10^3/uL (1.8-7.7) Lymphocytes # (Auto) 1.1 x10^3/uL (1.0-4.8) Monocytes # (Auto) 0.5 x10^3/uL (0.0-1.1) Eosinophils # (Auto) 0.0 x10^3/uL (0.0-0.7) Basophils # (Auto) 0.1 x10^3/uL (0.0-0.2) Sodium Level 134 mmol/L (136-145) Potassium Level 3.7 mmol/L (3.5-5.1) Chloride Level 101 mmol/L (98-107) Carbon Dioxide Level 25 mmol/L (21-32) Anion Gap 8 (6-14) Blood Urea Nitrogen 12 mg/dL (7-20) Creatinine 1.0 mg/dL (0.6-1.0) Estimated GFR (Cockcroft-Gault) 74.7 BUN/Creatinine Ratio 12 (6-20) Glucose Level 92 mg/dL (70-99) Calcium Level 8.7 mg/dL (8.5-10.1) Magnesium Level 1.8 mg/dL (1.8-2.4) Total Bilirubin 0.1 mg/dL (0.2-1.0) Aspartate Amino Transf (AST/SGOT) 19 U/L (15-37) Alanine Aminotransferase (ALT/SGPT) 17 U/L (14-59) Alkaline Phosphatase 66 U/L (46-116) Troponin I Quantitative < 0.017 ng/mL (0.000-0.055) Total Protein 7.7 g/dL (6.4-8.2) Albumin 3.1 g/dL (3.4-5.0) Albumin/Globulin Ratio 0.7 (1.0-1.7) Thyroid Stimulating Hormone (TSH) 1.602 uIU/mL (0.358-3.74) Treponema pallidum Antibody Reactive (Nonreactive) HIV (1&2) Antibody Screen Nonreactive (Nonreactive) Prothrombin Time 13.6 SEC (11.7-14.0) Prothromb Time International Ratio 1.0 (0.8-1.1) Activated Partial Thromboplast Time 39 SEC (24-38) D-Dimer (Stella) 0.41 ug/mlFEU (0.00-0.50) Urine Collection Type Unknown Urine Color Red Urine Clarity Turbid Urine pH 5.5 (<5.0-8.0) Urine Specific [place] >=1.030 (1.000-1.030) Urine Protein 100 mg/dL (NEG-TRACE) Urine Glucose (UA) Negative mg/dL (NEG) Urine Ketones (Stick) 15 mg/dL (NEG) Urine Blood Large (NEG) Urine Nitrite Positive (NEG) Urine Bilirubin Large (NEG) Urine Urobilinogen Dipstick 1.0 mg/dL (0.2 mg/dL) Urine Leukocyte Esterase Large (NEG) Urine RBC Tntc /HPF (0-2) Urine WBC 20-40 /HPF (0-4) Urine Squamous Epithelial Cells Many /LPF Urine Amorphous Sediment Present /HPF Urine Bacteria 0 /HPF (0-FEW) Urine Test Negative (NEG) Brief Hospital Course Ms. Redd is a 41 old female who presented with secondary syphilis, dysfunctional uterine bleeding. Consultation was placed to ID. She was given Rocephin 2 g, and then later transition to oral doxycycline given her extensive allergies. She previously had outpatient appointment with her EDUCATIONAL MANAGER to evaluate DUB, likely secondary to fibroids given her family history. Encouraged patient to reschedule this appointment for next week since she was inpatient at the time of that scheduled appointment. After discussion with Dr. Fragoso, she is stable to discharge home with doxycycline twice daily x10 days. Discharge Information Condition at Discharge: Stable Disposition/Orders: D/C to Home Scheduled Ergocalciferol (Vitamin D2) (Vitamin D2) 400 Unit Tablet, 400 UNIT PO DAILY, (Reported) Entered as Reported by: Kala Garcia on 04/22/182014 Last Action: Reviewed on 03/07/21 0137 by JUNE WORTHY RN Ferrous Sulfate (Ferrous Sulfate) 325 Mg Tablet, 1 TAB PO DAILY, #30 Ref 3 (Reported) Entered as Reported by: JC DOMINGUEZ on 03/11/177 Last Action: Continued on 03/07/21 1024 by DIXIE VERDIN MD Pantoprazole Sodium (Pantoprazole Sodium) 40 Mg Tablet., 1 TAB PO DAILY for , (Reported) Entered as Reported by: LYLA PADILLA on 03/07/21 1044 Last Action: Continued on 03/07/21 1111 by LYLA PADILLA Venlafaxine Hcl (Venlafaxine Hcl Er) 75 Mg Cap.er.24h, 1 CAP PO DAILY for , (Reported) Entered as Reported by: LYLA PADILLA on 03/07/21 1044 Last Action: Converted on 03/07/21 1111 by LYLA PADILLA Scheduled PRN Acetaminophen (Tylenol) 325 Mg Tablet, 650 MG PO PRN Q6-8HRS PRN for MILD PAIN / TEMP, (Reported) Entered as Reported by: BLADE IVERSON on 04/25/17 1743 Last Action: Reviewed on 03/07/21 0137 by JUNE WORTHY RN Alprazolam (Xanax) 0.5 Mg Tablet, 1 TAB PO BID PRN for ANXIETY / AGITATION, #60 (Reported) Entered as Reported by: ELIEZER PEARSON on 06/06/17 1855 Last Action: Continued on 03/07/21 1024 by DIXIE VERDIN MD Justicifation of Admission Dx: Justifications for Admission: Justification of Admission Dx: Yes DIXIE VERDIN MD Mar 08, 2021 10:29
[2021-03-08] MEDS ORDERED: DOXY100T PO (10:31)
[2021-03-08 11:00] VITALS: BP 123/82
--- NOTE | 2021-03-08 13:34 | NUR ---
DISCHARGE IV STIE DISCONTINUED, TELE MONITORY REMOVED. PT DISCHARGE INSTRUCTIONS COVERED, ET RX INSTRUCTIONS FOR DOXY GIVEN IT IS NEW. NOTED FOR PATIENT THAT SHE ALREADY HAD A DOSE OF IT TODAY, THAT WHE NEED ONLY TAKE ON ADDITIONAL DOSE THIS AFTERNOON. FAMILY ARRIVES FOR [facility] RELATIONS VICE PRESIDENT ET PT AMBULATES INDEPENDENTLY TO FRONT DOOR FOR DISCHARGE
[2021-03-08 18:19] LABS: GC PROBE Negative (Negative)
== END 2021-03-08 12:30 | disposition home or self-care (01) ==
LOC: ER 19:18 → 6 SOUTH 22:00 → INTOOBSV 22:00
PROVIDERS: ADMIT Internal Medicine; ATTEND Internal Medicine
DX: N93.8 Other specified abnormal uterine and vaginal bleeding (principal); A51.49 Other secondary syphilitic conditions; I47.1 Supraventricular tachycardia; Q21.1 Atrial septal defect; K21.9 Gastro-esophageal reflux disease without esophagitis; R21 Rash and other nonspecific skin eruption; N39.0 Urinary tract infection, site not specified; E78.5 Hyperlipidemia, unspecified; J45.909 Unspecified asthma, uncomplicated; F41.9 Anxiety disorder, unspecified; N92.0 Excessive and frequent menstruation with regular cycle; R93.89 Abnormal findings on diagnostic imaging of other specified body structures; Z98.51 Tubal ligation status; Z79.899 Other long term (current) drug therapy; Z98.890 Other specified postprocedural states; Z86.73 Personal history of transient ischemic attack (TIA), and cerebral infarction without residual deficits; Z87.891 Personal history of nicotine dependence
CPT/HCPCS: 36415; 74177; 80053; 81001; 81025; 83735; 84443; 84484; 85025; 85379; 85610; 85730; 86592; 86703; 86850; 86900; 86901; 87040; 87086; 87147; 87491; 87591; 96361; 96374; 99285; G0378; J0696; J7030; Q0111; Q9967; G0379

== ENCOUNTER 2021-03-10 11:49 | Emergency (ER) | payer MEDICAID ==
[~2021-03-10] VITALS: Ht 170.2 cm; Wt 54.5 kg
[~2021-03-10 11:49] MED LIST changes: +DOXY100T PO; +PANT40TA6 PO; +VENL75CA6 PO
[2021-03-10] MEDS ORDERED: ASPIRIN 325 MG TABLET PO ONE (12:15)
[2021-03-10] MEDS ORDERED: NITROGLYCERIN SUBLINGUAL 0.4 MG BOTTLE OF 25. SL PRN (12:15)
[2021-03-10 12:18] LABS: BASO # 0.1 x10^3/uL (0.0-0.2); BASO % 2 % (0-3); EOS % 0 % (0-3); HEMATOCRIT 34.6 % (36.0-47.0); HEMOGLOBIN 11.5 g/dL (12.0-15.5); LYMPH # 1.2 x10^3/uL (1.0-4.8); LYMPH % 36 % (24-48); MEAN CORPUSCULAR HEMOGLOBIN 29 pg (25-35); MEAN CORPUSCULAR HGB CONC 33 g/dL (31-37); MEAN CORPUSCULAR VOLUME 88 fL (79-100); MONO # 0.3 x10^3/uL (0.0-1.1); MONO % 9 % (0-9); NEUT # 1.7 x10^3/uL (1.8-7.7); NEUT % 53 % (31-73); PLATELET COUNT 447 x10^3/uL (140-400); RED BLOOD COUNT 3.94 x10^6/uL (3.50-5.40); RED CELL DISTRIBUTION WIDTH 19.9 % (11.5-14.5); WHITE BLOOD COUNT 3.2 x10^3/uL (4.0-11.0)
[2021-03-10 12:29] LABS: CALCIUM 9.1 mg/dL (8.5-10.1); GFR 74.7; POTASSIUM 3.6 mmol/L (3.5-5.1)
--- NOTE | 2021-03-10 12:32 | RAD ---
XR CHEST 1V History: Chest pain. Comparison: CT abdomen and pelvis 03/06/2021. Chest x-ray 04/26/2018 Technique: AP radiograph of the chest. Findings: The lungs are adequately and symmetrically inflated. No airspace consolidation, pleural effusion or p neumothorax. Right lower lobe calcified granuloma. The cardiomediastinal silhouette and pulmonary vas culature are within normal limits. No acute osseous abnormality. Soft tissues are unremarkable. Impression: 1. No acute cardiopulmonary process. Electronically signed by: Francisco Carney MD (03/10/2021 12:30 PM) [id number]
[2021-03-10 12:37] LABS: ALBUMIN 3.5 g/dL (3.4-5.0); ALBUMIN/GLOBULIN RATIO 0.7 (1.0-1.7); MAGNESIUM 1.7 mg/dL (1.8-2.4); TOTAL BILIRUBIN 0.2 mg/dL (0.2-1.0); TOTAL PROTEIN 8.8 g/dL (6.4-8.2)
--- NOTE | 2021-03-10 12:50 | PHYS DOC ---
Past Medical History Past Medical History: Anemia, Anxiety, CVA, GERD, Stroke Additional Past Medical Histor: PFO, syphilllus (AXEL RUSSELL CIVIL SERVICE CLERK) Past Surgical History: Tubal ligation Additional Past Surgical Histo: D&C (AXEL RUSSELL CIVIL SERVICE CLERK) Smoking Status: Never Smoker Alcohol Use: Rarely Drug Use: None (AXEL RUSSELL CIVIL SERVICE CLERK) General Adult EDM: Chief Complaint: CHEST PAIN HPI: HPI: Patient is a 41 year old female with history of anxiety, anemia, CVA with no deficits, who presents to the ED today complaining of a 6 out of 10 left-sided chest pain radiating to her left jaw and left upper extremity, patient states symptoms began 2 days ago after being discharged from the hospital. She states she was admitted Friday through of this week for stage II syphilis. She states she left the hospital and got home and started experiencing chest pain. Patient describes the pain as sharp and intermittent. Denies anything specifically exacerbating or relieving her pain. (AXEL RUSSELL CIVIL SERVICE CLERK) Review of Systems: Review of Systems: Constitutional: Denies fever or chills. [] Eyes: Denies change in visual acuity. [] HENT: Denies nasal congestion or sore throat. [] Respiratory: Denies cough or shortness of breath. [] Cardiovascular: Reports chest pain GI: Denies abdominal pain, nausea, vomiting, bloody stools or diarrhea. [] : Denies dysuria. [] Musculoskeletal: Denies back pain or joint pain. [] Integument: Denies rash. [] Neurologic: Denies headache, focal weakness or sensory changes. [] Endocrine: Denies polyuria or polydipsia. [] Psychiatric: Denies depression or anxiety. [] (AXEL RUSSELL CIVIL SERVICE CLERK) Heart Score: C/O Chest Pain: Yes HEART Score for Chest Pain: HEART Score for Chest Pain Response (Comments) Value History Slighlty/Non-Suspicious 0 ECG Normal 0 Age < 45 0 Risk Factors No Risk Factors 0 Troponin < Normal Limit 0 Total 0 Risk Factors: Risk Factors: DM, Current or recent (<one month) smoker, HTN, HLP, family history of CAD, obesity. Risk Scores: Score 0 - 3: 2.5% MACE over next 6 weeks - Discharge Home Score 4 - 6: 20.3% MACE over next 6 weeks - Admit for Clinical Observation Score 7 - 10: 72.7% MACE over next 6 weeks - Early Invasive Strategies (AXEL RUSSELL CIVIL SERVICE CLERK) Current Medications: Current Medications Medications (Trade) Dose Ordered Sig/[facility] Start Time Stop Time Status Last Admin Dose Admin Aspirin (Cherry Aspirin) 325 mg 1X ONCE 03/10/21 12:15 03/10/21 12:16 DC 03/10/21 12:10 325 MG Nitroglycerin (Nitrostat) 0.4 mg PRN Q5MIN PRN 03/10/21 12:15 03/11/21 12:14 (AXEL RUSSELL CIVIL SERVICE CLERK) Allergies: Allergies: Allergies Coded Allergies Type Severity Reaction Last Updated Verified diphenhydramine Allergy Severe 02/04/17 Yes fentanyl Allergy Severe 05/09/17 Yes morphine Allergy Severe shortness of breath 11/21/17 Yes nickel Allergy Severe Hives 03/07/21 Yes amoxicillin Allergy Intermediate hives 02/04/17 Yes clindamycin Allergy Intermediate 02/06/17 Yes hydrocodone Allergy Intermediate HIVES, tolerates Percocet 02/04/17 Yes ibuprofen Allergy Intermediate HIVES,tolerates aspirin 02/04/17 Yes metronidazole Allergy Intermediate 04/22/18 Yes nitroglycerin Allergy Intermediate 03/10/21 Yes buspirone Adverse Reaction Intermediate tachycardia 03/10/21 Yes paroxetine Adverse Reaction Intermediate tachycardia, chest pain 03/10/21 Yes (AXEL RUSSELL CIVIL SERVICE CLERK) Physical Exam: PE: Constitutional: Well developed, well nourished, no acute distress, non-toxic appearance. [] HENT: Normocephalic, atraumatic, bilateral external ears normal, oropharynx moist, no oral exudates, nose normal. [] Eyes: PERRLA, EOMI, conjunctiva normal, no discharge. [] Neck: Normal range of motion, no tenderness, supple, no stridor. [] Cardiovascular:Heart rate regular rhythm, no murmur [] Lungs & Thorax: Bilateral breath sounds clear to auscultation [] Abdomen: Bowel sounds normal, soft, no tenderness, no masses, no pulsatile masses. [] Skin: Warm, dry, no erythema, no rash. [] Back: No tenderness, no CVA tenderness. [] Extremities: No tenderness, no cyanosis, no clubbing, ROM intact, no edema. [] Neurologic: Alert and oriented X 3, normal motor function, normal sensory function, no focal deficits noted. [] Psychologic: Affect normal, judgement normal, mood normal. [] (AXEL RUSSELL APRN) Current Patient Data: Labs: Laboratory Tests Test 03/10/21 12:05 White Blood Count 3.2 x10^3/uL (4.0-11.0) L Red Blood Count 3.94 x10^6/uL (3.50-5.40) Hemoglobin 11.5 g/dL (12.0-15.5) L Hematocrit 34.6 % (36.0-47.0) L Mean Corpuscular Volume 88 fL (79-100) Mean Corpuscular Hemoglobin 29 pg (25-35) Mean Corpuscular Hemoglobin Concent 33 g/dL (31-37) Red Cell Distribution Width 19.9 % (11.5-14.5) H Platelet Count 447 x10^3/uL (140-400) H Neutrophils (%) (Auto) 53 % (31-73) Lymphocytes (%) (Auto) 36 % (24-48) Monocytes (%) (Auto) 9 % (0-9) Eosinophils (%) (Auto) 0 % (0-3) Basophils (%) (Auto) 2 % (0-3) Neutrophils # (Auto) 1.7 x10^3/uL (1.8-7.7) L Lymphocytes # (Auto) 1.2 x10^3/uL (1.0-4.8) Monocytes # (Auto) 0.3 x10^3/uL (0.0-1.1) Eosinophils # (Auto) 0.0 x10^3/uL (0.0-0.7) Basophils # (Auto) 0.1 x10^3/uL (0.0-0.2) Sodium Level 137 mmol/L (136-145) Potassium Level 3.6 mmol/L (3.5-5.1) Chloride Level 100 mmol/L (98-107) Carbon Dioxide Level 26 mmol/L (21-32) Anion Gap 11 (6-14) Blood Urea Nitrogen 7 mg/dL (7-20) Creatinine 1.0 mg/dL (0.6-1.0) Estimated GFR (Cockcroft-Gault) 74.7 BUN/Creatinine Ratio 7 (6-20) Glucose Level 115 mg/dL (70-99) H Calcium Level 9.1 mg/dL (8.5-10.1) Magnesium Level 1.7 mg/dL (1.8-2.4) L Total Bilirubin 0.2 mg/dL (0.2-1.0) Aspartate Amino Transferase (AST) 17 U/L (15-37) Alanine Aminotransferase (ALT) 18 U/L (14-59) Alkaline Phosphatase 59 U/L (46-116) Troponin I Quantitative < 0.017 ng/mL (0.000-0.055) TQ-Ulq-Y-Type Natriuretic Peptide 15 pg/mL (0-124) Total Protein 8.8 g/dL (6.4-8.2) H Albumin 3.5 g/dL (3.4-5.0) Albumin/Globulin Ratio 0.7 (1.0-1.7) L Thyroid Stimulating Hormone (TSH) 2.241 uIU/mL (0.358-3.74) Laboratory Tests 03/10/21 12:05 Laboratory Tests 03/10/21 12:05 Vital Signs: Vital Signs Date Time Temp Pulse Resp B/P (MAP) Pulse Ox O2 Delivery O2 Flow Rate FiO2 03/10/21 12:38 71 14 130/79 (96) 97 Room Air 03/10/21 11:54 98.7 98.7 (AXEL RUSSELL [facility]) EKG: EK interpreted by Dr. Bailon sinus tachycardia heart rate 104 no STEMI [] (AXEL RUSSELL [facility]) Radiology/Procedures: Radiology/Procedures: []PROCEDURE: PORTABLE CHEST 1V XR CHEST 1V History: Chest pain. Comparison: CT abdomen and pelvis 03/06/2021. Chest x-ray 04/26/2018 Technique: AP radiograph of the chest. Findings: The lungs are adequately and symmetrically inflated. No airspace consolidation, pleural effusion or pneumothorax. Right lower lobe calcified granuloma. The card iomediastinal silhouette and pulmonary vasculature are within normal limits. No acute osseous abnormality. Soft tissues are unremarkable. Impression: 1. No acute cardiopulmonary process. Electronically signed by: Francisco Rojas MD (03/10/2021 12:30 PM) [id number] DICTATED and SIGNED BY: FRANCISCO ROJAS MD DATE: 03/10/21 [id number] 0 (AXEL RUSSELL APRN) Course & Med Decision Making: Course & Med Decision Making Pertinent Labs and Imaging studies reviewed. (See chart for details) This is a 41-year-old female patient presenting to the ED today complaining of left-sided chest pain, symptoms began 2 days ago after being discharged from the hospital. She was admitted for second stage II syphilis. CBC with a WBC of 3.2, patient has history of leukopenia. CMP with no acute findings, troponin is normal, EKG is negative, chest x-ray is negative 2 troponins were done 3 hours apart which were negative. Patient was discharged home. Follow-up with PCP and the health department for syphilis management. Encouraged to continue taking her syphilis treatment medicine. (AXEL RUSSELL APRN) Dragon Disclaimer: Dragon Disclaimer: This electronic medical record was generated, in whole or in part, using a voice recognition dictation system. (AXEL RUSSELL APRN) Departure Departure Impression: Primary Impression: Chest pain Qualified Codes: R07.9 - Chest pain, unspecified Disposition: HOME / SELF CARE / HOMELESS Condition: STABLE Referrals: ALEXUS ROBLES (PCP) follow up next week Patient Instructions: Chest Pain (Nonspecific), [id number] Additional Instructions: You were evaluated in the emergency room for chest pain. Your cardiac work-up is negative for any acute findings. We encourage you to continue taking the medicine your blood from the hospital for syphilis treatment. Please encourage your partner to also get treated. Follow-up with your primary care doctor next week Attending Signature Attending Signature I have reviewed the PA/BUSINESS INSIGHT AND ANALYTICS MANAGER's note and plan of care. I was available for consultation as needed during the patient's visit in the emergency department. I agree with the clinical impression, plan, and disposition. (LEANNE BAILON DO) AXEL RUSSELL APRN Mar 10, 2021 12:50 LEANNE BAILON DO Mar 10, 2021 17:45
[2021-03-10 13:13] LABS: BILIRUBIN,URINE NEGATIVE (NEG); CLARITY,URINE CLEAR; COLOR,URINE YELLOW; NITRITE,URINE NEGATIVE (NEG); PH,URINE 6.5 (<5.0-8.0); PROTEIN,URINE NEGATIVE (NEG-TRACE); UROBILINOGEN,URINE 0.2 mg/dL (0.2 mg/dL)
[2021-03-10 13:22] LABS: AMPHETAMINE/METHAMPHETAMINE NEG (NEG); BARBITURATES NEG (NEG); BENZODIAZEPINES NEG (NEG); CANNABINOIDS POS (NEG); COCAINE NEG (NEG); METHADONE NEG (NEG); OPIATES NEG (NEG); PHENCYCLIDINE NEG (NEG)
[2021-03-10 13:25] LABS: BACTERIA,URINE 0 /HPF (0-FEW); RBC,URINE OCC /HPF (0-2); WBC,URINE OCC /HPF (0-4)
[2021-03-10 13:26] LABS: AMORPHOUS SEDIMENT,UR PRESENT /HPF
[2021-03-10 14:20] VITALS: BP 135/79
--- NOTE | 2021-03-10 16:54 | EKG ---
[facility] [address] [place] [address] Test Date: 2021-03-10 Test Time: 11:54:19 Pat Name: NARA SEGUNDO Department: Room: Gender: F Research Contracts Supervisor: [id number] : 1980 Requested By: AXEL RUSSELL Order Number: [id number] Reading MD: Fidencio Powell MD Measurements Intervals [place] Rate: 104 P: 90 KS: 130 QRS: 51 QRSD: 76 T: 12 QT: 314 QTc: 419 Interpretive Statements SINUS TACHYCARDIA Electronically Signed On 03-12-2021 10:35:29 CDT by Fidencio Powell MD
[2021-03-10] MEDS ORDERED: ALPR0.25 PO (18:03)
== END 2021-03-10 15:58 | disposition home or self-care (01) ==
LOC: ER 11:49
DX: R07.89 Other chest pain (principal); F41.9 Anxiety disorder, unspecified; K21.9 Gastro-esophageal reflux disease without esophagitis; Z86.2 Personal history of diseases of the blood and blood-forming organs and certain disorders involving the immune mechanism; Z86.73 Personal history of transient ischemic attack (TIA), and cerebral infarction without residual deficits; Z88.8 Allergy status to other drugs, medicaments and biological substances; Z88.1 Allergy status to other antibiotic agents; Z88.5 Allergy status to narcotic agent; Z88.6 Allergy status to analgesic agent
CPT/HCPCS: 36415; 71045; 80053; 80307; 81001; 83735; 83880; 84443; 84484; 85025; 85379; 93005; 99285-25